=== PATIENT | male | born 1960 | race Caucasian/White ===

== ENCOUNTER 2020-04-13 15:40 | Emergency (ER) | payer BC, SELFPAY ==
[2020-04-13 17:39] LABS: Absolute Lymphocytes (CBC) 0.5 K/uL (0.7-4.9); Basophils % 0.2 % (0-1.3); Hematocrit 43.6 % (39.6-49.0); Lymphocytes % 5.3 % (15.3-44.8); MPV 8.5 fL (7.6-11.3); RBC Red Blood Cell Count 3.85 M/uL (4.33-5.43)
[2020-04-13 17:40] LABS: Urine Blood TRACE (NEG); Urine Glucose NEGATIVE (NEG); Urine Protein NEGATIVE (NEG); Urine pH 7.5 (5.0-7.0)
[2020-04-13 17:40] LABS: Protime INR 1.17
[2020-04-13] MEDS ORDERED: NA CHLORIDE 0.9% 1,000 ML ONE (17:44)
[2020-04-13 17:51] LABS: Urine Bacteria <20 /HPF (NONE SEEN); Urine Culture Reflex Order NOT NEEDED
[2020-04-13 17:56] LABS: ALT/SGPT 20 U/L (12-78); AST/SGOT 62 U/L (15-37); Albumin 2.3 g/dL (3.4-5.0); Alkaline Phosphatase 85 U/L (45-117); BUN Blood Urea Nitrogen 8 mg/dL (7-18); Bicarbonate 23 mmol/L (21-32); Bilirubin Direct 0.7 mg/dL (0-0.2); Bilirubin Total 1.2 mg/dL (0.2-1.0); Glucose Level 110 mg/dL (74-106); Magnesium 1.5 mg/dL (1.8-2.4); Potassium 3.5 mmol/L (3.5-5.1); Protein, Total 7.5 g/dL (6.4-8.2); Sodium Level 130 mmol/L (136-145); Troponin (Emerg Dept Use Only) < 0.02 ng/mL (0.0-0.045)
[2020-04-13 18:40] LABS: Blood Morphology Comment NOTED (NOT SEEN); Macrocytosis 1+; Platelet Estimate ADEQ; Urine White Blood Cell Casts OK
--- NOTE | 2020-04-13 18:54 | RAD REPORT ---
EXAM DESCRIPTION: RAD - Chest Single View - 04/13/2020 5:46 pm CLINICAL HISTORY: weakness, shortness of breath TECHNIQUE: AP portable chest image was obtained 04/13/2020 5:46 pm . FINDINGS: No focal mass or consolidation. Interstitial markings are mildly prominent. This is suspec dnanielle to be baseline pattern. No significant failure or volume overload. Heart and vasculature are norm al. No measurable pleural effusion and no pneumothorax. No acute bony abnormality seen. No acute aort ic findings suspected. IMPRESSION: No acute cardiopulmonary process.
[2020-04-13] MEDS ORDERED: Magnesium Sulfate 2gm IVPB 2 G/50 ML BAG IV ONE (18:55)
--- NOTE | 2020-04-13 21:03 | ER ---
Nurse's Notes [facility] Name: Graham Day Age: 60 yrs Sex: Male : 1960 Arrival Date: 04/13/2020 Time: 15:50 Bed 6 Private MD: Diagnosis: Weakness;Hypomagnesemia Presentation: 04/13 15:51 Chief complaint: EMS states: Tones out for generalized weakness that began on Saturday, jl7 feels shaky on standing, pt denies pain, denies N/V/D, reports having the chills on Saturday evening, did not take his temperature. Coronavirus screen: Patient denies a cough. Patient denies shortness of breath or difficulty breathing. Patient denies measured and/or subjective temperature greater than 100.4F prior to today's visit. Patient denies travel on a cruise ship or to a country the [facility] currently lists as an affected area. Patient denies contact with known and/or suspected case of COVID-19. Ebola Screen: No symptoms or risks identified at this time. Initial Sepsis Screen: Does the patient meet any 2 criteria? HR > 90 bpm. No. Patient's initial sepsis screen is negative. Does the patient have a suspected source of infection? No. Patient's initial sepsis screen is negative. Risk Assessment: Do you want to hurt yourself or someone else? Patient reports no desire to harm self or others. Onset of symptoms was April 11, 2020. Care prior to arrival: Medication(s) given: Normal saline infusion, 1000 mL, IV initiated. 18 GA, in the left antecubital area, Glucose check: 126 BP 105/72; HR 114; O2 95%; RR 18; Temp 98.7. Transition of care: patient was not received from another setting of care. 15:51 Method Of Arrival: EMS: [facility] jl7 15:51 Acuity: ANA 3 jl7 Triage Assessment: 15:59 General: Appears in no apparent distress. uncomfortable, Behavior is calm, cooperative, jl7 appropriate for age. Pain: Denies pain. Neuro: Level of Consciousness is awake, alert, obeys commands, Oriented to person, place, time, situation, Reports weakness in right leg and left leg. Cardiovascular: Patient's skin is warm and dry. Respiratory: Airway is patent Respiratory effort is even, unlabored, Respiratory pattern is regular, symmetrical. Derm: Skin is pink, warm \\T\\ dry. Historical: - Allergies: 15:59 No Known Allergies; jl7 - Home Meds: 15:59 None [Active]; jl7 - PMHx: 15:59 Hypertension; jl7 - PSHx: 15:59 None; jl7 - Immunization history:: Adult Immunizations unknown. - Social history:: Smoking status: Patient reports the use of cigarette tobacco products, smokes one pack cigarettes per day. Patient uses alcohol, on a daily basis. "About a pint of whiskey a day.". Screenin:32 Abuse screen: Denies threats or abuse. Denies injuries from another. Nutritional jl7 screening: No deficits noted. Tuberculosis screening: No symptoms or risk factors identified. Fall Risk IV access (20 points). Gait- Weak (10 pts.). Total Choi Fall Scale indicates Low Risk Score (25-44 pts). Fall prevention measures have been instituted. Side Rails Up X 2 Placed close to Nursing Station Frequent Obs/Assesments occuring As available Patient and Family Educated on Fall Prevention Program and strategies. Assessment: 17:32 Reassessment: Patient appears in no apparent distress at this time. No changes from [facility] previously documented assessment. Patient and/or family updated on plan of care and expected duration. Pain level reassessed. Patient is alert, oriented x 3, equal unlabored respirations, skin warm/dry/pink. 18:53 Reassessment: Patient appears in no apparent distress at this time. No changes from [facility] previously documented assessment. Patient and/or family updated on plan of care and expected duration. Pain level reassessed. Patient is alert, oriented x 3, equal unlabored respirations, skin warm/dry/pink. 19:40 General: Appears in no apparent distress. Behavior is appropriate for age. ea 19:40 Neuro: Level of Consciousness is awake, alert, obeys commands, Oriented to person, ea place, time. Cardiovascular: Patient's skin is warm and dry. Respiratory: Airway is patent Respiratory effort is even, unlabored, Respiratory pattern is regular, symmetrical. Derm: Skin is dry, Skin is normal, Skin temperature is warm. 20:00 Reassessment: Patient and/or family updated on plan of care and expected duration. Pain ea level reassessed. Patient is alert, oriented x 3, equal unlabored respirations, skin warm/dry/pink. 21:20 Reassessment: Patient and/or family updated on plan of care and expected duration. Pain ea level reassessed. Patient is alert, oriented x 3, equal unlabored respirations, skin warm/dry/pink. Discharge instruction given to patient, verbalized the understanding of instruction. Pt left ED ambulatory tolerating well. Vital Signs: 15:51 BP 107 / 74; Pulse 100; Resp 17 S; Temp 98.3(O); Pulse Ox 95% on R/A; Weight 88.45 kg jl7 (R); Height 5 ft. 11 in. (180.34 cm) (R); Pain 0/10; 17:31 BP 111 / 85; Pulse 88; Resp 17 S; Pulse Ox 97% on R/A; Pain 0/10; jl7 18:53 BP 111 / 78; Pulse 88; Resp 17; Pulse Ox 97% ; jl7 19:58 BP 139 / 85; Pulse 63; Resp 18; Pulse Ox 99% on R/A; ea 20:30 BP 127 / 79; Pulse 73; Resp 18; Pulse Ox 99% ; ea 21:09 BP 120 / 79; Pulse 68; Resp 18; Temp 98.0(TE); Pulse Ox 98% on R/A; ea 15:51 Body Mass Index 27.20 (88.45 kg, 180.34 cm) 7 ED Course: 15:50 Patient arrived in ED. 7 15:[address] [facility] 15:58 Subhash Hernandez, RN is Primary Nurse. 7 15:59 Arm band placed on right wrist. 7 16:00 Patient has correct armband on for positive identification. Bed in low position. Call [facility] light in reach. Side rails up X2. wellness director on. Pulse ox on. NIBP on. Warm blanket given. 16:00 Initial lab(s) drawn, by al, sent to lab. Urine collected: clean catch specimen, clear. [facility] Maintain EMS IV. Dressing intact. Good blood return noted. Site clean \\T\\ dry. Gauge \\T\\ site: 18 Left AC. 16:44 Sumit Flanagan PA is PHCP. cp 16:44 Graham Trujillo MD is Attending Physician. cp 17:40 EKG done, by ED staff, reviewed by Sumit CARRERA. [facility] 17:47 XRAY Chest (1 view) In Process Unspecified. EDMS 21:08 No provider procedures requiring assistance completed. ea 21:15 IV discontinued, intact, bleeding controlled, No redness/swelling at site. Pressure ea dressing applied. 23:56 US Abdomen Limited In Process Unspecified. EDMS Administered Medications: 17:38 Drug: NS 0.9% 1000 ml Route: IV; Rate: 1000 ml/hr; Site: left antecubital; [facility] 17:45 Follow up: Rate change 75 ml/hr [facility] 20:00 Follow up: Response: No adverse reaction; IV Status: Completed infusion ea 18:52 Drug: Magnesium Sulfate 2 grams Route: IVPB; Infused Over: 1 hrs; Site: left jl7 antecubital; 20:00 Follow up: Response: No adverse reaction; IV Status: Completed infusion ea Outcome: 21:03 Discharge ordered by . cp 21:21 Discharged to home ambulatory. ea 21:21 Condition: stable 21:21 Discharge instructions given to patient, Instructed on discharge instructions, follow up and referral plans. Demonstrated understanding of instructions, follow-up care. 21:22 Patient left the ED. ea Signatures: Dispatcher [employer] EDMS Sumit Flanagan PA PA cp Leal, Jahala RN RN [facility] Deana Bailey [facility] Agnes Lazaro RN RN adrienne Corrections: (The following items were deleted from the chart) 21:08 19:58 BP 139 / 85; Pulse 33bpm; Resp 18bpm; Pulse Ox 99% RA; ea ea
--- NOTE | 2020-04-13 21:04 | EDPHYS ---
Physician Documentation [facility] Name: Graham Day Age: 60 yrs Sex: Male : 1960 Arrival Date: 04/13/2020 Time: 15:50 Bed 6 Private MD: ED Physician Graham Trujillo HPI: 04/13 17:15 This 60 yrs old Male presents to ER via EMS with complaints of General cp Weakness. 17:15 Onset: The symptoms/episode began/occurred 2 day(s) ago. cp 17:15 Associated signs and symptoms: Pertinent positives: vomiting yesterday, none today, cp Pertinent negatives: abdominal pain, chest pain, constipation, cough, diarrhea, dysuria, fever, headache, sore throat. Historical: - Allergies: 15:59 No Known Allergies; jl7 - Home Meds: 15:59 None [Active]; jl7 - PMHx: 15:59 Hypertension; jl7 - PSHx: 15:59 None; jl7 - Immunization history:: Adult Immunizations unknown. - Social history:: Smoking status: Patient reports the use of cigarette tobacco products, smokes one pack cigarettes per day. Patient uses alcohol, on a daily basis. "About a pint of whiskey a day.". ROS: 17:20 Constitutional: Positive for chills, Negative for body aches, fever, poor PO intake. cp 17:20 Eyes: Negative for injury, pain, redness, and discharge. cp 17:20 ENT: Negative for ear pain, sore throat, difficulty swallowing, difficulty handling secretions. 17:20 Cardiovascular: Negative for chest pain, edema, palpitations. 17:20 Respiratory: Negative for cough, shortness of breath, wheezing. 17:20 Abdomen/GI: Negative for abdominal pain, diarrhea, constipation, anorexia, active vomiting. 17:20 Back: Negative for pain at rest, pain with movement. 17:20 : Negative for urinary symptoms. 17:20 Skin: Negative for rash. 17:20 Neuro: Positive for weakness, Negative for altered mental status, headache, syncope. 17:20 All other systems are negative. cp Exam: 17:27 Constitutional: The patient appears in no acute distress, alert, awake, cp non-diaphoretic, non-toxic, well developed, well nourished. 17:27 Head/Face: Normocephalic, atraumatic. cp 17:27 Eyes: Periorbital structures: appear normal, Pupils: equal, round, and reactive to light and accomodation, Extraocular movements: intact throughout, Conjunctiva: normal, no exudate, no injection, Sclera: no appreciated abnormality, Lids and lashes: appear normal, bilaterally. 17:27 ENT: External ear(s): are unremarkable, Ear canal(s): are normal, clear, TM's: dullness, bilaterally, Nose: is normal, Mouth: Lips: moist, Oral mucosa: pink and intact, moist, Posterior pharynx: is normal, airway is patent, no erythema, no exudate, Voice: is normal. 17:27 Neck: ROM/movement: is normal, is supple, without pain, no range of motions limitations, no nuchal rigidity. 17:27 Chest/axilla: Inspection: normal, Palpation: is normal, no crepitus, no tenderness. 17:27 Cardiovascular: Rate: normal, Rhythm: regular, Edema: is not appreciated, JVD: is not appreciated. 17:27 Respiratory: the patient does not display signs of respiratory distress, Respirations: normal, no use of accessory muscles, no retractions, labored breathing, is not present, Breath sounds: are clear throughout, no decreased breath sounds. 17:27 Abdomen/GI: Inspection: abdomen appears normal, Bowel sounds: active, all quadrants, Palpation: abdomen is soft and non-tender, in all quadrants. 17:27 Back: pain, is absent, ROM is normal. 17:27 Skin: cellulitis, is not appreciated, no rash present. 17:27 Neuro: Orientation: to person, place \\T\\ time. Mentation: is normal, Cerebellar function: is grossly normal, Motor: moves all fours, strength is normal, Sensation: no obvious gross deficits. 17:52 ECG was reviewed by the Attending Physician. cp Vital Signs: 15:51 BP 107 / 74; Pulse 100; Resp 17 S; Temp 98.3(O); Pulse Ox 95% on R/A; Weight 88.45 kg jl7 (R); Height 5 ft. 11 in. (180.34 cm) (R); Pain 0/10; 17:31 BP 111 / 85; Pulse 88; Resp 17 S; Pulse Ox 97% on R/A; Pain 0/10; jl7 18:53 BP 111 / 78; Pulse 88; Resp 17; Pulse Ox 97% ; jl7 19:58 BP 139 / 85; Pulse 63; Resp 18; Pulse Ox 99% on R/A; ea 20:30 BP 127 / 79; Pulse 73; Resp 18; Pulse Ox 99% ; ea 21:09 BP 120 / 79; Pulse 68; Resp 18; Temp 98.0(TE); Pulse Ox 98% on R/A; ea 15:51 Body Mass Index 27.20 (88.45 kg, 180.34 cm) jl7 MDM: 16:53 Patient medically screened. cp 18:00 Differential diagnosis: viral Infection, bacterial infection, pneumonia UTI, cp dehydration, electrolyte abnormality, cardiac arrythmia, CT. 21:02 Data reviewed: vital signs, nurses notes, lab test result(s), EKG, radiologic studies, cp plain films, and as a result, I will discharge patient. 21:02 Test interpretation: by ED physician or midlevel provider: ECG. Counseling: I had a cp detailed discussion with the patient and/or guardian regarding: the historical points, exam findings, and any diagnostic results supporting the discharge/admit diagnosis, lab results, radiology results, to return to the emergency department if symptoms worsen or persist or if there are any questions or concerns that arise at home. Response to treatment: the patient's symptoms have markedly improved after treatment, patient is well hydrated. and as a result, I will discharge patient. 04/13 17:11 Order name: Urine Microscopic Only; Complete Time: 18:23 cp 04/13 18:23 Interpretation: Normal except: URBC 5-10. cp 04/13 17:11 Order name: Basic Metabolic Panel; Complete Time: 18:23 cp 04/13 18:24 Interpretation: Normal except: NA 130; GLUC 110; CA 7.9. cp 04/13 17:11 Order name: CBC with Diff; Complete Time: 19:05 cp 04/13 18:23 Interpretation: Normal except: RBC 3.85; MCV 113.3; MCH 39.4; SKY% 86.7; LYM% 5.3; NEUT cp A 8.7; LYMA 0.5. 04/13 17:11 Order name: LFT's; Complete Time: 18:23 cp 04/13 18:24 Interpretation: Normal except: AST 62; BILIT 1.2; BILID 0.7; ALB 2.3; GLOB 5.2; A/G 0.4.cp / 17:11 Order name: Magnesium; Complete Time: 18:23 cp / 19:06 Interpretation: Abnormal: MG 1.5. cp / 17:11 Order name: PT-INR; Complete Time: 18:23 cp 04/13 17:11 Order name: Troponin (emerg Dept Use Only); Complete Time: 18:23 cp 04/13 19:06 Interpretation: Reviewed. cp / 17:11 Order name: EKG; Complete Time: 17:12 cp 04/13 17:11 Order name: XRAY Chest (1 view); Complete Time: 19:05 cp 04/13 19:05 Interpretation: Report review. cp 04/13 17:19 Order name: Urine Dipstick--Ancillary (enter results); Complete Time: 18:23 bd 04/13 19:06 Interpretation: Normal except: UBLD TRACE; UPH 7.5. cp / 18:40 Order name: CBC Smear Scan; Complete Time: 19:05 EDMS 06/03 17:11 Order name: Urine Dipstick-Ancillary (obtain specimen); Complete Time: 17:20 cp / 17:11 Order name: Cardiac monitoring; Complete Time: 17:20 cp / 17:11 Order name: EKG - Nurse/Tech; Complete Time: 17:42 cp / 17:11 Order name: IV Saline Lock; Complete Time: 17:20 cp 04/13 17:11 Order name: Labs collected and sent; Complete Time: 17:20 cp 03 17:11 Order name: O2 Per Protocol; Complete Time: 17:20 cp /03 17:11 Order name: O2 Sat Monitoring; Complete Time: 17:20 cp /03 21:01 Order name: Vital Signs: recheck to include temp; Complete Time: 21:09 cp EC:52 Rate is 88 beats/min. Rhythm is regular. VA interval is normal. QRS interval is normal. cp QT interval is normal. T waves are Inverted in leads aVL, aVR. Interpreted by me. Reviewed by me. Administered Medications: 17:38 Drug: NS 0.9% 1000 ml Route: IV; Rate: 1000 ml/hr; Site: left antecubital; [facility] 17:45 Follow up: Rate change 75 ml/hr [facility] 20:00 Follow up: Response: No adverse reaction; IV Status: Completed infusion ea 18:52 Drug: Magnesium Sulfate 2 grams Route: IVPB; Infused Over: 1 hrs; Site: left 7 antecubital; 20:00 Follow up: Response: No adverse reaction; IV Status: Completed infusion ea Disposition: 04/14 09:08 Co-signature as Attending Physician, Graham Trujillo MD I agree with the assessment and kdr plan of care. Disposition: 04/13/20 21:03 Discharged to Home. Impression: Weakness, Hypomagnesemia. - Condition is Stable. - Discharge Instructions: Hypomagnesemia, Weakness. - Medication Reconciliation Form, Thank You Letter, Antibiotic Education, Prescription Opioid Use form. - Follow up: Private Physician; When: 1 - 2 days; Reason: Recheck today's complaints. - Problem is new. - Symptoms have improved. Signatures: Dispatcher [employer] EDSD Graham Trujillo MD MD kdr Sumit Flanagan PA PA cp Leal, Jahala, RN RN jl7 Agnes Lazaro RN RN ea Corrections: (The following items were deleted from the chart) 04/13 18:24 18:23 Normal except: NA 130; GLUC 110. cp cp 21:22 21:03 04/13/2020 21:03 Discharged to Home. Impression: Weakness; Hypomagnesemia. ea Condition is Stable. Forms are Medication Reconciliation Form, Thank You Letter, Antibiotic Education, Prescription Opioid Use. Follow up: Private Physician; When: 1 - 2 days; Reason: Recheck today's complaints. Problem is new. Symptoms have improved. cp
[2020-04-13 22:09] VITALS: BP 120/79; TEMP 98; O2SAT 98
--- NOTE | 2020-04-14 09:55 | EKG ---
Test Date: 2020-04-13 Test Time: 17:43:42 Road Boss: JOSE MEASUREMENT RESULTS: Intervals: Rate: 88 CT: 184 QRSD: 80 QT: 364 QTc: 440 Dunlap: P: 39 CT: 184 QRS: 26 T: 74 INTERPRETIVE STATEMENTS: Sinus rhythm with occasional premature ventricular complexes Septal infarct, age undetermined Abnormal ECG No previous ECG available for comparison Electronically Signed On 04-14-20 09:53:58 CDT by Jose Barros
== END 2020-04-13 21:22 | disposition home or self-care (01) ==
LOC: ER 15:40
DX: E83.42 Hypomagnesemia (principal); I10 Essential (primary) hypertension; F17.210 Nicotine dependence, cigarettes, uncomplicated
CPT/HCPCS: 36415; 71045; 76705; 80048; 80076; 81003; 81015; 83735; 84484; 85025; 85610; 93005; 96361; 96365; 99284; J3475; J7030

== ENCOUNTER 2022-07-09 20:10 | Inpatient (IN) | payer SELFPAY ==
[2022-07-09] MEDS ORDERED: FAMOTIDINE 20 MG/2 ML VIAL IV ONE (21:24)
[2022-07-09] MEDS ORDERED: NA CHLORIDE 0.9% 500 ML ONE (21:24)
[2022-07-09] MEDS ORDERED: THIAMINE 200 MG/2 ML INJ ONE (21:24)
[2022-07-09 21:33] LABS: Absolute Lymphocytes (CBC) 1.4 K/uL (0.7-4.9); Lymphocytes % 11.7 % (15.3-44.8); MCV 116.3 fL (80-100); MPV 8.4 fL (7.6-11.3); RBC Red Blood Cell Count 3.18 M/uL (4.33-5.43)
[2022-07-09 21:38] LABS: Protime INR 1.46
[2022-07-09] MEDS ORDERED: MAGNESIUM SULFATE 1 gm IVPB 1 GM/100 ML BAG IV ONE ×2 (21:39→23:39)
[2022-07-09] MEDS ORDERED: ONDANSETRON 4 MG/2 ML VIAL ONE (21:40)
[2022-07-09] MEDS ORDERED: MORPHINE 4 MG/ML SYR ONE (21:40)
[2022-07-09 21:46] LABS: Urine Blood Negative (Negative); Urine Glucose Negative (Negative); Urine Protein Negative (Negative); Urine Specific Gravity 1.015 (1.005-1.030)
--- NOTE | 2022-07-09 22:01 | RAD REPORT ---
EXAM DESCRIPTION: RAD - Chest Single View - 07/09/2022 9:42 pm CLINICAL HISTORY: PAIN, fall with chest and shoulder pain COMPARISON: Portable 04/13/2020 TECHNIQUE: AP portable chest image was obtained 07/09/2022 9:42 pm . FINDINGS: Chronic interstitial lung pattern matches comparison. No peripheral mass or consolidations seen. Right hemidiaphragm elevation noted. Heart and vasculature are normal. No measurable pleural e ffusion and no pneumothorax. Proximal humerus findings are separately detailed in right shoulder repo rt. No acute aortic findings suspected. IMPRESSION: No acute cardiopulmonary process. No significant change from comparison imaging.
--- NOTE | 2022-07-09 22:03 | RAD REPORT ---
EXAM DESCRIPTION: Shoulder Right 2 View - 07/09/2022 9:42 pm CLINICAL HISTORY: PAIN, fall COMPARISON: No comparisons TECHNIQUE: Internal and external rotation views of the right shoulder were obtained. FINDINGS: Comminuted proximal humerus fracture is seen. Oblique fracture extends through the greater tuberosity. Fracture line extends inferiorly into the proximal shaft of the humerus. No significant distraction. No pathologic bone process seen. Humeral head articular surface maintains articulation w ith the bony glenoid. AC joint is normal in appearance. IMPRESSION: Proximal humerus fracture as detailed.
[2022-07-09 22:07] LABS: Albumin 1.9 g/dL (3.4-5.0); Bilirubin Direct 3.4 mg/dL (0-0.2); Troponin High Sensitivity 11.3 pg/mL (<58.9)
[2022-07-09 22:12] LABS: Bilirubin Total 5.4 mg/dL (0.2-1.0); Magnesium 1.3 mg/dL (1.8-2.4); Potassium 2.4 mmol/L (3.5-5.1)
--- NOTE | 2022-07-09 22:19 | EDPHYS ---
Physician Documentation [facility] Name: Graham Day Age: 62 yrs Sex: Male : 1960 Arrival Date: 07/09/2022 Time: 20:12 Bed 15 Private MD: ED Physician Sumit Lau HPI: 07/09 20:50 This 62 yrs old Male presents to ER via EMS with complaints of falls and hx tyler of shoulder pain. 20:50 The patient or guardian complains of decreased range of motion, pain. right shoulder. tyler Context: The problem was sustained at home. Onset: The symptoms/episode began/occurred last night. Modifying factors: the symptoms are alleviated by nothing. Associated signs and symptoms: The patient has no apparent associated signs or symptoms. Severity of symptoms: At their worst the symptoms were mild, in the emergency department the symptoms are unchanged. Treatment prior to arrival includes: no previous treatment. The patient has not experienced similar symptoms in the past. Historical: - Allergies: 20:18 No Known Allergies; vc1 - Home Meds: 20:18 Magnesium Oxide Oral [Active]; vc1 - PMHx: 20:18 Hypertension; Hydradentitis; ETOH abuse; vc1 - PSHx: 20:18 None; vc1 - Immunization history:: Adult Immunizations up to date, Client reports receiving the 2nd dose of the Covid vaccine. - Social history:: Smoking status: Patient reports the use of cigarette tobacco products, smokes one pack cigarettes per day. Patient uses alcohol, on a daily basis. 1 pint whiskey per day. - Family history:: not pertinent. ROS: 20:50 Constitutional: Negative for fever, chills, and weight loss, Eyes: Negative for injury, tyler pain, redness, and discharge, ENT: Negative for injury, pain, and discharge, Neck: Negative for injury, pain, and swelling, Cardiovascular: Negative for chest pain, palpitations, and edema, Respiratory: Negative for shortness of breath, cough, wheezing, and pleuritic chest pain, Abdomen/GI: Negative for abdominal pain, nausea, vomiting, diarrhea, and constipation, Back: Negative for injury and pain, : Negative for injury, bleeding, discharge, and swelling, Neuro: Negative for headache, weakness, numbness, tingling, and seizure, Psych: Negative for depression, anxiety, suicide ideation, homicidal ideation, and hallucinations, Allergy/Immunology: Negative for hives, rash, and allergies, Endocrine: Negative for neck swelling, polydipsia, polyuria, polyphagia, and marked weight changes, Hematologic/Lymphatic: Negative for swollen nodes, abnormal bleeding, and unusual bruising. 20:50 MS/extremity: Positive for decreased range of motion, swelling, tenderness, of the anterior aspect of right shoulder and posterior aspect of right shoulder, bilateral lower extremity edema. Exam: 20:50 Constitutional: This is a well developed, well nourished patient who is awake, alert, tyler and in no acute distress. Head/Face: Normocephalic, atraumatic. Eyes: Pupils equal round and reactive to light, extra-ocular motions intact. Lids and lashes normal. Conjunctiva and sclera are non-icteric and not injected. Cornea within normal limits. Periorbital areas with no swelling, redness, or edema. ENT: Nares patent. No nasal discharge, no septal abnormalities noted. Tympanic membranes are normal and external auditory canals are clear. Oropharynx with no redness, swelling, or masses, exudates, or evidence of obstruction, uvula midline. Mucous membranes moist. Neck: Trachea midline, no thyromegaly or masses palpated, and no cervical lymphadenopathy. Supple, full range of motion without nuchal rigidity, or vertebral point tenderness. No Meningismus. Chest/axilla: Normal chest wall appearance and motion. Nontender with no deformity. No lesions are appreciated. Cardiovascular: Regular rate and rhythm with a normal S1 and S2. No gallops, murmurs, or rubs. Normal PMI, no JVD. No pulse deficits. Respiratory: Lungs have equal breath sounds bilaterally, clear to auscultation and percussion. No rales, rhonchi or wheezes noted. No increased work of breathing, no retractions or nasal flaring. Abdomen/GI: Soft, non-tender, with normal bowel sounds. No distension or tympany. No guarding or rebound. No evidence of tenderness throughout. Back: No spinal tenderness. No costovertebral tenderness. Full range of motion. Male : Normal genitalia with no discharge or lesions. Skin: Warm, dry with normal turgor. Normal color with no rashes, no lesions, and no evidence of cellulitis. Neuro: Awake and alert, GCS 15, oriented to person, place, time, and situation. Cranial nerves II-XII grossly intact. Motor strength 5/5 in all extremities. Sensory grossly intact. Cerebellar exam normal. Normal gait. Psych: Awake, alert, with orientation to person, place and time. Behavior, mood, and affect are within normal limits. 20:50 Musculoskeletal/extremity: Extremities: noted in the anterior aspect of right shoulder, right bicep, posterior aspect of right shoulder and right tricep: decreased ROM, pain, ROM: Weight bearing: able to fully bear weight, DVT Exam: no pain, no tenderness, negative Homans' sign noted on exam, no appreciated bluish discoloration, no erythema, no increased warmth, swelling. 20:59 Skin: abscess, that is small, of the abdomen, with fluctuance, with induration, tyler cellulitis, that is minimal, induration, that is moderate is noted, injury, is not appreciated. 21:55 ECG was reviewed by the Attending Physician. [facility] Vital Signs: 20:13 BP 143 / 78; Pulse 84; Resp 17; Temp 97.7(O); Pulse Ox 97% on R/A; Weight 81.65 kg; vc1 Height 5 ft. 11 in. (180.34 cm); Pain 1/10; 20:22 Pain 1/10; vc1 21:00 BP 113 / 90; Pulse 86; Resp 22; Pulse Ox 96% ; vc1 22:00 BP 127 / 61; Pulse 77; Resp 20; Pulse Ox 95% on R/A; vc1 07/10 00:00 BP 132 / 84; Pulse 78; Resp 20; Pulse Ox 96% ; vc1 07/09 20:13 Body Mass Index 25.10 (81.65 kg, 180.34 cm) vc1 MDM: 07/09 20:12 Patient medically screened. tyler 20:59 Differential diagnosis: Anterior dislocation with fracture, Posterior dislocation with tyler fracture, humeral head fracture, glenoid fracture. Data reviewed: vital signs, nurses notes, lab test result(s), EKG, radiologic studies, CT scan, plain films. Data interpreted: front clerk: rate is 84 beats/min, rhythm is regular, Pulse oximetry: on room air is 97 %. Test interpretation: by ED physician or midlevel provider: ECG, plain radiologic studies. Counseling: I had a detailed discussion with the patient and/or guardian regarding: the historical points, exam findings, and any diagnostic results supporting the discharge/admit diagnosis, lab results, radiology results, the need for outpatient follow up, for definitive care, a family practitioner, a orthopedic surgeon. 07/09 20:43 Order name: Basic Metabolic Panel; Complete Time: 23:05 [facility] 07/09 20:43 Order name: CBC with Diff; Complete Time: 21:57 [facility] 07/09 20:43 Order name: LFT's; Complete Time: 23:05 [facility] 07/09 20:43 Order name: Magnesium; Complete Time: 23:05 [facility] 07/09 20:43 Order name: NT PRO-BNP; Complete Time: 23:05 [facility] 07/09 20:43 Order name: PT-INR; Complete Time: 21:57 [facility] 07/09 20:43 Order name: Troponin HS; Complete Time: 23:05 [facility] 07/09 20:43 Order name: Lipase; Complete Time: 23:05 [facility] 07/09 21:47 Order name: Urine Dipstick-Ancillary; Complete Time: 21:57 [facility] 07/09 22:16 Order name: SARS RAPID; Complete Time: 04:05 [facility] 07/09 22:35 Order name: Phosphorus; Complete Time: 23:05 [facility] 07/10 04:59 Order name: CBC with Automated Diff; Complete Time: 05:38 [facility] 07/10 05:10 Order name: Ammonia; Complete Time: 05:38 [facility] 07/09 20:43 Order name: XRAY Chest (1 view); Complete Time: 22:10 [facility] 07/09 20:43 Order name: CT Traumagram (Head C Spine CAP W Con) [facility] 07/09 20:43 Order name: Shoulder Right (2 View) XRAY; Complete Time: 22:10 [facility] 07/10 05:26 Order name: CBC Smear Scan; Complete Time: 05:38 [facility] 07/10 05:59 Order name: Hemoglobin A1c [facility] 07/10 06:12 Order name: Comprehensive Metabolic Panel [facility] 07/10 06:12 Order name: Lipid Profile [facility] 07/10 06:12 Order name: Magnesium [facility] 07/10 06:12 Order name: Thyroid Stimulating Hormone [facility] 07/10 06:12 Order name: Folic Acid, (Folate) [facility] 07/10 06:12 Order name: Vitamin B12 Level [facility] 07/10 06:25 Order name: T4 Free [facility] 07/10 14:31 Order name: Basic Metabolic Panel [facility] 07/10 14:31 Order name: Magnesium [facility] 07/09 20:43 Order name: EKG; Complete Time: 20:44 [facility] 07/09 20:43 Order name: Cardiac monitoring; Complete Time: 21:51 [facility] 07/09 20:43 Order name: EKG - Nurse/Tech; Complete Time: 21:52 [facility] 07/09 20:43 Order name: IV Saline Lock; Complete Time: 21:40 [facility] 07/09 20:43 Order name: Labs collected and sent; Complete Time: 21:40 [facility] 07/09 20:43 Order name: O2 Per Protocol; Complete Time: 21:40 [facility] 07/09 20:43 Order name: O2 Sat Monitoring; Complete Time: 21:40 [facility] 07/09 20:43 Order name: Urine Dipstick-Ancillary (obtain specimen); Complete Time: 21:51 [facility] 07/09 21:33 Order name: Shoulder Immobilizer; Complete Time: 21:52 [facility] 07/09 22:16 Order name: IV Saline Lock - Large Bore; Complete Time: 00:13 [facility] EC:55 Rate is 76 beats/min. Rhythm is regular. QRS [place] is Normal. AL interval is normal. QRS tyler interval is normal. QT interval is normal. No Q waves. T waves are Normal. No ST changes noted. Clinical impression: NSR w/ Non-specific ST/T Changes. Interpreted by me. Reviewed by me. Administered Medications: 21:26 Drug: Pepcid (famotidine) 20 mg Route: IVP; Site: left antecubital; vc1 21:27 Follow up: Response: No adverse reaction vc1 21:26 Drug: Thiamine 100 mg Route: IV; Rate: bolus; Site: left antecubital; vc1 21:27 Follow up: IV Status: Completed infusion; IV Intake: 1ml vc1 :26 Drug: NS 0.9% 500 ml Route: IV; Rate: bolus; Site: left antecubital; vc1 22:00 Follow up: IV Status: Completed infusion; IV Intake: 500ml vc1 21:39 Drug: Magnesium Sulfate 1 grams Route: IVPB; Infused Over: 1 hrs; Site: left vc1 antecubital; 22:40 Follow up: IV Status: Completed infusion; IV Intake: 100ml vc1 21:39 Drug: morphine 4 mg Route: IVP; Infused Over: 4 mins; Site: left antecubital; vc1 22:00 Follow up: Response: No adverse reaction; Marked relief of symptoms; Pain is decreased vc1 21:40 Drug: Zofran (Ondansetron) 4 mg Route: IVP; Site: left antecubital; vc1 22:00 Follow up: Response: No adverse reaction; Marked relief of symptoms vc1 23:43 Drug: Vitamin K1 (phytonadione) 10 mg Route: Sub-Q; Site: right lower abdomen; vc1 07/10 01:59 Follow up: Response: No adverse reaction vc1 07/09 23:44 Drug: Potassium Effervescent Tablet 50 mEq Route: PO; vc1 07/10 00:00 Follow up: Response: No adverse reaction vc1 07/09 23:44 Drug: NS 0.9% with KCl 20 mEq/L 1000 ml Route: IV; Rate: 125 ml/hr; Site: left vc1 antecubital; 07/10 01:59 Follow up: IV Status: Infusion continued upon admission vc1 07/09 23:44 Drug: Potassium Chloride 20 mEq Route: IV; Rate: per protocol; Site: left antecubital; vc1 07/10 01:59 Follow up: IV Status: Infusion continued upon admission vc1 00:13 Drug: Magnesium Sulfate 1 grams Route: IVPB; Infused Over: 1 hrs; Site: left forearm; vc1 01:13 Follow up: IV Status: Completed infusion; IV Intake: 100ml vc1 Disposition Summary: 07/09/22 22:18 Hospitalization Ordered Hospitalization Status: Inpatient Admission tyler Provider: Luis A Anderson cha Condition: Fair tyler Problem: new tyler Symptoms: have improved tyler Bed/Room Type: Standard tyler Location: [facility] ER HOLD(07/09/22 23:51) mw Room Assignment: ERHOLD-(07/09/22 23:51) mw Diagnosis - Alcoholic cirrhosis of liver tyler - Repeated falls tyler - History of falling tyler - Fall on same level, unspecified tyler - Fall (on) (from) other stairs and steps tyler - 2-part displaced fracture of surgical neck of right humerus tyler - Hypomagnesemia tyler - Hypokalemia tyler - Cutaneous abscess of abdominal wall - small tyler - Hidradenitis suppurativa [facility] - Weakness [facility] Discharge Instructions: - Discharge Summary Sheet tyler - Skin Abscess tyler - Alcohol Intoxication tyler - Alcohol Use Disorder tyler - Hidradenitis Suppurativa [facility] - Fall Prevention in the Home, Adult tyler - Skin Abscess, [id number] tyler - Alcohol Intoxication, [id number]-jp-[id number] tyler - Alcohol Abuse and Nutrition tyler - Humerus Fracture Treated With Immobilization tyler - Humerus Fracture Treated With Immobilization, [id number] [facility] Forms: - Medication Reconciliation Form [facility] - SBAR form [facility] Prescriptions: - Doxycycline Hyclate 100 mg Oral Tablet - take 1 tablet by ORAL route every 12 hours; 20 tablet; Refills: 0, Product [facility] Selection Permitted - Bactrim DS 800-160 mg Oral Tablet - take 1 tablet by ORAL route every 12 hours for 10 days; 20 tablet; Refills: 0, [facility] Product Selection Permitted - Tylenol-Codeine #3 300 mg-30 mg Oral - take 2 tablet by ORAL route every 6 hours; 20 tablet; Refills: 0, Product [facility] Selection Permitted Signatures: Dispatcher [employer] EDMS Angeles Freeman RN RN mw Anderson, Corey, MD MD cha Calcote, Vanessa, RN RN vc1 Anastacia Stokes PA PA sb3 Corrections: (The following items were deleted from the chart) 07/09 22:35 22:18 PHOSPHORUS+[id number].LAB.BRZ ordered. [facility] 23:51 22:18 Telemetry/MedSurg (Inpatient) [facility] 23:51 22:18 [facility]
--- NOTE | 2022-07-09 22:19 | ER ---
Nurse's Notes [facility] Name: Graham Day Age: 62 yrs Sex: Male : 1960 Arrival Date: 07/09/2022 Time: 20:12 Bed 15 Private MD: Diagnosis: Alcoholic cirrhosis of liver;Repeated falls;History of falling;Fall on same level, unspecified;Fall (on) (from) other stairs and steps;2-part displaced fracture of surgical neck of right humerus;Hypomagnesemia;Hypokalemia;Cutaneous abscess of abdominal wall-small;Hidradenitis suppurativa;Weakness Presentation: 07/09 20:13 Chief complaint: EMS states: "EMS was called out last night because pt had been vc1 drinking was walking up his stairs, dripped and fell on his right shoulder. When EMS arrived he refused to go. We were called out again today around 1500 because he fell again and needed help off of the floor. He also refused to go to the hospital at that time. He called us this last time because he felt so week he was afraid he wasn't going to be able to get down the stairs.". Coronavirus screen: Vaccine status: Patient reports receiving the 2nd dose of the covid vaccine. 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 Ebola Screen: No symptoms or risks identified at this time. Initial Sepsis Screen: Does the patient meet any 2 criteria? No. Patient's initial sepsis screen is negative. Does the patient have a suspected source of infection? No. Patient's initial sepsis screen is negative. Risk Assessment: Do you want to hurt yourself or someone else? Patient reports no desire to harm self or others. Onset of symptoms was July 08, 2022 at 21:00. 20:13 Method Of Arrival: EMS: [facility] vc1 20:13 Acuity: ANA 3 vc1 Triage Assessment: 20:18 General: Appears in no apparent distress. uncomfortable, Behavior is calm, cooperative, vc1 appropriate for age. Pain: Complains of pain in anterior aspect of right shoulder and posterior aspect of right shoulder Pain does not radiate. Pain currently is 1 out of 10 on a pain scale. at worst was 10 out of 10 on a pain scale. Quality of pain is described as sharp, Pain began suddenly, Is continuous, Alleviated by rest, Aggravated by repositioning, Noted to be guarding, resistant to movement. EENT: No deficits noted. Neuro: Level of Consciousness is awake, alert, obeys commands, Oriented to person, place, time, situation, Appropriate for age. Cardiovascular: Capillary refill < 3 seconds Patient's skin is warm and dry. Respiratory: Airway is patent Respiratory effort is even, unlabored, Respiratory pattern is regular, symmetrical. GI: No deficits noted. : No deficits noted. Derm: Bruising that is on right tricep. Musculoskeletal: Range of motion: limited in right shoulder. Musculoskeletal: Tenderness present in anterior aspect of right shoulder and posterior aspect of right shoulder. Historical: - Allergies: 20:18 No Known Allergies; vc1 - Home Meds: 20:18 Magnesium Oxide Oral [Active]; vc1 - PMHx: 20:18 Hypertension; Hydradentitis; ETOH abuse; vc1 - PSHx: 20:18 None; vc1 - Immunization history:: Adult Immunizations up to date, Client reports receiving the 2nd dose of the Covid vaccine. - Social history:: Smoking status: Patient reports the use of cigarette tobacco products, smokes one pack cigarettes per day. Patient uses alcohol, on a daily basis. 1 pint whiskey per day. - Family history:: not pertinent. Screenin:22 Abuse screen: Denies threats or abuse. Nutritional screening: Pt with history of ETOH vc1 abuse. Tuberculosis screening: No symptoms or risk factors identified. Fall Risk Fall in past 12 months (25 points). Secondary diagnosis (15 points) impaired mobility, IV access (20 points). Ambulatory Aid- None/Bed Rest/Nurse Assist (0 pts). Gait- Impaired (20 pts.). Mental Status- Overestimates/Forgets Limitations (15 pts.). Total Choi Fall Scale indicates High Risk Score (45 or more points). Fall prevention measures have been instituted. Side Rails Up X 2 Placed Close to Nursing Station 1:1 Attendant Assigned Frequent Obs/Assessments Occuring Family Present and informed to notify staff if the need to leave the bedside As available patient and family educated on Fall Prevention Program and Strategies. Assessment: 21:30 Reassessment: See triage assessment. vc1 22:00 Reassessment: Patient appears in no apparent distress at this time. Patient and/or vc1 family updated on plan of care and expected duration. Pain level reassessed. Patient is alert, oriented x 3, equal unlabored respirations, skin warm/dry/pink. 23:00 Reassessment: No changes from previously documented assessment. Patient and/or family vc1 updated on plan of care and expected duration. Pain level reassessed. Patient is alert, oriented x 3, equal unlabored respirations, skin warm/dry/pink. 07/10 00:00 Reassessment: No changes from previously documented assessment. Patient and/or family vc1 updated on plan of care and expected duration. Pain level reassessed. Patient is alert, oriented x 3, equal unlabored respirations, skin warm/dry/pink. patient spilt urine on self. changed patients gown and replaced linen. Asked for a condom cath from House Supervision. 01:00 Reassessment: No changes from previously documented assessment. Patient and/or family vc1 updated on plan of care and expected duration. Pain level reassessed. Patient is alert, oriented x 3, equal unlabored respirations, skin warm/dry/pink. Vital Signs: 07/09 20:13 BP 143 / 78; Pulse 84; Resp 17; Temp 97.7(O); Pulse Ox 97% on R/A; Weight 81.65 kg; vc1 Height 5 ft. 11 in. (180.34 cm); Pain 1/10; 20:22 Pain 1/10; vc1 21:00 BP 113 / 90; Pulse 86; Resp 22; Pulse Ox 96% ; vc1 22:00 BP 127 / 61; Pulse 77; Resp 20; Pulse Ox 95% on R/A; vc1 07/10 00:00 BP 132 / 84; Pulse 78; Resp 20; Pulse Ox 96% ; vc1 07/09 20:13 Body Mass Index 25.10 (81.65 kg, 180.34 cm) vc1 ED Course: 07/09 20:12 Patient arrived in ED. mw2 20:12 Sumit Lau MD is Attending Physician. tyler 20:13 Eloina Marroquin RN is Primary Nurse. vc1 20:18 Triage completed. vc1 20:22 Arm band placed on left wrist. vc1 20:23 Patient has correct armband on for positive identification. Pulse ox on. NIBP on. vc1 21:03 Iman (daughter) [phone]. mw2 21:44 XRAY Chest (1 view) In Process Unspecified. EDMS 21:44 Shoulder Right (2 View) XRAY In Process Unspecified. EDMS 22:17 Luis A Anderson MD is Hospitalizing Provider. tyler 23:02 CT Traumagram (Head C Spine CAP W Con) In Process Unspecified. EDMS 07/10 00:13 COVID swab sent to lab. wm 00:15 SARS RAPID Sent. wm 01:58 No provider procedures requiring assistance completed. Patient admitted, IV remains in vc1 place. Administered Medications: 07/09 21:26 Drug: Pepcid (famotidine) 20 mg Route: IVP; Site: left antecubital; vc1 21:27 Follow up: Response: No adverse reaction vc1 21:26 Drug: Thiamine 100 mg Route: IV; Rate: bolus; Site: left antecubital; vc1 21:27 Follow up: IV Status: Completed infusion; IV Intake: 1ml vc1 21:26 Drug: NS 0.9% 500 ml Route: IV; Rate: bolus; Site: left antecubital; vc1 22:00 Follow up: IV Status: Completed infusion; IV Intake: 500ml vc1 21:39 Drug: Magnesium Sulfate 1 grams Route: IVPB; Infused Over: 1 hrs; Site: left vc1 antecubital; 22:40 Follow up: IV Status: Completed infusion; IV Intake: 100ml vc1 21:39 Drug: morphine 4 mg Route: IVP; Infused Over: 4 mins; Site: left antecubital; vc1 22:00 Follow up: Response: No adverse reaction; Marked relief of symptoms; Pain is decreased vc1 21:40 Drug: Zofran (Ondansetron) 4 mg Route: IVP; Site: left antecubital; vc1 22:00 Follow up: Response: No adverse reaction; Marked relief of symptoms vc1 23:43 Drug: Vitamin K1 (phytonadione) 10 mg Route: Sub-Q; Site: right lower abdomen; vc1 07/10 01:59 Follow up: Response: No adverse reaction vc1 07/09 23:44 Drug: Potassium Effervescent Tablet 50 mEq Route: PO; vc1 07/10 00:00 Follow up: Response: No adverse reaction vc1 07/09 23:44 Drug: NS 0.9% with KCl 20 mEq/L 1000 ml Route: IV; Rate: 125 ml/hr; Site: left vc1 antecubital; 07/10 01:59 Follow up: IV Status: Infusion continued upon admission vc1 07/09 23:44 Drug: Potassium Chloride 20 mEq Route: IV; Rate: per protocol; Site: left antecubital; vc1 07/10 01:59 Follow up: IV Status: Infusion continued upon admission vc1 00:13 Drug: Magnesium Sulfate 1 grams Route: IVPB; Infused Over: 1 hrs; Site: left forearm; vc1 01:13 Follow up: IV Status: Completed infusion; IV Intake: 100ml vc1 Medication: 07/09 20:23 VIS not applicable for this client. vc1 Intake: 21:27 IV: 1ml; Total: 1ml. vc1 22:00 IV: 500ml; Total: 501ml. vc1 22:40 IV: 100ml; Total: 601ml. vc1 07/10 01:13 IV: 100ml; Total: 701ml. vc1 Outcome: 07/09 22:18 Decision to Hospitalize by Provider. [facility] 07/10 01:58 Admitted to ER Hold. Please see [facility] for further documentation. vc1 Condition: good 16:43 Patient left the ED. bp Signatures: Dispatcher [employer] Sumit Benton MD MD cha Peltier, Brian, YASMIN RN bp Breanna King 2 Rosita Ayala Eloina Marroquin RN RN vc1 Corrections: (The following items were deleted from the chart) 07/09 23:25 22:30 Magnesium Sulfate 1 grams IVPB in left antecubital over 1 hrs vc1 vc1
[2022-07-09 22:41] LABS: Phosphorus 2.3 mg/dL (2.5-4.9)
[2022-07-09] MEDS ORDERED: POTASSIUM 25 MEQ EFFERV TAB ONE (23:38)
[2022-07-09] MEDS ORDERED: VITAMIN K (ADULT) 10 MG/ML ONE (23:38)
[2022-07-09] MEDS ORDERED: NS KCL 20MEQ 1,000 ML IV ONE (23:38)
[2022-07-09] MEDS ORDERED: KCL 20 MEQ/100 mL IVPB 100 ML IV ONE (23:39)
--- NOTE | 2022-07-10 00:21 | P.HP ---
Certification for Inpatient Patient admitted to: Inpatient With expected LOS: <2 Midnights Patient will require the following post-hospital care: None Practitioner: I am a practitioner with admitting privileges, knowledge of patient current condition, hospital course, and medical plan of care. Services: Services provided to patient in accordance with Admission requirements found in Title 42 Section 412.3 of the Code of Federal Regulations <Anastacia Stokes - Last Filed: 07/10/22 02:56> Patient History Date of Service: 07/10/22 Reason for admission: Falls, Hypokalemia, Hypomagnesmia, Cirrhosis History of Present Illness: Patient is a 62-year-old male with history of hypertension, alcoholism, and hidradenitis suppurativa who presented to the ED via EMS with complaints of shoulder pain. Patient fell at home yesterday and has had EMS come by 3 times before he agreed to let them take him to the hospital. He allowed them today because he was feeling so weak that he thought he could not make it down the stairs. His x-ray showed a right proximal humerus fracture. CT traumagram and chest x-ray negative. Labs significant for potassium 2.4, chloride 95, magnesium 1.3, T bili 5.4, phosphorus 2.3, WBC 11.7. CT did show small right pleural effusion with bibasilar atelectasis, cirrhotic liver, splenomegaly, and trace ascites. Patient admits to drinking a pint of whiskey a day. He was given fluids, thiamine, Pepcid, vitamin K, supplemental magnesium and potassium in the ED. His arm was put in a sling. ED provider wishes to admit patient for further evaluation and treatment. Home medications list reviewed: Yes (NA) - Past Medical/Surgical History Diabetic: No Past Medical History: Patient denies medical history -: Hidradenitis Suppurativa -: Hypertension -: Alcoholism Past Surgical History: Patient denies surgical history Psychosocial/ Personal History: Patient lives at home. He has a daughter. - Family History Family History: Reviewed- Non-Contributory - Social History Smoking Status: Current every day smoker Alcohol use: Yes CD- Drugs: No Caffeine use: Yes Place of Residence: Home <Anastacia Stokes - Last Filed: 07/10/22 02:56> Date of Service: 07/10/22 <Luis A Anderson - Last Filed: 07/10/22 17:18> Allergies No Known Allergies Allergy (Verified 01/27/16 10:07) Home Medications: Folic Acid 1 mg PO DAILY #30 tab 07/10/22 Hydrocodone 5/APAP 325 [[place] 5/325] 1 tab PO Q6H PRN 3 Days #10 tab 07/10/22 Magnesium Oxide [Mag 0X*] 400 mg PO BID 07/10/22 Thiamine HCl [Vitamin B-1*] 100 mg PO DAILY #30 tab 07/10/22 Review of Systems Musculoskeletal: Shoulder Pain, Arm Pain <Anastacia Stokes - Last Filed: 07/10/22 02:56> Physical Examination - Physical Exam General: Alert, In no apparent distress HEENT: Atraumatic, PERRLA, EOMI, Sclerae nonicteric Neck: Supple, 2+ carotid pulse no bruit, No LAD, Without JVD or thyroid abn ormality Respiratory: Clear to auscultation bilaterally, Normal air movement Cardiovascular: Regular rate/rhythm, Normal S1 S2 Gastrointestinal: Normal bowel sounds, No tenderness Musculoskeletal: Other (sling R arm) Integumentary: Other (nodule/abscess noted to lower abdomen ) Neurological: Normal speech, Normal strength at 5/5 x4 extr, Normal tone, Normal affect - Studies Laboratory Data (last 24 hrs) 07/09/22 22:16: Phosphorus Cancelled 07/09/22 21:25: PT 16.2 H, INR 1.46 07/09/22 21:25: WBC 11.70 H, Hgb 12.5 L, Hct 37.0 L, Plt Count 201 07/09/22 21:25: Sodium 138, Potassium 2.4 L*, BUN 4 L, Creatinine 0.65, Glucose 117 H, Phosphorus 2.3 L, Magnesium 1.3 L*, Total Bilirubin 5.4 H*, AST 60 H, ALT 20, Alkaline Phosphatase 139 H, Lipase 132 <Anastacia Stokes - Last Filed: 07/10/22 02:56> - Studies Laboratory Data (last 24 hrs) 07/09/22 22:16: Phosphorus Cancelled 07/09/22 21:25: PT 16.2 H, INR 1.46 07/09/22 21:25: WBC 11.70 H, Hgb 12.5 L, Hct 37.0 L, Plt Count 201 07/09/22 21:25: Sodium 138, Potassium 2.4 L*, BUN 4 L, Creatinine 0.65, Glucose 117 H, Phosphorus 2.3 L, Magnesium 1.3 L*, Total Bilirubin 5.4 H*, AST 60 H, ALT 20, Alkaline Phosphatase 139 H, Lipase 132 <Luis A Anderson - Last Filed: 07/10/22 17:18> Assessment and Plan - Problems (Diagnosis) (1) Alcoholism Status: Chronic (2) Recurrent falls Status: Acute (3) Proximal humerus fracture Status: Acute Qualifiers: Encounter type: initial encounter Fracture type: closed Fracture morphology: other fracture Fracture alignment: nondisplaced Laterality: right Qualified Code(s): S42.294A - Other nondisplaced fracture of upper end of right humerus, initial encounter for closed fracture (4) Hypokalemia Status: Acute (5) Hypomagnesemia Status: Acute (6) Hidradenitis suppurativa Status: Chronic (7) Hypertension Status: Chronic (8) Cirrhosis of liver Status: Chronic Qualifiers: Hepatic cirrhosis type: alcoholic cirrhosis Ascites presence: with ascites Qualified Code(s): K70.31 - Alcoholic cirrhosis of liver with ascites - Plan -Received 2 grams IV magnesium, 80 meq IV KCl, and 50 meq oral potassium in ED. Recheck electrolytes in morning and replete per protocol. -Right arm in sling. Fracture is likely nonsurgical. Outpatient orthopedic follow up. Tramadol PRN pain. -Tbili and liver enzymes elevated secondary to chronic alcohol abuse. CT showing cirrhosis with ascites. -PT 16.2. INR 1.46. Given 10 mg Vitamin K in ED. -Patient has hidradenitis suppurativa. Abscess with surrounding cellulitus noted to lower abdomen. Doxycycline ordered BID. -Daily thiamine and folic acid. -Ammonia, thiamine, folate, B12, lipid, A1C, and TSH ordered for morning. -Educated patient on alcohol cessation. -Physical therapy consult as patient has been very weak and had falls (although falls could be secondary to alcohol intoxication). -Reconcile and continue home medications. -Lovenox for VTE prophylaxis -Full code Discharge Plan: Home Plan to discharge in: 48 Hours - Advance Directives Does patient have a Living Will: No Does patient have a Durable POA for Healthcare: No - Code Status/Comfort Care Code Status Assessed: Yes (Full) Critical Care: No Time Spent Managing Pts Care (In Minutes): 50 <Anastacia Stokes - Last Filed: 07/10/22 02:56> Physician Review: Patient Assessed, Agree with Above Assessment and Plan <Luis A Anderson - Last Filed: 07/10/22 17:18>
[2022-07-10 01:00] LABS: SARS-CoV-2 Antigen Rapid Res Negative (Negative)
[2022-07-10] MEDS: NS KCL 20MEQ 20 MEQ/1,000 ML BAG IV SCH ×2 (02:25→12:25)
[2022-07-10] MEDS: TRAMADOL HCL 50 MG TAB PO PRN ×2 (02:39→09:00)
[2022-07-10 03:34] VITALS: BMI 25.1
[2022-07-10] MEDS ORDERED: ONDANSETRON 4 MG/2 ML VIAL IV PRN (04:00)
[2022-07-10 04:55] LABS: Absolute Lymphocytes (CBC) 1.3 K/uL (0.7-4.9); Hematocrit 32.7 % (39.6-49.0); Lymphocytes % 15.7 % (15.3-44.8); MCV 116.2 fL (80-100); MPV 8.2 fL (7.6-11.3); RBC Red Blood Cell Count 2.81 M/uL (4.33-5.43)
[2022-07-10 05:26] LABS: Blood Morphology Comment NOTED (NOT SEEN); Macrocytosis 3+; Platelet Estimate ADEQ; Target Cells 1+; White Blood Cell Scan OK (OK)
[2022-07-10] MEDS ORDERED: chlordiazePOXIDE HCl 5 MG CAP PO PRN (05:27)
[2022-07-10 06:11] LABS: ALT/SGPT 18 U/L (12-78); AST/SGOT 48 U/L (15-37); Albumin 1.7 g/dL (3.4-5.0); Alkaline Phosphatase 116 U/L (45-117); BUN Blood Urea Nitrogen < 3 mg/dL (7-18); Bicarbonate 35 mmol/L (21-32); Bilirubin Total 3.7 mg/dL (0.2-1.0); Folic Acid, (Folate) 1.5 ng/mL (3.1-17.5); Glomerular Filtration Rate 118 ml/min (=/>90); Glucose Level 125 mg/dL (74-106); HDL Cholesterol 17 mg/dL (40-60); LDL Cholesterol, Calculated 21 mg/dL (<130); Magnesium 1.9 mg/dL (1.8-2.4); Protein, Total 6.2 g/dL (6.4-8.2); Sodium Level 139 mmol/L (136-145)
[2022-07-10 06:12] LABS: Potassium 2.8 mmol/L (3.5-5.1)
[2022-07-10] MEDS ORDERED: KCL 20 MEQ/100 mL IVPB 100 ML IV ONE ×2 (06:32→09:24)
[2022-07-10] MEDS: KCL 20 MEQ/100 mL IVPB 20 MEQ/100 ML BAG IV SCH ×2 (06:41→09:00)
--- NOTE | 2022-07-10 08:13 | EKG ---
Test Date: 2022-07-09 Test Time: 21:53:43 Property Site Manager: FLAVIA MEASUREMENT RESULTS: Intervals: Rate: 76 MA: 160 QRSD: 86 QT: 304 QTc: 342 [place]: P: 2 MA: 160 QRS: -23 T: 128 INTERPRETIVE STATEMENTS: Sinus rhythm with sinus arrhythmia with frequent and consecutive premature ventricular complexes Nonspecific ST and T wave abnormality Abnormal ECG Compared to ECG 04/13/2020 17:43:42 ST (T wave) deviation now present Myocardial infarct finding no longer present Electronically Signed On 07-10-22 08:11:59 CDT by Jose Barros
[2022-07-10] MEDS ORDERED: DOXYCYCLINE 100 MG CAP PO SCH (09:00)
[2022-07-10] MEDS ORDERED: FOLIC ACID 1 MG TABLET PO SCH (09:00)
[2022-07-10] MEDS ORDERED: THIAMINE HCL 100 MG TABLET PO SCH (09:00)
[2022-07-10] MEDS ORDERED: ENOXAPARIN 40 MG/0.4 ML SQ SCH (09:00)
[2022-07-10] MEDS ORDERED: FOLIC ACID 1 MG TABLET ONE (09:22)
[2022-07-10] MEDS ORDERED: TRAMADOL HCL 50 MG TAB ONE ×2 (09:23→09:46)
[2022-07-10] MEDS ORDERED: DOXYCYCLINE 100 MG CAP PO ONE (09:23)
[2022-07-10] MEDS ORDERED: THIAMINE HCL 100 MG TABLET ONE (09:23)
[2022-07-10] MEDS ORDERED: ENOXAPARIN 40 MG/0.4 ML SQ ONE (09:24)
--- NOTE | 2022-07-10 14:09 | RAD REPORT ---
EXAM DESCRIPTION: CT - Head C Spine Cap Oscar Saravia - 07/10/2022 6:40 am CLINICAL HISTORY: The patient is 62 years old and is Male; fall TECHNIQUE: Axial computed tomography images of the head/brain and cervical spine with intravenous co ntrast. Sagittal and coronal reformatted images were created and reviewed. This CT exam was perfo rmed using one or more of the following dose reduction techniques: automated exposure control, adju stment of the mA and/or kV according to patient size, and/or use of iterative reconstruction techniqu e. COMPARISON: No relevant prior studies available. FINDINGS: BRAIN: Unremarkable. No hemorrhage. No edema. Normal enhancement. VENTRICLES: Unremarkable. No ventriculomegaly. SKULL: No acute fracture. SINUSES: Unremarkable as visualized. No acute sinusitis. MASTOID AIR CELLS: Unremarkable as visualized. No mastoid effusion. VERTEBRAE: The vertebral body heights and alignment are maintained. No acute fracture. DISCS/SPINAL CANAL/NEURAL FORAMINA: Minimal intervertebral disc space narrowing with anterior ost eophyte formation from C5 through C7 is present. There is no significant canal stenosis or neural for aminal narrowing. SOFT TISSUES: The soft tissues are normal. LUNG APICES: Unremarkable as visualized. IMPRESSION: 1. No acute intracranial findings. 2. Spondylosis of the cervical spine without acute findings. EXAM DESCRIPTION: CT Chest, Abdomen and Pelvis With Intravenous Contrast CLINICAL HISTORY: The patient is 62 years old and is Male; fall TECHNIQUE: Axial computed tomography images of the chest, abdomen and pelvis with intravenous contra st. Sagittal and coronal reformatted images were created and reviewed. This CT exam was performed using one or more of the following dose reduction techniques: automated exposure control, adjustme nt of the mA and/or kV according to patient size, and/or use of iterative reconstruction technique. COMPARISON: No relevant prior studies available. FINDINGS: CHEST: LUNGS: Dependent densities in the lung bases are noted. PLEURAL SPACE: Small right pleural effusion is present. No pneumothorax. HEART: No cardiomegaly. No pericardial effusion. ABDOMEN: LIVER: The liver is enlarged with a slightly nodular contour. GALLBLADDER AND BILE DUCTS: Large calcified gallstone is present within the gallbladder. There is no ductal dilatation. PANCREAS: Fatty infiltration of pancreas is noted. SPLEEN: The spleen is enlarged with splenic capsular calcification. ADRENALS: Unremarkable. No mass. KIDNEYS AND URETERS: Unremarkable. The kidneys enhance symmetrically. No obstructing renal or ure teral calculus is seen. No hydronephrosis or hydroureter. No perinephric fluid or stranding. STOMACH AND BOWEL: The stomach is decompressed. Small bowel is relatively normal in caliber. Stoo l is present throughout colon. Scattered colonic diverticula are noted without surrounding inflammati on. There is no mucosal thickening or evidence of obstruction. PELVIS: APPENDIX: The appendix is normal in caliber without surrounding inflammation. BLADDER: Unremarkable. No mass. REPRODUCTIVE: Unremarkable as visualized. CHEST, ABDOMEN and PELVIS: INTRAPERITONEAL SPACE: Trace ascites is present throughout the abdomen and pelvis. No free air. BONES/JOINTS: Comminuted fracture of the proximal right humeral diaphysis is present. Several h ealed left-sided rib fractures are present. Few healed right-sided rib fractures are also present. No other acute fracture of the visualized axial and appendicular skeleton is seen. The vertebral body h eights and alignment are maintained. There is no acute fracture of the thoracic or lumbar spine. SOFT TISSUES: Edema of the soft tissues of the right shoulder is noted. VASCULATURE: Atherosclerosis of the vasculature is present. Atherosclerosis of the vasculature is present. A few gastric varices are noted. No aortic aneurysm. LYMPH NODES: Unremarkable. No enlarged lymph nodes. IMPRESSION: 1. No evidence of solid organ injury on this contrasted CT of the chest, abdomen, and pelvis. 2. Acute fracture of the proximal right humerus is partially visualized. No other traumatic bony fi ndings on this contrasted CT of the chest, abdomen, and pelvis. 3. Small right pleural effusion with bibasilar atelectasis. 4. Cirrhotic liver, splenomegaly, trace ascites. 5. Cholelithiasis without CT evidence to suggest cholecystitis. Electronically signed by: Kate Andrew MD 07/09/2022 11:34 PM CDT Due to temporary technical issues with the PACS/Fluency reporting system, reports are being signed by the in house radiologists without review as a courtesy to insure prompt reporting. The interpreting radiologist is fully responsible for the content of the report.
[2022-07-10] MEDS ORDERED: NS KCL 20MEQ 1,000 ML IV ONE (14:17)
[2022-07-10 14:29] LABS: Bicarbonate 35 mmol/L (21-32); Glomerular Filtration Rate 120 ml/min (=/>90); Glucose Level 109 mg/dL (74-106); Magnesium 1.9 mg/dL (1.8-2.4); Potassium 3.3 mmol/L (3.5-5.1); Sodium Level 138 mmol/L (136-145)
[2022-07-10 14:30] LABS: BUN Blood Urea Nitrogen < 3 mg/dL (7-18)
[2022-07-10] MEDS ORDERED: POTASSIUM CL SA 10 MEQ TAB PO ONE ×2 (15:32→15:46)
--- NOTE | 2022-07-10 15:55 | P.DS ---
Admission Date: 07/10/22 Discharge Date: 07/10/22 Disposition: ROUTINE DISCHARGE Discharge Condition: GOOD Reason for Admission: Falls, Hypokalemia, Hypomagnesmia, Cirrhosis Hospital Course: DIAGNOSES: # Traumatic Ground-Level Fall complicated by Acute Proximal Right Humeral Communited Fracture # Alcoholic Cirrhosis (MELD Score 16) # Rhinophyma # Hidranitis Suppurativa # Hypertension # Hypokalemia # Hypomagnesemia # Subclinical Hypothyroidism # Several Healed Left- and Right-Sided Rib Fractures HOSPITAL COURSE: Mr. Graham Day is a 62 year old male with a past medical history significant for alcoholic cirrhosis, rhinophyma, and hidradenitis suppurativa who was admitted to the [facility] on 07/10/2022 for a traumatic groundlevel fall. He was admitted to the Medicine service for further evaluation. Upon review of his laboratory studies, he was found to have significant hypokalemia and hypomagnesemia. Additionally, he was noted to have a proximal right humeral fracture, which he attributes directly to his fall that occurred several days ago while he was intoxicated. Although he did have hyperbilirubinemia, he never exhibited any abdominal pain, pruritis, nausea, vomiting, or diarrhea. He stated that he does not wish to stay in the hospital today and would like to be discharged today if possible. I encouraged that he stay in the hospital while we replace his electrolytes and he agreed. We have given him magnesium and potassium replacements, with improvement in his levels. In regards to his fractured humerus, we do not currently have a Orthopedic Surgeon accounting manager assistant controller. I did curbside consult one of our orthopedic surgeons, who stated that these types of fractures are typically handled as an outpatient. His arm was placed in a sling with significant improvement of his symptoms. I have given him the information of a local orthopedic surgeon, Dr. Hernandez, and advised that he schedule a follow-up appointment with him in 3-5 days. On 07/10/2022, he was seen on rounds and deemed medically stable for discharge. He was discharged with instructions to schedule follow-up appointments with his PCP (NORMAN Muse) in 3-5 days and with Orthopedic Surgery (Dr. Hernandez) in 3-5 days. He was provided prescriptions for folic acid, thiamine, and PRN hydrocodoneacetaminophen. He was given the opportunity to ask questions and reported no further questions. Furthermore, all questions were answered to the best of my ability. I performed a [place] PDMP review on Mr. Day. It does not appear that he has had any controlled substance prescriptions in the last year. His calculated opioid overdose risk score is 0. Today, I personally spent 25 minutes on his case, of which greater than 50% of the time was spent in patient education, counseling, and coordination of care as described above. Vital Signs/Physical Exam: Temp Pulse Resp BP Pulse Ox 97.1 F 73 19 139/76 97 07/10/22 04:00 07/10/22 12:00 07/10/22 12:00 07/10/22 12:00 07/10/22 12:00 General: Alert, In no apparent distress, Oriented x3 HEENT: Atraumatic, PERRLA, Mucous membr. moist/pink, Other (significant rhinophyma), EOMI, Sclerae nonicteric Neck: Supple, JVD not distended Respiratory: Clear to auscultation bilaterally, Normal air movement Cardiovascular: No edema, Regular rate/rhythm, Normal S1 S2, No gallops, No rubs, No murmurs Gastrointestinal: Normal bowel sounds, Soft and benign, Non-distended, No tenderness, No rebound, No guarding Musculoskeletal: No clubbing Integumentary: No rashes Neurological: Normal speech, Cranial nerves 3-12 intact, Normal affect Laboratory Data at Discharge: WBC 8.30 K/uL (4.3-10.9) D 07/10/22 04:37 Hgb 11.5 g/dL (13.6-17.9) L 07/10/22 04:37 Hct 32.7 % (39.6-49.0) L 07/10/22 04:37 Plt Count 159 K/uL (152-406) D 07/10/22 04:37 PT 16.2 SECONDS (9.5-12.5) H 07/09/22 21:25 INR 1.46 07/09/22 21:25 Sodium 138 mmol/L (136-145) 07/10/22 14:06 Potassium 3.3 mmol/L (3.5-5.1) L 07/10/22 14:06 BUN < 3 mg/dL (7-18) L 07/10/22 14:06 Creatinine 0.43 mg/dL (0.55-1.3) L 07/10/22 14:06 Glucose 109 mg/dL (74-106) H 07/10/22 14:06 Phosphorus Cancelled 07/09/22 22:16 Magnesium 1.9 mg/dL (1.8-2.4) 07/10/22 14:06 Total Bilirubin 3.7 mg/dL (0.2-1.0) H 07/10/22 04:37 AST 48 U/L (15-37) H 07/10/22 04:37 ALT 18 U/L (12-78) 07/10/22 04:37 Alkaline Phosphatase 116 U/L (45-117) 07/10/22 04:37 Triglycerides 59 mg/dL (<150) 07/10/22 04:37 Cholesterol < 50 mg/dL (<200) 07/10/22 04:37 HDL Cholesterol 17 mg/dL (40-60) L 07/10/22 04:37 Cholesterol/HDL Ratio 2.94 07/10/22 04:37 Lipase 132 U/L (73-393) 07/09/22 21:25 Home Medications: Folic Acid 1 mg PO DAILY #30 tab 07/10/22 Hydrocodone 5/APAP 325 [[place] 5/325] 1 tab PO Q6H PRN 3 Days #10 tab 07/10/22 Magnesium Oxide [Mag 0X*] 400 mg PO BID 07/10/22 Thiamine HCl [Vitamin B-1*] 100 mg PO DAILY #30 tab 07/10/22 New Medications: Folic Acid 1 mg PO DAILY #30 tab Hydrocodone 5/APAP 325 [[place] 5/325] 1 tab PO Q6H PRN 3 Days #10 tab PRN Reason: Pain Scale 8-10 (Severe) Thiamine HCl [Vitamin B-1*] 100 mg PO DAILY #30 tab Physician Discharge Instructions: 1. Please schedule a follow-up appointment with your PCP (NORMAN Muse) in 3-5 days 2. Please schedule a follow-up appointment with Orthopedic Surgery (Dr. Bergeron) within 1 week Diet: AHA Activity: Fall precautions Followup: Bhakti Muse NP [ALLIED HEALTH PROFESSIONAL] - Abhilash Hernandez MD [ACTIVE - CAN ADMIT] - Time spent managing pt's care (in minutes): 25
[2022-07-10 18:15] VITALS: TEMP 97.7
[2022-07-10 18:24] VITALS: BP 132/84; O2SAT 96
== END 2022-07-10 16:19 | disposition home or self-care (01) | DRG 641 ==
LOC: ER 20:10 → ERHOLD 07-10 00:42
PROVIDERS: ADMIT Internal Medicine; ATTEND Internal Medicine
DX: E87.6 Hypokalemia (principal); S42.201A Unspecified fracture of upper end of right humerus, initial encounter for closed fracture; L03.311 Cellulitis of abdominal wall; L71.1 Rhinophyma; L73.2 Hidradenitis suppurativa; I10 Essential (primary) hypertension; E83.42 Hypomagnesemia; E03.8 Other specified hypothyroidism; K70.31 Alcoholic cirrhosis of liver with ascites; W18.30XA Fall on same level, unspecified, initial encounter; Y92.009 Unspecified place in unspecified non-institutional (private) residence as the place of occurrence of the external cause; Z20.822 Contact with and (suspected) exposure to COVID-19
CPT/HCPCS: 36415; 70450; 71045; 71260; 72125; 74177; 80048; 80053; 80061; 80076; 81003; 82140; 82607; 82746; 83036; 83690; 83735; 83880; 84100; 84439; 84443; 84484; 85025; 85610; 87811; 93005; 96372; 97116; 97161; 99285; J1650; J2405; J3411; J3430; J3475; J3480; J7040; Q9967

== ENCOUNTER 2024-05-17 12:24 | Emergency (ER) | payer OTHER, SELFPAY ==
[2024-05-17] MEDS ORDERED: THIAMINE 200 MG/2 ML INJ ONE (13:19)
[2024-05-17] MEDS ORDERED: MULTIVITAMINS 10 ML VIAL (INJ) IV ONE ×2 (13:20→13:22)
[2024-05-17] MEDS ORDERED: FOLIC ACID 5 MG/ML VIAL ONE (13:20)
[2024-05-17] MEDS ORDERED: NA CHLORIDE 0.9% 1,000 ML ONE (13:22)
[2024-05-17 13:28] LABS: Absolute Basophils 0.1 K/uL (0-0.5); Absolute Eosinophils 0.3 K/uL (0-0.5); Absolute Lymphocytes (CBC) 2.5 K/uL (0.7-4.9); Absolute Monocytes 0.4 K/uL (0.1-1.3); Absolute Neutrophil 1.9 K/uL (1.8-8.0); Basophils % 1.2 % (0-1.3); Eosinophils % 5.8 % (0-4.4); Hematocrit 43.5 % (39.6-49.0); Hemoglobin 14.8 g/dL (13.6-17.9); Lymphocytes % 47.3 % (15.3-44.8); MCH 38.9 pg (27.0-35.0); MCV 114.3 fL (80-100); MPV 8.2 fL (7.6-11.3); Monocytes % 8.5 % (3.3-12.3); Neutrophils % 37.2 % (41.7-73.7); Platelets 194 thou/uL (152-406); RBC Red Blood Cell Count 3.81 M/uL (4.33-5.43); Red Cell Distribution Width 14.6 % (12.1-15.2)
[2024-05-17 13:47] LABS: ALT/SGPT 20 U/L (16-61); Albumin 2.4 g/dL (3.4-5.0); Albumin/Globulin Ratio 0.4 (1.1-1.8); Alkaline Phosphatase 166 U/L (45-117); Anion Gap 12.8 mEq/L (5.0-15.0); Anisocytosis SLIGHT; BUN Blood Urea Nitrogen 4 mg/dL (7-18); Bicarbonate 26 mEq/L (21-32); Bilirubin Direct 0.8 mg/dL (0-0.2); Bilirubin Indirect, Calculated 0.5 mg/dL (0.2-0.8); Bilirubin Total 1.3 mg/dL (0.2-1.0); Blood Morphology Comment NOTED (NOT SEEN); Globulin 5.9 g/dL (2.3-3.5); Glomerular Filtration Rate 105 ml/min (=/>90); Glucose Level 111 mg/dL (74-106); Macrocytosis 2+; Platelet Estimate ADEQ; Protein, Total 8.3 g/dL (6.4-8.2); Sodium Level 137 mEq/L (136-145); White Blood Cell Scan OK (OK)
[2024-05-17 13:48] LABS: AST/SGOT 58 U/L (15-37); Potassium 2.8 mEq/L (3.5-5.1)
[2024-05-17 14:03] LABS: PT Prothrombin Time 13.4 SECONDS (9.4-12.5); PTT, Activated Partial Thromb 35.3 SECONDS (24.3-36.9); Protime INR 1.23
--- NOTE | 2024-05-17 14:49 | EDPHYS ---
Physician Documentation [facility] Name: Graham Day Age: 64 yrs Sex: Male : 1960 Arrival Date: 05/17/2024 Time: 12:24 Bed 6 Private MD: ED Physician Joe Boston HPI: 05/17 14:46 This 64 yrs old Male presents to ER via Wheelchair with complaints of Altered ec2 Mental Status. 14:46 Patient arrives today intoxicated, reportedly is here for social reasons, states that ec2 he is unable to check into his hotel until 3 PM. Also with significant alcohol abuse history.. Historical: - Allergies: 12:32 No Known Allergies; ph - PMHx: 12:32 etoh abuse; Hydradentitis; Hypertension; ph - Immunization history:: Adult Immunizations unknown. - Infectious Disease History:: Denies. - Social history:: Smoking status: Patient reports the use of cigarette tobacco products, smokes one pack cigarettes per day. Patient uses alcohol, on a daily basis. Patient/guardian denies using street drugs. ROS: 14:46 Constitutional: as per hpi ec2 Exam: 14:46 Constitutional: GEN: NAD Head: atraumatic Eyes: EOMI Ears: External ears are ec2 normal. CV: regular rate LUNGS: no respiratory distress ABD: non-distended SKIN: no evidence of rashes MSK: no evidence of trauma NEURO: moves all extremities equally Vital Signs: 12:33 BP 138 / 85; Pulse 89; Resp 18; Pulse Ox 93% on R/A; Weight 79.38 kg; Height 5 ft. 11 ph in. ; 13:10 BP 99 / 70; Pulse 80; Resp 18; Pulse Ox 94% on R/A; nj1 14:12 BP 103 / 54; Pulse 76; Resp 18; Pulse Ox 98% ; nj1 12:33 Body Mass Index 24.41 (79.38 kg, 180.34 cm) ph MDM: 13:17 Patient medically screened. ec2 14:48 Data reviewed: vital signs. ED course: Patient arrives today for social reasons. ec2 Examination remarkable for well-appearing nontoxic individual is otherwise in no acute distress with a reassuring examination. Patient is clinically intoxicated however well-appearing and has no acute complaints. His workup is remarkable for alcohol elevated at 309, metabolic profile shows slight hypokalemia with potassium of 2.8. CBC is reassuring. LFTs with some elevation. On reassessment patient is well-appearing in no acute distress. Patient will be discharged in the care of the left 1. . 05/17 12:50 Order name: Ethanol; Complete Time: 14:47 ec2 05/17 12:50 Order name: Acetaminophen; Complete Time: 14:47 ec2 05/17 12:50 Order name: Basic Metabolic Panel; Complete Time: 14:47 ec2 05/17 12:50 Order name: CBC with Diff; Complete Time: 14:47 ec2 05/17 12:50 Order name: Hepatic Function; Complete Time: 14:47 ec2 05/17 12:50 Order name: PT-INR; Complete Time: 14:47 ec2 05/17 12:50 Order name: Ptt, Activated; Complete Time: 14:47 ec2 05/17 12:50 Order name: Salicylate; Complete Time: 14:47 ec2 05/17 12:50 Order name: Urine Drug Screen ec2 05/17 13:48 Order name: CBC Smear Scan; Complete Time: 14:47 EDMS 05/17 12:50 Order name: EKG - Nurse/Tech; Complete Time: 13:50 ec2 05/17 12:50 Order name: IV Saline Lock; Complete Time: 13:22 ec2 05/17 12:50 Order name: Labs collected and sent; Complete Time: 13:22 ec2 Administered Medications: 13:28 Drug: Banana Bag - (Multivitamin IV 1 amp, NS 0.9% IV 1000 ml, Thiamine IV 100 mg, nj1 foLIC Acid IVPB 1 mg) IV at calculated rate once Route: IV; Rate: calculated rate; Site: right antecubital; 14:50 Follow up: Response: No adverse reaction; IV Status: Completed infusion; IV Intake: nj1 1000ml Disposition Summary: 05/17/24 14:48 Discharge Ordered Notes: Location: Home ec2 Condition: Stable ec2 Diagnosis - Alcohol abuse with intoxication ec2 Followup: ec2 - With: Private Physician - When: - Reason: Re-evaluation by your physician Discharge Instructions: - Discharge Summary Sheet ec2 - Alcohol Intoxication, [id number] ec2 Forms: - Medication Reconciliation Form ec2 - Antibiotic Education ec2 - Prescription Opioid Use ec2 - Patient Portal Instructions ec2 - Leadership Thank You Letter ec2 Signatures: Dispatcher [employer] EDMS Jade Mason, RN RN Anushka Angel, RN RN Zainab Jack RN RN nj1 Joe Boston MD MD ec2 Corrections: (The following items were deleted from the chart) 12:51 12:51 ACETAMINOPHEN+C.LAB.BRZ ordered. EDMS EDMS 12:51 12:51 BASIC METABOLIC PANEL+C.LAB.BRZ ordered. EDMS EDMS 12:51 12:51 CBC+H.LAB.BRZ ordered. EDMS EDMS 12:51 12:51 HEPATIC FUNCTION+C.LAB.BRZ ordered. EDMS EDMS 12:51 12:51 PROTIME (+INR)+COAG.LAB.BRZ ordered. EDMS EDMS 12:51 12:51 PTT, ACTIVATED+COAG.LAB.BRZ ordered. EDMS EDMS 12:51 12:51 SALICYLATE+C.LAB.BRZ ordered. EDMS EDMS 12:51 12:51 URINE DRUG SCREEN+UC.LAB.BRZ ordered. EDMS EDMS 13:06 12:50 Suicide Screening ([place]) ordered. ec2 nj1
--- NOTE | 2024-05-17 14:49 | ER ---
Nurse's Notes [facility] Name: Graham Day Age: 64 yrs Sex: Male : 1960 Arrival Date: 05/17/2024 Time: 12:24 Bed 6 Private MD: Diagnosis: Alcohol abuse with intoxication Presentation: 05/17 12:33 Chief complaint: Patient states: Pt c/o back pain, generalized weakness, admits to drinking 1/2 pint of whiskey today, is a daily drinker. Coronavirus screen: Vaccine status: Patient reports being unvaccinated. Ebola Screen: No symptoms or risks identified at this time. Initial Sepsis Screen: Does the patient meet any 2 criteria? No. Patient's initial sepsis screen is negative. Does the patient have a suspected source of infection? No. Patient's initial sepsis screen is negative. Risk Assessment: Do you want to hurt yourself or someone else? Patient reports no desire to harm self or others. Onset of symptoms was May 17, 2024. 12:33 Method Of Arrival: Wheelchair ph 12:37 Acuity: ANA 2 ph Historical: - Allergies: 12:32 No Known Allergies; ph - PMHx: 12:32 etoh abuse; Hydradentitis; Hypertension; ph - Immunization history:: Adult Immunizations unknown. - Infectious Disease History:: Denies. - Social history:: Smoking status: Patient reports the use of cigarette tobacco products, smokes one pack cigarettes per day. Patient uses alcohol, on a daily basis. Patient/guardian denies using street drugs. Screenin:10 [facility] ED Fall Risk Assessment (Adult) History of falling in the last 3 months, nj1 including since admission No falls in past 3 months (0 pts) Confusion or Disorientation No (0 pts) Intoxicated or Sedated Yes (3 pts) Impaired Gait No (0 pts) Mobility Assist Device Used No (0 pt) Altered Elimination No (0 pt) Score/Fall Risk Level 3 or more points = High Risk Oriented to surroundings, Maintained a safe environment, Educated pt \T\ family on fall prevention, incl call for assistance when getting out of bed, Hourly rounding (assess needs \T\ fall precautionary measures) done, Remained with patient while ambulating, Utilized family, sitter, or virtual devulcanizer operator as indicated. 13:10 Abuse screen: Denies threats or abuse. Denies injuries from another. Nutritional nj1 screening: No deficits noted. Tuberculosis screening: No symptoms or risk factors identified. Assessment: 13:10 General: Appears in no apparent distress. Behavior is cooperative, restless, Reports nj1 Drinking alcohol. 13:10 Pain: Denies pain. Neuro: Level of Consciousness is awake, alert, Oriented to person, nj1 place, Moves all extremities. Speech is slurred. Cardiovascular: Patient's skin is warm and dry. Respiratory: Airway is patent Respiratory effort is even, unlabored. 14:13 Reassessment: Patient appears in no apparent distress at this time. No changes from nj1 previously documented assessment. Vital Signs: 12:33 BP 138 / 85; Pulse 89; Resp 18; Pulse Ox 93% on R/A; Weight 79.38 kg; Height 5 ft. 11 ph in. ; 13:10 BP 99 / 70; Pulse 80; Resp 18; Pulse Ox 94% on R/A; nj1 14:12 BP 103 / 54; Pulse 76; Resp 18; Pulse Ox 98% ; nj1 12:33 Body Mass Index 24.41 (79.38 kg, 180.34 cm) ph ED Course: 12:29 Patient arrived in ED. im 12:36 Arm band placed on right wrist. ph 12:37 Triage completed. ph 12:47 Zainab Jack, RN is Primary Nurse. nj1 12:49 Joe Boston MD is Attending Physician. ec2 13:10 Patient has correct armband on for positive identification. Bed in low position. Call nj1 light in reach. Side rails up X 1. 13:10 Provided Education on: call light, fall precautions. nj1 13:24 Inserted saline lock: 20 gauge in right antecubital area, using aseptic technique. kj2 Blood collected. 13:50 EKG done, by ED staff, reviewed by Joe Boston MD. nj1 14:50 No provider procedures requiring assistance completed. nj1 14:50 IV discontinued, intact, bleeding controlled, Pressure dressing applied. nj1 Administered Medications: 13:28 Drug: Banana Bag - (Multivitamin IV 1 amp, NS 0.9% IV 1000 ml, Thiamine IV 100 mg, nj1 foLIC Acid IVPB 1 mg) IV at calculated rate once Route: IV; Rate: calculated rate; Site: right antecubital; 14:50 Follow up: Response: No adverse reaction; IV Status: Completed infusion; IV Intake: nj1 1000ml Medication: 14:50 VIS not applicable for this client. nj1 Intake: 14:50 IV: 1000ml; Total: 1000ml. nj1 Outcome: 14:48 Discharge ordered by . ec2 14:50 Discharged to home via wheelchair, with significant other, nj1 14:50 Condition: stable 14:50 Discharge instructions given to patient, family, Instructed on discharge instructions, follow up and referral plans. safety practices, Demonstrated understanding of instructions, follow-up care, 14:55 Patient left the ED. nj1 Signatures: Jade Mason RN RN ph Zainab Jack RN RN nj1 Linda Colon Edwin, MD MD ec2 Keely Drummond RN RN kj2 Corrections: (The following items were deleted from the chart) 12:37 12:33 Pulse 89bpm; Resp 18bpm; Pulse Ox 93% RA; 79.38 kg; Height 5 ft. 11 in.; BMI: ph 24.4; ph
[2024-05-17 15:18] LABS: Barbiturates NEGATIVE (NEGATIVE); Benzodiazepines NEGATIVE (NEGATIVE); Cocaine NEGATIVE (NEGATIVE); METHAMPHETAM NEGATIVE (NEGATIVE); Methadone NEGATIVE (NEGATIVE); Opiates NEGATIVE (NEGATIVE); Phencyclidine NEGATIVE (NEGATIVE); THC Cannibis NEGATIVE (NEGATIVE)
[2024-05-17 15:33] VITALS: BP 103/54; O2SAT 98
--- NOTE | 2024-05-20 12:18 | EKG ---
Test Date: 2024-05-17 Test Time: 13:43:03 [place]: DOROTHY MEASUREMENT RESULTS: Intervals: Rate: 71 MT: 216 QRSD: 100 QT: 422 QTc: 458 [place]: P: 85 MT: 216 QRS: 15 T: 172 INTERPRETIVE STATEMENTS: Poor data quality, interpretation may be adversely affected Sinus rhythm with 1st degree AV block Septal infarct, age undetermined ST & T wave abnormality, consider inferior ischemia Abnormal ECG Compared to ECG 07/09/2022 21:53:43 First degree AV block now present Myocardial infarct finding now present Possible ischemia now present Sinus arrhythmia no longer present Ventricular premature complex(es) no longer present ST (T wave) deviation still present Electronically Signed On 05-20-24 12:12:51 CDT by Abdoulaye Mitchell
== END 2024-05-17 14:55 | disposition home or self-care (01) ==
LOC: ER 12:24
DX: F10.129 Alcohol abuse with intoxication, unspecified (principal); F17.210 Nicotine dependence, cigarettes, uncomplicated
CPT/HCPCS: 96365; 93005; 85025; 80048; 36415; 85610; 80076; 85730; 80307; 99284; 80143; 80179; 82077; J3411; J7030

== ENCOUNTER 2024-10-31 10:11 | Inpatient (IN) | payer OTHER ==
--- OUTSIDE RECORDS SUMMARY | 2024-10-31 10:14 | XMS REPORT | Continuity of Care Document ---
Author Name Unknown Address [address] [facility] [address] [place] [address] 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 with other complicati ons Problem [facility] [id number] Alcoholism Problem Commo n [facility] [id number] Closed fracture of proximal end of right humerus, unspecifie d fracture morphology , initial encounter Problem [facility] [id number] Alcoholic cirrhosis of liver without ascites Problem [facility] [id number] Acquired hypothyroi dism Problem [facility] Social History Social Habit Start Date Stop Date Quantity Comments Source History of Tobacco Use Current Smoker [facility] Sex Assigned At [facility] Smoking Status Start Date Stop Date Source Current Smoker 2022-11-08 00:00:00 [facility] Medications Ordered Medication Name Filled Medication Name Start Date Stop Date Current Medication? Ordering Clinician Indication Dosage Frequency Signature (SIG) Comments Components Source Levothyroxi ne Sodium 25 MCG Levothyroxi ne Sodium 25 MCG 2021-08-10 00:00: 00 No QD Levothyrox ine Sodium 25 MCG Levothyroxi ne Sodium 25 MCG Levothyroxi ne Sodium 25 MCG 2021-0 08-10 00:00: 00 No QD Levothyrox ine Sodium 25 MCG Levothyroxi ne Sodium 25 MCG Levothyroxi ne Sodium 25 MCG 2021-0 08-10 00:00: 00 No QD Levothyrox ine Sodium 25 MCG Amlodipine Besylate Amlodipine Besylate Yes Bhakti [place] 1 tablet [facility] Lisinopril Lisinopril Yes Bhakti [place] 1 tablet [facility] Magnesium 300 MG Magnesium 300 MG No 1{capsu le_with _a_meal } QD Magnesium 300 MG Vitamin B-1 Vitamin B-1 No Vi tamin B-1 Lisinopril 20 MG Lisinopril 20 MG No 1{table t} QD Lisinopril 20 MG amLODIPine Besylate 5 MG amLODIPine Besylate 5 MG No 1{table t} QD amLODIPine Besylate 5 MG [place] Levothyroxi ne Sodium 25 MCG Levothyroxi ne Sodium 25 MCG No QD Levothyrox ine Sodium 25 MCG Lisinopril 20 MG Lisinopril 20 MG No 1{table t} QD Lisinopril 20 MG Magnesium 300 MG Magnesium 300 MG No 1{capsu le_with _a_meal } QD Magnesium 300 MG Lisinopril 20 MG Lisinopril 20 MG No 1{table t} QD Lisinopril 20 MG Vitamin B-1 Vitamin B-1 No Vi tamin B-1 amLODIPine Besylate 5 MG amLODIPine Besylate 5 MG No 1{table t} QD amLODIPine Besylate 5 MG Lisinopril 20 MG Lisinopril 20 MG No 1{table t} QD Lisinopril 20 MG [place] amLODIPine Besylate 5 MG amLODIPine Besylate 5 MG No 1{table t} QD amLODIPine Besylate 5 MG Magnesium 300 MG Magnesium 300 MG No 1{capsu le_with _a_meal } QD Magnesium 300 MG Magnesium 300 MG Magnesium 300 MG No 1{capsu le_with _a_meal } QD Magnesium 300 MG Vitamin B-1 Vitamin B-1 No Vi tamin B-1 Lisinopril 20 MG Lisinopril 20 MG No 1{table t} QD Lisinopril 20 MG amLODIPine Besylate 5 MG amLODIPine Besylate 5 MG No 1{table t} QD amLODIPine Besylate 5 MG Lisinopril 20 MG Lisinopril 20 MG No 1{table t} QD Lisinopril 20 MG Vital Signs Vital Name Observation Time Observation Value Comments S elce height 2022-11-08 08:20:00 70 [in_i] Commo n [facility] weight 2022-11-08 08:20:00 190 [lb_av] Comm on [facility] temperature 2022-11-08 08:20:00 97.5 [degF] Com [facility] bmi 2022-11-08 08:20:00 27.26 kg/m2 Comm on [facility] oximetry 2022-11-08 08:20:00 97 % Commo n [facility] respiratory rate 2022-11-08 08:20:00 16 /min [facility] blood pressure systolic 2022-11-08 08:20:00 136 mm[Hg] [facility] blood pressure diastolic 2022-11-08 08:20:00 66 mm[Hg] [facility] height 2022-08-22 09:15:00 70 [in_i] Commo n [facility] weight 2022-08-22 09:15:00 190 [lb_av] Comm on [facility] temperature 2022-08-22 09:15:00 97.6 [degF] Com [facility] bmi 2022-08-22 09:15:00 27.26 kg/m2 Comm on [facility] blood pressure systolic 2022-08-22 09:15:00 124 mm[Hg] [facility] blood pressure diastolic 2022-08-22 09:15:00 80 mm[Hg] [facility] height 2022-08-10 09:00:00 70 [in_i] Commo n [facility] weight 2022-08-10 09:00:00 97.1 [lb_av] Com [facility] temperature 2022-08-10 09:00:00 97.1 [degF] Com [facility] bmi 2022-08-10 09:00:00 13.93 kg/m2 Comm on [facility] oximetry 2022-08-10 09:00:00 99 % Commo n [facility] respiratory rate 2022-08-10 09:00:00 16 /min [facility] blood pressure systolic 2022-08-10 09:00:00 128 mm[Hg] [facility] blood pressure diastolic 2022-08-10 09:00:00 58 mm[Hg] [facility] height 2022-08-01 09:00:00 71 [in_i] Commo n [facility] weight 2022-08-01 09:00:00 190 [lb_av] Comm on [facility] temperature 2022-08-01 09:00:00 97.1 [degF] Com [facility] bmi 2022-08-01 09:00:00 26.5 kg/m2 Commo n [facility] blood pressure systolic 2022-08-01 09:00:00 120 mm[Hg[facility] diastolic 2022-08-01 09:00:00 70 mm[Hg] [facility] height 2022-07-18 09:15:00 71 [in_i] Commo n [facility] weight 2022-07-18 09:15:00 190 [lb_av] Comm on [facility] temperature 2022-07-18 09:15:00 96.7 [degF] Com mon [facility] bmi 2022-07-18 09:15:00 26.5 kg/m2 Commo n [facility] blood pressure systolic 2022-07-18 09:15:00 112 mm[Hg] [facility] blood pressure diastolic 2022-07-18 09:15:00 71 mm[Hg] [facility] Encounters Start Date/Time End Date/Time Encounter Type Admission Type Attending [facility] Care Department Encounter ID Source 2022-11-06 10:12:00 Outpatient Bhakti Muse [facility] [id number] [facility] 2022-10-25 09:29:00 Outpatient Bhakti Muse [facility] [id number] [facility] 2022-08-23 11:09:00 Outpatient Bhakti Muse [facility] [id number] [facility] 2022-08-22 09:45:00 Outpatient Bhakti Muse [facility] STLC [id number] [facility] 2022-08-10 09:09:00 Outpatient Bhakti Muse STLMLC STLC [id number] [facility] 2022-08-08 07:49:00 Outpatient Bhakti Muse [facility] STLMLC [id number] [facility] 2022-07-18 09:55:00 Outpatient Bhakti Muse STLMLC STLMLC [id number] [facility] 2022-07-12 14:14:00 Outpatient Bhakti Muse STLMLC STLC [id number] [facility] 2023-09-13 13:05:35 2023-09-13 13:05:35 Outpatient SFA SFA [id number] Brock Pascal Adama 2023-05-28 15:26:49 2023-05-28 15:26:49 Outpatient SFA SFA [id number] Brock Galan 2023-05-27 14:20:17 2023-05-27 14:20:17 Outpatient SFA [facility] [id number] Brock Galan 2023-05-20 14:59:42 2023-05-20 14:59:42 Outpatient [facility] [id number] Brock Galan 2023-05-20 14:58:23 2023-05-20 14:58:23 Outpatient [facility] [id number] Brock Galan 2022-12-10 11:14:50 2022-12-10 11:14:50 Outpatient [facility] [id number] Brock Galan 2022-11-08 00:00:00 2022-11-08 00:00:00 OFFICE VISIT EST PT LEVEL 3 STLMLC STLMLC [id number] [facility] 2022-08-22 00:00:00 2022-08-22 00:00:00 OFFICE VISIT EST PT LEVEL 3 STLMLC STLMLC [id number] [facility] 2022-08-10 00:00:00 2022-08-10 00:00:00 OFFICE VISIT NEW PT LEVEL 3 STLMLC STLMLC [id number] [facility] 2022-08-01 00:00:00 2022-08-01 00:00:00 OFFICE VISIT EST PT LEVEL 3 STLMLC STLMLC [id number] [facility] 2022-07-18 00:00:00 2022-07-18 00:00:00 OFFICE VISIT NEW PT LEVEL 3 STLMLC STLMLC [id number] [facility] 2020-04-25 13:20:00 2020-04-25 13:20:00 Outpatient [facility] [id number] [facility] 2018-04-09 13:15:00 2018-04-09 13:15:00 [facility] [id number] [facility] Results Test Description Test Time Test Comments Results Result Co mments Source BILIRUBIN, [id number] 06:03:41* Test Item Value Reference Range Interpretation Comme nts BILIRUBIN, DIRECT (test code = 2021) 1.0 MG/DL 0.0-0.3 H PROTHROMBIN TIME (PT)2023-05-28 03:13:32* Test Item Value Reference Range Interpretation Comme nts PROTHROMBIN TIME (PT) (test code = 1402) 14.5 SECONDS 12.5-14.7 INR (test code = 00255) 1.1 SEE BELOW CURRENT RECOMMENDATIONS ARE FOR AN INR OF 2.0-3.0 FOR ALL PATIENTS ON VITAMIN K ANTAGONISTS, EXCEPT THOSE WITH PROSTHETIC HEART VALVES, FOR WHOM INR OF 2.5-3.5 IS RECOMMENDED. HEMOGLOBIN [id number] 05:42:49* Test Item Value Reference Range Interpretation Comme nts HEMOGLOBIN A1c (test code = 86105) 4.8 % 4.2-5.6 CBC W/AUTO DIFF WITH [id number] 04:20:04* Test Item Value Reference Range Interpretation Comme nts WBC (test code = 1001) 6.6 K/UL 3.5-11.0 RBC (test code = 1002) 4.07 M/UL 4.50-6.10 L HEMOGLOBIN (test code = 1003) 15.5 G/DL 13.5-17.0 HEMATOCRIT (test code = 1004) 42.7 % 40.0-51.0 MCV (test code = 1005) 104.9 fL 80.0-99.0 H MCH (test code = 1006) 38.1 PG 25.0-33.0 H MCHC (test code = 1007) 36.3 G/DL 31.0-36.0 H RDW (test code = 1038) 13.2 % 11.5-15.0 NEUTROPHILS (test code = 1008) 57.6 % LYMPHOCYTES (test code = 1010) 24.7 % MONOCYTES (test code = 1011) 12.7 % EOSINOPHILS (test code = 1012) 3.5 % BASOPHILS (test code = 1013) 1.2 % IMMATURE GRANULOCYTES (test code = 1036) 0.3 % NUCLEATED RBCS (test code = 1065) 0.0 /100 WBC'S See_Comment [Automated message] The system which generated this result transmitted reference range: 0.0. The reference range was not used to interpret this result as normal/abnormal. PLATELET COUNT (test code = 1015) 171 K/UL 130-400 ABSOLUTE NEUTROPHILS (test code = 1066) 3.78 K/UL 1.50-7.50 ABSOLUTE LYMPHOCYTES (test code = 1067) 1.62 K/UL 1.00-4.00 ABSOLUTE MONOCYTES (test code = 1068) 0.83 K/UL 0.20-1.00 ABSOLUTE EOSINOPHILS (test code = 1040) 0.23 K/UL 0.00-0.50 ABSOLUTE BASOPHILS (test code = 1069) 0.08 K/UL 0.00-0.20 ABS IMMATURE GRANULOCYTES (test code = 1020) 0.02 K/UL 0.00-0.10 ABS NUCLEATED RBCS (test code = 64774) 0.00 K/UL 0.00-0.11 UNLESS OTHER PARNELL INDICATED, ALL TESTING PERFORMED AT CL[facility]ICAL PATHOLOG[facility] [address] [place] [id number] PAIN MANAGEMENT NURSE: BROOKE GAR M.D. CLIA NUMBER [id number] [facility] [place] [id number] COMPREHENSIVE METABOLIC [id number] 03:29:19* Test Item Value Reference Range Interpretation Comme nts GLUCOSE (test code = 2217) 96 MG/DL 70-99 BUN (test code = 2208) 7 MG/DL 8-23 L CREATININE (test code = 2214) 0.73 MG/DL 0.80-1.40 L eGFR (2020 CKD-EPI) (test code = 98440) 102 ML/MIN/1.73 >60 CALC BUN/CREAT (test code = 2235) 10 RATIO 6-28 SODIUM (test code = 2231) 132 MEQ/L 133-146 L POTASSIUM (test code = 2228) 3.9 MEQ/L 3.5-5.4 CHLORIDE (test code = 2215) 94 MEQ/L 95-107 L CARBON DIOXIDE (test code = 2206) 26 MEQ/L 19-31 CALCIUM (test code = 2209) 9.5 MG/DL 8.5-10.5 PROTEIN, TOTAL (test code = 2229) 8.4 G/DL 6.1-8.3 H ALBUMIN (test code = 2201) 3.3 G/DL 3.5-5.2 L CALC GLOBULIN (test code = 2240) 5.1 G/DL 1.9-3.7 H CALC A/G RATIO (test code = 223) 0.6 RATIO 1.0-2.6 L BILIRUBIN, TOTAL (test code = 2207) 3.2 MG/DL See_Comment H [Automated me ssage] The system which generated this result transmitted reference range: <=1.2. The reference range was not used to interpret this result as normal/abnormal. ALKALINE PHOSPHATASE (test code = 2203) 159 U/L 40-123 H AST (test code = 221) 61 U/L 9-50 H ALT (test code = 2219) 25 U/L 5-50 LIPID [id number] 03:29:19* Test Item Value Reference Range Interpretation Comme nts CHOLESTEROL (test code = 2210) 106 MG/DL <200 TRIGLYCERIDES (test code = 2232) 97 MG/DL <150 HDL CHOLESTEROL (test code = 2220) 23 MG/DL >39 L CALC LDL CHOL (test code = 2237) 65 MG/DL <100 NOTE: CALCULATED LDL IS BASED ON SHIRA-MENDOZA METHOD WHICHINCLUDES ADJUSTABLE TRIGLYCERIDE:VLDL CHOLESTEROL RATIO.THIS FACTOR VARIES BY MEASURED TRIGLYCERIDE AND NON-HDLCHOLESTEROL CONCENTRATIONS WITH INCREASED CALCULATED LDL SEENIN HIGHER TRIGLYCERIDE OR LOWER NON-HDL SPECIMENS. FOR MOREINFORMATION, SEE CLIENT ANNOUNCEMENT AT [email or web address] RATIO LDL/HDL (test code = 2238) 2.83 RATIO <3.55
[2024-10-31] MEDS ORDERED: ONDANSETRON 4 MG (ODT) TAB ONE (10:25)
[2024-10-31] MEDS ORDERED: MORPHINE 4 MG/ML SYR ONE ×3 (10:25→13:28)
--- NOTE | 2024-10-31 10:47 | RAD REPORT ---
EXAM: Chest Single View HISTORY: FALL INJURY COMPARISON: 07/09/2022 FINDINGS: LUNGS/PLEURA: The lungs are clear. No pleural effusions or pneumothorax. No pulmonary edema. MEDIASTINUM: The mediastinal silhouette is within normal limits. CARDIAC: The cardiac silhouette is within normal limits. UPPER ABDOMEN: No significant abnormality. BONES: No acute fracture. LINES/TUBES/OTHER: N/A IMPRESSION: No evidence of acute cardiopulmonary disease.
[2024-10-31 10:49] LABS: Absolute Basophils 0.1 K/uL (0-0.5); Absolute Monocytes 0.6 K/uL (0.1-1.3); Absolute Neutrophil 6.1 K/uL (1.8-8.0); Basophils % 0.6 % (0-1.3); Eosinophils % 0.6 % (0-4.4); Hematocrit 45.1 % (39.6-49.0); Hemoglobin 15.7 g/dL (13.6-17.9); Lymphocytes % 12.7 % (15.3-44.8); MCH 38.2 pg (27.0-35.0); MCHC 34.8 g/dL (32.0-36.0); MCV 109.6 fL (80-100); MPV 7.3 fL (7.6-11.3); Monocytes % 8.1 % (3.3-12.3); Nucleated Red Blood Cells % 0.3 % (0-0); Platelets 182 thou/uL (152-406); RBC Red Blood Cell Count 4.12 M/uL (4.33-5.43)
--- NOTE | 2024-10-31 10:50 | RAD REPORT ---
EXAMINATION: Hip Right 2 View CLINICAL INDICATION: Male, 64 years old. PAIN RIGHT COMPARISON: No prior exam. FINDINGS: Mildly displaced right femoral neck fracture. It is uncertain if this is subcapital or even intertroc hanteric due to the overlapping of fragments. No dislocation. Mild right acetabular degenerative changes. Other: n/a IMPRESSION: Right proximal femur fracture which is mildly displaced. No dislocation. Due to the alignment of the fracture with overlapping anatomy, cannot definitively distinguish between femoral neck or intratrochanteric, though femoral neck is favored. CT could better delineate.
[2024-10-31 11:06] LABS: Anion Gap 9.5 mEq/L (5.0-15.0); Potassium 3.5 mEq/L (3.5-5.1)
--- NOTE | 2024-10-31 11:40 | EDPHYS ---
Physician Documentation [facility] Name: Graham Day Age: 64 yrs Sex: Male : 1960 Arrival Date: 10/31/2024 Time: 10:11 Bed 14 Private MD: ED Physician Sumit Lau HPI: 10/31 10:20 This 64 yrs old Male presents to ER via Unassigned with complaints of right hip pain. sb4 10:21 patient sustained mechanical fall last night, fell onto his right hip. called EMS, was sb4 examined, did not go to hospital. pain has persisted and worsened, called EMS again this morning. states the pain radiates down his leg. denies any numbness or tingling. Historical: - Allergies: 10:20 No Known Allergies; rs5 - PMHx: 10:20 etoh abuse; Hydradentitis; Hypertension; rs5 - PSHx: 10:20 None; rs5 - Immunization history:: Adult Immunizations up to date. - Infectious Disease History:: Denies. - Social history:: Smoking status: Patient denies any tobacco usage or history of. ROS: 10:21 Constitutional: Negative for fever, chills, and weight loss, sb4 10:21 MS/extremity: Positive for injury or acute deformity, decreased range of motion, pain, of the right hip, 10:21 All other systems are negative, Exam: 10:21 Head/Face: Normocephalic, atraumatic. Eyes: Extra-ocular motions intact. Periorbital sb4 areas with no swelling, redness, or edema. Respiratory: No increased work of breathing, no retractions or nasal flaring. Skin: Warm, dry with normal turgor. Normal color with no rashes, no lesions, and no evidence of cellulitis. 10:21 Constitutional: The patient appears alert, awake, unkempt, 10:21 Musculoskeletal/extremity: Joints: All joints are normal except the right hip displays limited range of motion, pain at rest, painful range of motion, tenderness, Vital Signs: 10:18 BP 154 / 99; Pulse 74; Resp 17; Temp 98(O); Pulse Ox 97% on R/A; rs5 11:19 BP 125 / 79; Pulse 77; Resp 17; Pulse Ox 98% ; Height 1 ft. 0 in. ; rs5 14:05 BP 135 / 74; Pulse 81; Resp 17; Pulse Ox 97% on R/A; rs5 16:22 BP 117 / 74; Pulse 74; Resp 17; Pulse Ox 98% on R/A; rs5 MDM: 10:16 Medical Screening Exam initiated sb4 10:23 Differential diagnosis: hip fracture, intertrochanteric fracture, femoral neck sb4 fracture, strain, contusion. 11:35 Data reviewed: vital signs, nurses notes, EMS record, lab test result(s), radiologic sb4 studies, and as a result, I will admit patient. Consideration of Admission/Observation Patient was admitted/placed on observation. Management of patient was discussed with the following: Nurses Aide: Dr. Díaz, agrees to consult. Care significantly affected by the following chronic conditions: Hypertension. Counseling: I had a detailed discussion with the patient and/or guardian regarding the historical points, exam findings, and any diagnostic results supporting the discharge/admit diagnosis, lab results, radiology results, the need for further work-up and treatment in the hospital. 10/31 10:33 Order name: Basic Metabolic Panel; Complete Time: 11:17 sb4 10/31 10:33 Order name: CBC with Diff; Complete Time: 12:00 sb4 10/31 10:33 Order name: ETOH Level; Complete Time: 11:17 sb4 10/31 11:56 Order name: CBC Smear Scan; Complete Time: 12:00 EDMS 10/31 13:35 Order name: Creatine Phosphokinase EDMS 10/31 13:35 Order name: Creatine Phosphokinase EDMS 10/31 13:35 Order name: Creatine Phosphokinase EDMS 10/31 13:35 Order name: Creatine Phosphokinase EDMS 10/31 13:35 Order name: Protime (+INR) EDMS 10/31 13:35 Order name: Protime (+INR) EDMS 10/31 13:35 Order name: Protime (+INR) EDMS 10/31 13:35 Order name: Protime (+INR) EDMS 10/31 13:38 Order name: CBC with Automated Diff EDMS 10/31 13:38 Order name: CBC with Automated Diff EDMS 10/31 13:38 Order name: CBC with Automated Diff EDMS 10/31 13:38 Order name: CBC with Automated Diff EDMS 10/31 15:12 Order name: Liver (Hepatic) Function EDMS 10/31 15:25 Order name: Thyroid Stimulating Hormone EDMS 10/31 15:25 Order name: Comprehensive Metabolic Panel EDMS 10/31 15:25 Order name: Comprehensive Metabolic Panel EDMS 10/31 15:25 Order name: Comprehensive Metabolic Panel EDMS 10/31 15:25 Order name: Comprehensive Metabolic Panel EDMS 10/31 15:25 Order name: Lipid Profile EDMS 10/31 15:25 Order name: Lipid Profile EDMS 10/31 15:25 Order name: Magnesium EDMS 10/31 15:25 Order name: Magnesium EDMS 10/31 15:25 Order name: Magnesium EDMS 10/31 15:25 Order name: Magnesium EDMS 10/31 15:25 Order name: Phosphorus EDMS 10/31 15:25 Order name: Phosphorus EDMS 10/31 15:25 Order name: Phosphorus EDMS 10/31 15:25 Order name: Phosphorus EDMS 10/31 10:17 Order name: Hip Right 2 View XRAY; Complete Time: 10:50 4 10/31 10:40 Order name: Chest Single View; Complete Time: 10:48 EDSD 10/31 10:51 Order name: CT Pelvis wo Cont; Complete Time: 12:00 sb4 10/31 11:18 Order name: CT Lumbar Spine Wo Con; Complete Time: 11:48 sb4 10/31 12:10 Order name: Head C Spine Mpr Wo Con; Complete Time: 14:10 EDSD 10/31 13:47 Order name: Thoracic Spine Wo Cont; Complete Time: 14:16 EDSD 10/31 15:25 Order name: CONS Physician Consult EDSD 10/31 15:25 Order name: CONS Physician Consult EDSD 10/31 15:25 Order name: Physical Therapy Consult EDSD 10/31 10:33 Order name: Labs collected and sent; Complete Time: 10:47 sb4 10/31 10:33 Order name: IV Start; Complete Time: 10:47 sb4 Administered Medications: 10:25 Drug: morphine IM 4 mg IM once Route: IM; Site: left deltoid; rs5 11:20 Follow up: Response: No adverse reaction; Pain is decreased rs5 10:25 Drug: Ondansetron PO 4 mg PO once Route: PO; rs5 11:01 Follow up: Response: No adverse reaction rs5 Disposition Summary: 10/31/24 11:40 Hospitalization Ordered Notes: Hospitalization Status: Inpatient Admission sb4 Provider: Simón Melgar sb4 Location: Telemetry/MedSurg (Inpatient) sb4 Condition: Fair sb4 Problem: new sb4 Symptoms: are unchanged sb4 Bed/Room Type: Standard sb4 Room Assignment: 206(10/31/24 15:34) ja1 Diagnosis - Nondisplaced intertrochanteric fracture of right femur sb4 Forms: - Medication Reconciliation Form sb4 - SBAR form sb4 - Leadership Thank You Letter sb4 Addendum: 11/05/2024 12:47 Co-signature as Attending Physician, Sumit Lau MD I agree with the assessment and c hartman plan of care. Signatures: Dispatcher [employer] EDMS Sumit Lau MD MD cha Aguilar, Jose, RN RN ja1 Anastacia Stokes PA-C PAAlyshaC sb4 Deni Smith, RN RN rs5 Corrections: (The following items were deleted from the chart) 10/31 10:17 10:17 Hip Right 2 View+[email or web address] ordered. EDMS EDMS 13:38 13:35 Hemoglobin ordered. EDMS EDMS 13:38 13:35 Hemoglobin ordered. EDMS EDMS 13:38 13:35 Hemoglobin ordered. EDMS EDMS 13:38 13:35 Hemoglobin ordered. EDMS EDMS 15:34 11:40 sb4 ja1
--- NOTE | 2024-10-31 11:40 | ER ---
Nurse's Notes [facility] Name: Graham Day Age: 64 yrs Sex: Male : 1960 Arrival Date: 10/31/2024 Time: 10:11 Bed 14 Private MD: Diagnosis: Nondisplaced intertrochanteric fracture of right femur Presentation: 10/31 10:18 Chief complaint: EMS states: Slipped and fell last night while trying to grab something rs5 out of refrigerator. Landed on right hip, denies LOC, is not on blood thinners. Complains of pain to right hip and leg. Coronavirus screen: At this time, the client does not indicate any symptoms associated with coronavirus-19. Ebola Screen: No symptoms or risks identified at this time. Initial Sepsis Screen: Does the patient meet any 2 criteria? No. Patient's initial sepsis screen is negative. Does the patient have a suspected source of infection? No. Patient's initial sepsis screen is negative. Risk Assessment: Do you want to hurt yourself or someone else? Patient reports no desire to harm self or others. Onset of symptoms was October 31, 2024. 10:18 Method Of Arrival: EMS: [facility] rs5 10:18 Acuity: ANA 3 rs5 Historical: - Allergies: 10:20 No Known Allergies; rs5 - PMHx: 10:20 etoh abuse; Hydradentitis; Hypertension; rs5 - PSHx: 10:20 None; rs5 - Immunization history:: Adult Immunizations up to date. - Infectious Disease History:: Denies. - Social history:: Smoking status: Patient denies any tobacco usage or history of. Screenin:20 [facility] ED Fall Risk Assessment (Adult) History of falling in the last 3 months, rs5 including since admission Yes- single mechanical fall (1 pt) Confusion or Disorientation No (0 pts) Intoxicated or Sedated No (0 pts) Impaired Gait Yes (1 pt) Mobility Assist Device Used Yes (1 pt) Altered Elimination No (0 pt) Score/Fall Risk Level 3 or more points = High Risk Oriented to surroundings, Maintained a safe environment. Abuse screen: Denies threats or abuse. Nutritional screening: No deficits noted. Tuberculosis screening: No symptoms or risk factors identified. Assessment: 10:17 General: Appears in no apparent distress. uncomfortable, Behavior is calm, cooperative. rs5 Pain: Complains of pain in right hip Pain currently is 8 out of 10 on a pain scale. Quality of pain is described as aching, Is continuous. 10:17 Neuro: Level of Consciousness is awake, alert, obeys commands, Oriented to person, rs5 place, time, situation. Cardiovascular: Patient's skin is warm and dry. Respiratory: Airway is patent Respiratory effort is even, unlabored, Respiratory pattern is regular, symmetrical. GI: Abdomen is round non-distended, Abd is soft and non tender X 4 quads. : No signs and/or symptoms were reported regarding the genitourinary system. EENT: No signs and/or symptoms were reported regarding the EENT system. Derm: Skin is intact, Skin is normal. Musculoskeletal: Range of motion: limited in right leg. 10:20 Reassessment: to bedside to adm IM morphine, morphine syringe dropped on floor rs5 accidentally by me. . 10:22 Reassessment: to pixis to waste 4 mg morphine that was dropped on floor, witnessed and rs5 wasted by Ramonita Coats New vial obtained and adm to pt by me for pain relief. 10:59 Reassessment: Patient and/or family updated on plan of care and expected duration. Pain rs5 level reassessed. Patient is alert, oriented x 3, equal unlabored respirations, skin warm/dry/pink. 12:04 Reassessment: Patient and/or family updated on plan of care and expected duration. Pain rs5 level reassessed. Patient is alert, oriented x 3, equal unlabored respirations, skin warm/dry/pink. 13:10 Reassessment: Patient and/or family updated on plan of care and expected duration. Pain rs5 level reassessed. Patient is alert, oriented x 3, equal unlabored respirations, skin warm/dry/pink. 14:15 Reassessment: Patient and/or family updated on plan of care and expected duration. Pain rs5 level reassessed. Patient is alert, oriented x 3, equal unlabored respirations, skin warm/dry/pink. 15:35 Reassessment: Patient and/or family updated on plan of care and expected duration. Pain rs5 level reassessed. Patient is alert, oriented x 3, equal unlabored respirations, skin warm/dry/pink. 16:32 Reassessment: Patient and/or family updated on plan of care and expected duration. Pain rs5 level reassessed. Patient is alert, oriented x 3, equal unlabored respirations, skin warm/dry/pink. Vital Signs: 10:18 BP 154 / 99; Pulse 74; Resp 17; Temp 98(O); Pulse Ox 97% on R/A; rs5 11:19 BP 125 / 79; Pulse 77; Resp 17; Pulse Ox 98% ; Height 1 ft. 0 in. ; rs5 14:05 BP 135 / 74; Pulse 81; Resp 17; Pulse Ox 97% on R/A; rs5 16:22 BP 117 / 74; Pulse 74; Resp 17; Pulse Ox 98% on R/A; rs5 ED Course: 10:16 Patient arrived in ED. sb4 10:16 Anastacia Stokes PA-C is PHCP. sb4 10:16 Sumit Lau MD is Attending Physician. sb4 10:18 Deni Smith, RN is Primary Nurse. rs5 10:20 Triage completed. rs5 10:20 Patient has correct armband on for positive identification. Placed in gown. Bed in low rs5 position. Call light in reach. Side rails up X2. 10:20 No provider procedures requiring assistance completed. rs5 10:30 Inserted saline lock: 20 gauge in right antecubital area, using aseptic technique. rs5 Blood collected. Flushed with 10 mL NS. 10:44 Hip Right 2 View XRAY In Process Unspecified. EDMS 10:44 Chest Single View In Process Unspecified. EDMS 11:32 CT Pelvis wo Cont In Process Unspecified. EDMS 11:32 CT Lumbar Spine Wo Con In Process Unspecified. EDMS 11:40 Simón Melgar is Hospitalizing Provider. sb4 13:58 Head C Spine Mpr Wo Con In Process Unspecified. EDMS 13:58 Thoracic Spine Wo Cont In Process Unspecified. EDMS 16:30 Provided Education on: need for admit. rs5 16:45 Patient admitted, IV remains in place. rs5 Administered Medications: 10:25 Drug: morphine IM 4 mg IM once Route: IM; Site: left deltoid; rs5 11:20 Follow up: Response: No adverse reaction; Pain is decreased rs5 10:25 Drug: Ondansetron PO 4 mg PO once Route: PO; rs5 11:01 Follow up: Response: No adverse reaction rs5 Medication: 10:59 VIS not applicable for this client. rs5 Outcome: 11:40 Decision to Hospitalize by Provider. sb4 16:45 Admitted to Med/surg accompanied by tech, rs5 16:45 Condition: stable 16:45 Instructed on the need for admit, 16:45 Demonstrated understanding of instructions, 16:47 Patient left the ED. rs5 Signatures: Dispatcher [employer] EDAnastacia Nina, PA-C PA-C sb4 Deni Smith, RN RN rs5 Corrections: (The following items were deleted from the chart) 17:29 16:22 BP 124 / 81; Pulse 74bpm; Resp 17bpm; Pulse Ox 98% RA; rs5 rs5
--- NOTE | 2024-10-31 11:42 | RAD REPORT ---
EXAMINATION: CT LUMBAR SPINE WITHOUT CONTRAST CLINICAL INDICATION: Male, 64 years old. LOWER BACK PAIN TECHNIQUE: Axial CT images were obtained through the lumbar spine in soft tissue and bone windows wit hout intravenous contrast. Coronal and Sagittal reformatted images were created from the data set. One or more of the following dose reduction techniques were used: Automated exposure control, adjustm ent of the mA and/ or kV according to patient size, and/or iterative reconstruction. Unless otherwise specified, incidental findings do not require dedicated imaging follow-up. [id number]. COMPARISON: CT 07/09/2022. FINDINGS: T12, L1, L3, and L4 compression fractures which are new since 07/09/2022. The T12 compression fracture has approximately 20% loss of height anteriorly. The L1 compression fracture has approximately 40% loss of height anteriorly. L3 and L4 both have approximately 20-30% loss of height. These compression fractures appear chronic. There is a slight superior endplate deformity along the left aspect of L2 which is also favored chronic. Mild disc height loss is present L5-S1. Broad-based disc bulges are present at L3-4, L4-5, and L5-S1. There is evidence of mild to moderate neural foraminal narrowing. At least mild central spinal stenosis is present. No definite high-grade central spinal st enosis. IMPRESSION: Compression fractures in the lower thoracic and lumbar spine which are favored subacute or chronic. M RI could better establish acuity if clinically indicated.
--- NOTE | 2024-10-31 11:52 | RAD REPORT ---
EXAMINATION: CT ABDOMEN WITHOUT CONTRAST CLINICAL INDICATION: Male, 64 years old. TRAUMA TECHNIQUE: CT pelvis was performed, without IV contrast, as per department protocol. Axial, sagittal and coronal reconstructions were obtained. One or more of the following dose reduction techniques were used: Automated exposure control, adjustment of the mA and/or kV according to patient size, and/ or iterative reconstruction. Unless otherwise specified, incidental findings do not require dedicated imaging follow-up. [id number]. IV CONTRAST: Not administered. COMPARISON: Same-day radiograph FINDINGS: The lack of intravenous contrast limits the sensitivity of this exam for evaluation of solid visceral organs, vascular structures, and retroperitoneum. Acute fracture of the right proximal femur. The fracture is is a mild apex anterior angulation and is comminuted with mild displacement. The fracture is probably closest to an intertrochanteric fracture as it involves the lesser trochanter and comes into close approximation to the greater trochanter. No dislocation. No other pelvic fractures a re identified. Moderate stool in the rectum. Diverticulosis without diverticulitis. Aortic atherosclerosis. ADDITIONAL FINDINGS: None. IMPRESSION: Comminuted and mildly displaced right proximal femur fracture which has features more indicative of a n intertochanteric fracture rather than basicervical. No dislocation.
[2024-10-31 11:55] LABS: Anisocytosis 1+; Blood Morphology Comment NOTED (NOT SEEN); Macrocytosis 1+; Platelet Estimate ADEQ; White Blood Cell Scan OK (OK)
--- NOTE | 2024-10-31 12:31 | P.HP ---
Certification for Inpatient Patient admitted to: Inpatient With expected LOS: >2 Midnights Patient will require the following post-hospital care: Rehabilitation Practitioner: I am a practitioner with admitting privileges, knowledge of patient current condition, hospital course, and medical plan of care. Services: Services provided to patient in accordance with Admission requirements found in Title 42 Section 412.3 of the Code of Federal Regulations Patient History Date of Service: 10/31/24 Reason for admission: s/p fall with right hip fracture History of Present Illness: Mr. Day is a 64-year-old male with a past medical history of here adenitis suppurativa, hypertension, and significant tobacco and EtOH abuse. Over the past 2 years, he has had multiple falls with multiple fractures including a right humerus fracture, T12-L1, L3-L4 compression fractures. He takes no daily medications and denies any allergy to medications. He apparently drinks 1 pint of whiskey daily and smokes 1 pack of cigarettes daily. His significant other states that he did not eat yesterday but drank heavily and then fell onto the tile floor. She states he laid there for about an hour before she could get him closer to the bed and EMS was called. They got him to the bed but he refused transport. Upon waking this morning, he decided to come to the emergency department via EMS secondary to pain and feeling poorly. On exam he was noted to have a shortened and externally rotated right lower extremity and imaging shows a comminuted and mildly displaced proximal right femur fracture. Dr. Díaz was contacted per ED MD and agrees to consult but request cardiology clearance. We will await results of CT head and C-spine (negative for fx, advanced atrophy for age, and "large polypoid nasal mass identified"). and then admit Mr. Day for treatment of his femur fracture with detox/seizure precautions and cardiology consultation. Allergies No Known Allergies Allergy (Verified 01/27/16 10:07) Home medications list reviewed: Yes (None) Home Medications: Doxycycline Hyclate 100 mg PO BID 7 Days #14 tab 07/10/22 Folic Acid 1 mg PO DAILY #30 tab 07/10/22 Hydrocodone 5/APAP 325 [[place] 5/325] 1 tab PO Q6H PRN 3 Days #10 tab 07/10/22 Magnesium Oxide [Mag 0X*] 400 mg PO BID 07/10/22 Thiamine HCl [Vitamin B-1*] 100 mg PO DAILY #30 tab 07/10/22 - Past Medical/Surgical History Has patient received pneumonia vaccine in the past: No Diabetic: No -: Hidradenitis Suppurativa -: Hypertension -: Alcoholism -: multiple surgical I&D areas Psychosocial/ Personal History: Patient lives at home with significant other. He has a daughter. - Social History Smoking Status: Heavy Tobacco smoker (>10 cigarettes/day) Smoking therapy provided: Yes Patient receptive to therapy: No Alcohol use: Yes CD- Drugs: No Caffeine use: Yes Place of Residence: Home Review of Systems 10-point ROS is otherwise unremarkable General: Unremarkable Eyes: Unremarkable ENT: Unremarkable Respiratory: Unremarkable Cardiovascular: Unremarkable Gastrointestinal: Unremarkable Genitourinary: Unremarkable Musculoskeletal: As per HPI Integumentary: Unremarkable Neurological: As per HPI Lymphatics: Unremarkable Physical Examination - Physical Exam General: Alert, In no apparent distress, Oriented x3 HEENT: Atraumatic, Other (bulbous nose without nares visible) Neck: Supple Respiratory: Normal air movement, Other (via open mouth) Cardiovascular: No edema, Regular rate/rhythm, Gallops, Systolic murmur Capillary refill: <2 Seconds Gastrointestinal: Hepatosplenomegaly, Tenderness Musculoskeletal: No clubbing, No swelling, Tenderness (Right femur), Other (Right lower extremity shortened and externally rotated, pulses equal and +2 bilaterally) Integumentary: Other Neurological: Normal speech Lymphatics: No axilla or inguinal lymphadenopathy, Other (Prior hiradenitis sites) External genitalia: Deferred Rectal: Deferred - Studies Laboratory Data (last 24 hrs) 10/31/24 10/31/24 10:42 10:42 WBC 7.90 Hgb 15.7 Hct 45.1 Plt Count 182 Sodium 134 L Potassium 3.5 BUN 3 L Creatinine 0.70 Glucose 139 H Assessment and Plan - Plan Multiple falls secondary to alcohol abuse Alcohol withdrawal protocol Cessation recommended Fall precautions Imaging of brain, C-spine, T-spine prior to admission Monitor H&H Right proximal femur fracture secondary to #1 Neurochecks every 4, neurovascular checks Q4, pain control Consult Dr. Díaz AHA diet until midnight of surgical procedure Heart murmur with possible syncope probably secondary to holiday secondary to #1 Cardiology consult for surgical clearance Career Based Intervention Coordinator CPK Monitor INR Constipation Lactulose as needed Tobacco abuse Cessation recommended GI and VTE prophylaxis Protonix/SCDs or teds - Advance Directives Does patient have a Living Will: No Does patient have a Durable POA for Healthcare: No - Code Status/Comfort Care Code Status Assessed: Yes (Full) Critical Care: No
[2024-10-31] MEDS: MORPHINE 4 MG/ML SYR IV ONE (13:30)
[2024-10-31] MEDS: FOLIC ACID 1 MG, MULTIVITAMINS INJ 10 ML, THIAMINE HCL 100 MG in NA CHLORIDE 0.9% 1,000 ML IV SCH (14:00)
--- NOTE | 2024-10-31 14:08 | RAD REPORT ---
EXAMINATION: CT HEAD WITHOUT CONTRAST CT CERVICAL SPINE WITHOUT CONTRAST CLINICAL INDICATION: Male, 64 years old. fall with hip fx TECHNIQUE: Axial CT images from the skull base to the vertex without intravenous contrast. Axial CT i mages through the cervical spine were obtained without intravenous contrast. Sagittal and coronal reformatted images were created from the data set. Coronal and sagittal reformatted images were creat ed from the data set. One or more of the following dose reduction techniques were used: Automated exposure control, adjustment of the mA and/or kV according to patient size, and/or iterative reconstr uction. Unless otherwise specified, incidental findings do not require dedicated imaging follow-up. [id number]. COMPARISON: No prior exam. FINDINGS: Head: INTRACRANIAL: No acute intracranial hemorrhage. No hydrocephalus. No mass effect or midline shift. No significant white matter disease. Age advanced cerebral atrophy. VASCULATURE: No visualized abnormalities in the arteries or dural venous sinuses. SCALP/SKULL: Small hematoma versus nonspecific scalp nodule at the right parietal scalp. SINUSES: The visualized paranasal sinuses and mastoid air cells are predominantly clear. Large polypo id nasal mass identified. Cervical spine: ALIGNMENT: The cervical spine has normal alignment without scoliosis or spondylolisthesis. BONE: Vertebral body heights are maintained. No aggressive osseous lesions. DEGENERATIVE CHANGES: Multilevel cervical spondylosis with varying degrees of neural foraminal narrow ing. SOFT TISSUE: No acute abnormalities in the soft tissue of the neck. The visualized lung apices are cl ear. Paraseptal emphysema. Carotid artery calcifications. IMPRESSION: No acute intracranial abnormality. No acute fracture or traumatic malalignment of the cervical spine.
--- NOTE | 2024-10-31 14:15 | RAD REPORT ---
EXAM: Thoracic Spine Wo Cont HISTORY:trauma COMPARISON: None TECHNIQUE: Multiple contiguous axial images were obtained in a CT of the thoracic spine without contr ast. Sagittal and coronal reformats were performed. One or more of the following dose reduction techniques were used: Automated exposure control, adjustment of the mA and/or kV according to patient size, and/or iterative reconstruction. Unless otherwise specified, incidental findings do not require dedicated imaging follow-up. [id number]. FINDINGS: Diffuse idiopathic skeletal hyperostosis is present with bridging osteophytes. There is a f racture extending through the anterior wall of the T11 vertebral body and superior endplate. This appears acute. Remote appearing superior endplate fracture at T12 and L1. No traumatic malalignment. Dependent atelectasis. Remote left-sided rib fractures.: Lithiasis noted. Aortic atherosclerosis. Nodular liver contour. IMPRESSION: Nondisplaced fracture involving the anterior wall and superior endplate of T11 which is nondisplaced. No evidence of extension into the posterior elements. This fracture pattern is consistent with the patient's diffuse idiopathic skeletal hyperostosis (DISH).
[2024-10-31] MEDS ORDERED: chlordiazePOXIDE HCl 25 MG CAP ONE (14:23)
[2024-10-31] MEDS: chlordiazePOXIDE HCl 25 MG CAP PO SCH (15:38)
[2024-10-31 17:06] VITALS: BMI 24.4
[2024-10-31] MEDS ORDERED: LORazepam 2 MG/ML VIAL IV PRN (17:50)
[2024-10-31] MEDS: POTASSIUM CL SA 10 MEQ TAB PO ONE (20:11)
[2024-10-31] MEDS: MORPHINE 4 MG/ML SYR IV PRN (20:15)
[2024-10-31 23:40] LABS: Albumin 2.5 g/dL (3.4-5.0); Albumin/Globulin Ratio 0.4 (1.1-1.8); Bilirubin Direct 1.1 mg/dL (0-0.2); Bilirubin Indirect, Calculated 1.7 mg/dL (0.2-0.8); Bilirubin Total 2.8 mg/dL (0.2-1.0); Globulin 5.9 g/dL (2.3-3.5); Protein, Total 8.4 g/dL (6.4-8.2)
[2024-11-01 06:17] LABS: PT Prothrombin Time 15.1 SECONDS (9.4-12.5); Protime INR 1.36
[2024-11-01 06:23] LABS: Absolute Basophils 0.1 K/uL (0-0.5); Absolute Eosinophils 0.1 K/uL (0-0.5); Absolute Lymphocytes (CBC) 1.2 K/uL (0.7-4.9); Absolute Monocytes 0.6 K/uL (0.1-1.3); Absolute Neutrophil 4.1 K/uL (1.8-8.0); Basophils % 1.2 % (0-1.3); Eosinophils % 2.1 % (0-4.4); Hematocrit 44.1 % (39.6-49.0); Lymphocytes % 19.6 % (15.3-44.8); MCH 38.3 pg (27.0-35.0); MCV 112.7 fL (80-100); MPV 8.1 fL (7.6-11.3); Neutrophils % 67.1 % (41.7-73.7); Nucleated Red Blood Cells % 0.1 % (0-0); Platelets 122 thou/uL (152-406); RBC Red Blood Cell Count 3.91 M/uL (4.33-5.43); Red Cell Distribution Width 14.8 % (12.1-15.2)
[2024-11-01 06:42] LABS: Albumin 2.1 g/dL (3.4-5.0); Albumin/Globulin Ratio 0.4 (1.1-1.8); Anion Gap 6.9 mEq/L (5.0-15.0); Bilirubin Total 3.1 mg/dL (0.2-1.0); Globulin 5.3 g/dL (2.3-3.5); Magnesium 1.4 mg/dL (1.6-2.4); Phosphorus 3.1 mg/dL (2.5-4.9); Potassium 3.9 mEq/L (3.5-5.1); Protein, Total 7.4 g/dL (6.4-8.2)
[2024-11-01] MEDS ORDERED: ONDANSETRON 4 MG/2 ML VIAL IV PRN (07:42)
[2024-11-01] MEDS: ENOXAPARIN 40 MG/0.4 ML SQ SCH (07:53)
[2024-11-01] MEDS: Magnesium Sulfate 2gm IVPB 2 G/50 ML BAG IV ONE (07:53)
[2024-11-01] MEDS ORDERED: FOLIC ACID 1 MG, MULTIVITAMINS INJ 10 ML, THIAMINE HCL 100 MG in NA CHLORIDE 0.9% 1,000 ML IV SCH (09:00)
--- NOTE | 2024-11-01 09:26 | CON ---
Reason For Consultation: Right hip pain. History Of Present Illness: Graham is a 64-year-old male who was brought to the emergency room after having significant pain after a fall. The patient reports fall approximately 3 days ago with subsequent pain to the right hip. The patient continued to have pain at home and was brought to the emergency room, where he had x-ray that demonstrated displaced right proximal femur fracture. Past Medical History: Includes hypertension , alcoholism, history of hydradenitis suppurativa. The patient has had multiple falls over the past 2 years with history of right proximal humerus fracture as well as lumbar and thoracic spine fractures. He denies any pain in his back at this time, but he does report chronic pain in the back. He denied any musculoskeletal complaints at this time. He reports having a large nasal mass over the last one and a half years that had not been removed and that is growing in size. Past Surgical History: Includes multiple I and D's. Social History: Reports tobacco and alcohol use. Lives at home. Family History: Reviewed, noncontributory. Physical Examination: General: No apparent distress. HEENT: Normocephalic, atraumatic. Neck: Supple. Cardiovascular: Brisk cap refill to all digits. Chest: Nonlabored breathing. Abdomen: Nondistended. Psychiatric: Responds to exam. Musculoskeletal: Bilateral upper extremities, functional range of motion without pain. No gross deformities. No obvious dislocations. Left lower extremity, functional range of motion without pain. No gross deformities. No obvious dislocations. Right lower extremity, tenderness to palpation over the proximal femur. Pain with range of motion in the right hip. No tenderness over the knee, tibia, or ankle. Sensation grossly intact from the dorsal and plantar foot. X-rays: X-rays demonstrated a right basicervical proximal femur fracture with displacement. Assessment And Plan: Graham is a 64-year-old male with a right proximal femur fracture. I discussed with the patient at length the diagnosis as well as treatment plan. Given his unstable fracture pattern, we will proceed with surgical fixation including intramedullary fixation. Risks and benefits associated with the procedure were discussed with the patient at length and he expressed understanding. We will await medical and cardiac clearance prior to surgery. The patient will be in the hospital postoperatively for pain control as well as physical therapy to aid with mobilization. CV/MODL Voice ID: [id number] Report ID: [id number] MTDD
--- NOTE | 2024-11-01 10:28 | P.PN ---
Date of Service: 11/01/24 Subjective No acute changes overnight Pt stated to admission RN that he chooses to change his code status to DNR Review of Systems 10-point ROS is otherwise unremarkable General: Unremarkable Eyes: Unremarkable ENT: Unremarkable Respiratory: Unremarkable Cardiovascular: Unremarkable Gastrointestinal: Unremarkable Genitourinary: Unremarkable Musculoskeletal: As per HPI Integumentary: Unremarkable Neurological: As per HPI Lymphatics: Unremarkable Physical Examination - Physical Exam General: Alert, In no apparent distress, Oriented x3 HEENT: Atraumatic, Other (bulbous nose without nares visible) Neck: Supple Respiratory: Normal air movement, Other (via open mouth) Cardiovascular: No edema, Regular rate/rhythm, Gallops, Systolic murmur Capillary refill: <2 Seconds Gastrointestinal: Hepatosplenomegaly, Tenderness Musculoskeletal: No clubbing, No swelling, Tenderness (Right femur), Other (Right lower extremity shortened and externally rotated, pulses equal and +2 bilaterally) Integumentary: Other Neurological: Normal speech Lymphatics: No axilla or inguinal lymphadenopathy, Other (Prior hiradenitis sites) External genitalia: Deferred Rectal: Deferred Assessment and Plan - Plan Multiple falls secondary to alcohol abuse Alcohol withdrawal protocol Cessation recommended Fall precautions Imaging of brain, C-spine, T-spine prior to admission Monitor H&H Right proximal femur fracture secondary to #1 Neurochecks every 4, neurovascular checks Q4, pain control Consult Dr. Díaz - Per ED provider AHA diet until midnight of surgical procedure Heart murmur with possible syncope probably secondary to holiday secondary to #1 Cardiology consult for surgical clearance - Dr. Mitchell cleared pt for surgery [employer] CPK Monitor INR Constipation Lactulose as needed Tobacco abuse Cessation recommended GI and VTE prophylaxis Protonix/SCDs or teds - Advance Directives Does patient have a Living Will: No Does patient have a Durable POA for Healthcare: No - Code Status/Comfort Care Code Status Assessed: DNR Critical Care: No
--- NOTE | 2024-11-01 12:42 | P.CNS ---
Date of Consult: 11/01/24 Chief Complaint: s/p fall with right hip fracture History of Present Illness: Patient with PMH of tobacco and ETOH abuse, presented with fall, mechanical and fracture to his humerus, cardiology consult was requested for preoperative clearance, patient is not that active, but denies chest pain, no SOB, no palpitations, no syncope. Allergies No Known Allergies Allergy (Verified 01/27/16 10:07) Home medications list reviewed: Yes Home Medications: Doxycycline Hyclate 100 mg PO BID 7 Days #14 tab 07/10/22 Folic Acid 1 mg PO DAILY #30 tab 07/10/22 Hydrocodone 5/APAP 325 [[place] 5/325] 1 tab PO Q6H PRN 3 Days #10 tab 07/10/22 Magnesium Oxide [Mag 0X*] 400 mg PO BID 07/10/22 Thiamine HCl [Vitamin B-1*] 100 mg PO DAILY #30 tab 07/10/22 - Past Medical/Surgical History Diabetic: No -: Hidradenitis Suppurativa -: Hypertension -: Alcoholism -: Slipped discs in back -: multiple surgical I&D areas Psychosocial/ Personal History: Patient lives at home with significant other. He has a daughter. - Social History Smoking Status: Current every day smoker Alcohol use: Yes CD- Drugs: No Caffeine use: No Place of Residence: Home Review of Systems 10-point ROS is otherwise unremarkable Physical Examination Temp Pulse Resp BP Pulse Ox 97.1 F 82 16 134/74 90 L 11/01/24 08:00 11/01/24 08:00 11/01/24 08:00 11/01/24 08:00 11/01/24 08:00 General: Alert, In no apparent distress HEENT: Atraumatic, PERRLA, Mucous membr. moist/pink, EOMI, Sclerae nonicteric Neck: Supple, 2+ carotid pulse no bruit, No LAD, Without JVD or thyroid abnormality Respiratory: Clear to auscultation bilaterally, Normal air movement Cardiovascular: Regular rate/rhythm, Normal S1 S2 Gastrointestinal: Normal bowel sounds, No tenderness Musculoskeletal: No tenderness Integumentary: No rashes Neurological: Normal gait, Normal speech, Normal tone, Normal affect Lymphatics: No axilla or inguinal lymphadenopathy Laboratory Data (last 24 hrs) 10/31/24 10:42 Total Bilirubin 2.8 H AST 48 H ALT 26 Alkaline Phosphatase 148 H - Problems (1) Encounter for pre-operative cardiovascular clearance Current Visit: Yes Status: Acute Plan: EKG reviewed with no significant ST-T wave changes, although patient is not that active but there is no active chest pain, no arrhythmia or signs of valvular abnormalities or heart failure on exam. explained to patient and family in details that any cardiac work up will delay surgery and they want to proceed with surgery. No further cardiac work up needed prior to surgery Patient is cleared as Intermediate cardiac risk for surgery will continue to follow after surgery.
[2024-11-01] MEDS ORDERED: FENTANYL CITR 100 MCG/2 ML ONE (12:51)
[2024-11-01] MEDS ORDERED: MIDAZOLAM HCL 2 MG/2 ML INJ ONE (12:51)
[2024-11-01] MEDS ORDERED: ONDANSETRON 4 MG/2 ML VIAL ONE (12:52)
[2024-11-01] MEDS ORDERED: KETOROLAC 30 MG/ML INJ ONE (12:52)
[2024-11-01] MEDS ORDERED: ETOMIDATE 20 MG/10 ML VIAL IV ONE (12:53)
[2024-11-01] MEDS ORDERED: dexAMETHasone 4 MG/ML VIAL ONE (12:53)
[2024-11-01] MEDS ORDERED: NA CHLORIDE 0.9% 0 ML ONE (13:14)
[2024-11-01] MEDS ORDERED: Ringers Lactate 1,000 ML IV ONE (13:16)
[2024-11-01] MEDS: CEFAZOLIN SODIUM 2 GM/VIAL ONE (14:18)
[2024-11-01] MEDS: VANCOMYCIN 1 GM/VIAL ONE (14:22)
[2024-11-01] MEDS: TRANEXAMIC ACID 1,000 MG/10 ML VIAL IV ONE (14:24)
[2024-11-01] MEDS: Ringers Lactate 1,000 ML IV ONE (15:00)
--- NOTE | 2024-11-01 15:39 | P.BOP ---
Preoperative diagnosis: right intertrochanteric femur fracture Postoperative diagnosis: Same Primary procedure: Cephalomedullary fixation of right intertrochanteric femur fracture Rn Mds Coordinator: NONE,NONE Estimated blood loss: 75 cc Specimen: None Findings: See dictation Anesthesia: General Complications: None Implants: Biomet Lin affixus 11 x 180 mm in 130 degree nail; 100 mm lag screw Fluids & blood products: Per anesthesia record Transferred to: Recovery Room Condition: Good
[2024-11-01] MEDS ORDERED: TRAMADOL HCL 50 MG TAB PO PRN (15:44)
[2024-11-01] MEDS ORDERED: ACETAMINOPHEN 325 MG TABLET PO PRN (15:44)
--- NOTE | 2024-11-01 16:28 | RAD REPORT ---
EXAMINATION: XR RIGHT HIP CLINICAL INDICATION: . s/p right hip nail RIGHT TECHNIQUE: Multiple views of the right hip were obtained. COMPARISON: 10/31/2024 FINDINGS: Proximal right femoral nail has been placed. Anatomic alignment noted. Skin elijah seen l aterally.
[2024-11-01 16:29] LABS: Hematocrit 43.2 % (39.6-49.0); Hemoglobin 14.8 g/dL (13.6-17.9)
[2024-11-01] MEDS: CEFAZOLIN SODIUM 2 GM in NA CHLORIDE 0.9% 100 ML IVPB SCH (17:34)
--- NOTE | 2024-11-01 19:40 | RAD REPORT ---
EXAM: Fluoroscopy use, Hip in OR Right 2 View HISTORY: HIP NAILING RIGHT COMPARISON: None FINDINGS: Multiple images were sent to PACS, during a fluoroscopically guided procedure. No radiologi st was involved in protocoling or performance of the study, and no radiologist was present for the duration of the procedure. No interpretation of the saved images will be provided. Total fluoroscopy time: 0.7 minutes. IMPRESSION: Documentation of fluoroscopy use as above.
[2024-11-01] MEDS: VANCOMYCIN 1 GM in NA CHLORIDE 0.9% 250 ML IVPB SCH (20:44)
--- NOTE | 2024-11-01 22:16 | OP ---
Date of Procedure: 11/01/2024 Surgeon: Edson Díaz MD Preoperative Diagnosis: Right intertrochanteric femur fracture. Postoperative Diagnosis: Right intertrochanteric femur fracture. Procedure Performed: Cephalomedullary fixation of right intertrochanteric femur fracture. Anesthesia: General LMA. Fluids: Per Anesthesia record. Estimated Blood Loss: 25 cc. Complications: None. Implants: Biomet Lin Affixus nail, 11 x 180 mm, 130-degree nail with 100 mm lag screw and 80 mm a nti-rotational screw. Indication For Procedure: Graham is a 64-year-old male who presented to the ER after sustaining a fal l with subsequent pain to the right hip. X-rays demonstrated a displaced right intertrochanteric fem ur fracture at the base of the femoral neck consistent with a basicervical type fracture pattern. I discussed with the patient and his at length the diagnosis as well as treatment options. Given the displaced fracture and the fracture pattern, I elected to proceed with cephalomedullary fixation of the right intertrochanteric femur fracture. Description Of Procedure: After informed consent was obtained, the patient was identified in the pre operative holding area. The right lower extremity was marked. The patient was then brought back to the operative room, transferred to the operating table in supine fashion, placed under general LMA an esthesia. The patient was placed on the fracture table with his extremities well padded. The right lower extremity was manipulated on the fracture table, and fluoroscopy was used to ensure proper redu ction of the fracture. Once fracture was reduced, the right lower extremity was prepped and draped i n usual sterile fashion. A time-out was initiated. The correct patient and procedure were confirmed and identified. The patient did receive his preoperative prophylactic antibiotics. Approximately, a 5 cm longitudinal incision was made just proximal to the greater trochanter. Dissection was taken down through the tensor fascia cm. A guide pin was then placed on the tip of the greater trochante r and down the femoral canal in an antegrade fashion. Proper positioning was confirmed using fluoros copy. Anterior reamer was placed over the guide pin, followed by a ball-tipped guidewire down the fe moral canal to the distal femur. The femoral canal was then reamed in 1 mm increments starting at 8 mm reamer to a 13 mm reamer with good fit. At that point, an 11 mm x 180 mm femoral nail was selecte d with a 130-degree neck angle as calculated using preoperative imaging. A guide pin was then placed down over the lateral hip into the center-center position on the femoral head, confirming the locati on was femoral with fluoroscopy. A second guide pin was then placed just superior to that pin in the superior aspect of the femoral head and neck for anti-rotation purposes. The center-center pin was measured and a size 100 mm lag screw was selected. A 100 mm lag screw was placed followed by placeme nt of an 80 mm anti-rotational screw. Next, fluoroscopy was used to confirm proper positioning. Usi ng the implant jig, a single interlocking screw was placed in distal static position. It was placed in bicortical manner. The wounds were then irrigated thoroughly with normal saline. The femoral imp lant was locked into position and the jig was removed. The deep tissue was approximated using 0 Vicr yl. Subcutaneous tissue was approximated using a 2-0 Vicryl. Skin was approximated using elijah. Sterile dressings were applied. The patient was brought off the fracture table and placed back onto his bed in supine position without complication. Postoperative Plan: The patient will be touchdown weightbearing to the right lower extremity for the first 6 weeks. He will follow up in my clinic in 2 weeks for wound check and staple removal. CV/MODL Voice ID: [id number] Report ID: [id number]
[2024-11-02 04:49] LABS: Absolute Lymphocytes (CBC) 0.5 K/uL (0.7-4.9); Absolute Monocytes 0.6 K/uL (0.1-1.3); Absolute Neutrophil 7.4 K/uL (1.8-8.0); Basophils % 0.5 % (0-1.3); Hematocrit 37.3 % (39.6-49.0); Hemoglobin 12.6 g/dL (13.6-17.9); Lymphocytes % 6.4 % (15.3-44.8); MCH 38.2 pg (27.0-35.0); MCHC 33.8 g/dL (32.0-36.0); MCV 113.2 fL (80-100); MPV 8.4 fL (7.6-11.3); Monocytes % 6.6 % (3.3-12.3); Neutrophils % 86.5 % (41.7-73.7); Platelets 119 thou/uL (152-406); Red Cell Distribution Width 14.7 % (12.1-15.2)
[2024-11-02 04:55] LABS: PT Prothrombin Time 14.9 SECONDS (9.4-12.5); Protime INR 1.34
[2024-11-02 05:09] LABS: Albumin 1.8 g/dL (3.4-5.0); Albumin/Globulin Ratio 0.4 (1.1-1.8); Anion Gap 6.9 mEq/L (5.0-15.0); Bilirubin Total 1.9 mg/dL (0.2-1.0); Globulin 4.6 g/dL (2.3-3.5); Magnesium 1.7 mg/dL (1.6-2.4); Phosphorus 2.5 mg/dL (2.5-4.9); Potassium 3.9 mEq/L (3.5-5.1); Protein, Total 6.4 g/dL (6.4-8.2)
[2024-11-02] MEDS: NA CHLORIDE 0.9% 500 ML IV ONE (05:31)
[2024-11-02] MEDS ORDERED: FLUMAZENIL 0.1 MG/ML (5 mL VIAL) IV PRN (07:32)
[2024-11-02] MEDS ORDERED: LORAZEPAM 0.5 MG TABLET PO PRN (07:34)
[2024-11-02] MEDS ORDERED: LORazepam 2 MG/ML VIAL IV PRN (07:35)
[2024-11-02] MEDS: FOLIC ACID 1 MG TABLET PO SCH (08:11)
[2024-11-02] MEDS: chlordiazePOXIDE HCl 25 MG CAP PO SCH (08:11)
[2024-11-02] MEDS: POTASSIUM CL SA 10 MEQ TAB PO ONE (08:11)
[2024-11-02] MEDS: THIAMINE HCL 100 MG TABLET PO SCH (08:11)
--- NOTE | 2024-11-02 10:41 | P.PN ---
Subjective Date of Service: 11/02/24 Chief Complaint: s/p fall with right hip fracture No complaints overnight, pain controlled as needed analgesia Review of Systems 10-point ROS is otherwise unremarkable General: As per HPI Physical Examination - Vital Signs Temperature: 97.5 F Blood Pressure: 96/70 Pulse: 82 Respirations: 16 Pulse Ox (%): 93 - Physical Exam General: Alert, In no apparent distress, Oriented x3 HEENT: Other (Moderate to severe erythema, edematous rhinophyma) Neck: Supple, 2+ carotid pulse no bruit Respiratory: Clear to auscultation bilaterally, Normal air movement Cardiovascular: No edema, Normal pulses, Regular rate/rhythm Capillary refill: <2 Seconds Gastrointestinal: Normal bowel sounds, Other (Mild abdominal tenderness), Splenomegaly Musculoskeletal: Other (Unsteady gait, right hip fracture, right hip surgical dressing dry and intact) Integumentary: Other (Moderate to severe nasal erythema, edema) Neurological: Normal speech, Normal strength at 5/5 x4 extr, Sensation intact, Abnormal gait Assessment And Plan - Plan Assessment and Plan - Plan right proximal femur fracture Multiple falls Neurochecks pain control Consult Dr. Díaz 11/01 status post Cephalomedullary fixation of right intertrochanteric femur fracture. Fall precaution, PT eval EtOH abuse Alcohol withdrawal protocol Cessation recommended Fall precautions Imaging of brain, C-spine, T-spine prior to admission Monitor H&H Syncopal episode Cardiology consult for surgical clearance - Dr. Mitchell cleared pt for surgery Telemetry Constipation Lactulose as needed Tobacco abuse Cessation recommended GI and VTE prophylaxis Protonix/SCDs Lovenox - Advance Directives Does patient have a Living Will: No Does patient have a Durable POA for Healthcare: No - Code Status/Comfort Care Code Status Assessed: DNR Critical Care: No Discharge Plan: Other (Inpatient rehab) - Code Status/Comfort Care Code Status: Full Code Critical Care: No Time Spent Managing PTS Care (In Minutes): 35
[2024-11-02] MEDS: MIDODRINE HCL 5 MG TABLET PO PRN (11:59)
[2024-11-02] MEDS: NA CHLORIDE 0.9% 250 ML IV ONE (12:22)
[2024-11-02] MEDS ORDERED: MIDODRINE HCL 5 MG TABLET PO PRN (14:32)
[2024-11-02] MEDS: HYDROCODONE/APAP 7.5/325 MG TAB PO PRN (15:27)
[2024-11-02 22:40] VITALS: O2SAT 95
[2024-11-03 06:29] LABS: Absolute Basophils 0.1 K/uL (0-0.5); Absolute Eosinophils 0.2 K/uL (0-0.5); Absolute Lymphocytes (CBC) 1.6 K/uL (0.7-4.9); Absolute Monocytes 0.5 K/uL (0.1-1.3); Absolute Neutrophil 4.5 K/uL (1.8-8.0); Basophils % 0.8 % (0-1.3); Eosinophils % 3.5 % (0-4.4); Hematocrit 34.8 % (39.6-49.0); Hemoglobin 11.9 g/dL (13.6-17.9); Lymphocytes % 23.5 % (15.3-44.8); MCHC 34.2 g/dL (32.0-36.0); MCV 113.9 fL (80-100); MPV 8.2 fL (7.6-11.3); Monocytes % 7.2 % (3.3-12.3); Nucleated Red Blood Cells % 0.1 % (0-0); PT Prothrombin Time 13.4 SECONDS (9.4-12.5); Platelets 153 thou/uL (152-406); Protime INR 1.2; RBC Red Blood Cell Count 3.05 M/uL (4.33-5.43); Red Cell Distribution Width 14.6 % (12.1-15.2)
[2024-11-03 06:56] LABS: Albumin 1.8 g/dL (3.4-5.0); Albumin/Globulin Ratio 0.4 (1.1-1.8); Anion Gap 4.6 mEq/L (5.0-15.0); Bilirubin Total 1.1 mg/dL (0.2-1.0); Globulin 4.5 g/dL (2.3-3.5); Magnesium 1.9 mg/dL (1.6-2.4); Phosphorus 2.4 mg/dL (2.5-4.9); Potassium 3.6 mEq/L (3.5-5.1); Protein, Total 6.3 g/dL (6.4-8.2)
[2024-11-03] MEDS: POTASSIUM 25 MEQ EFFERV TAB PO ONE (08:40)
[2024-11-03] MEDS ORDERED: ENOXAPARIN 30 MG/0.3 ML SQ SCH (17:00)
--- NOTE | 2024-11-03 17:38 | P.PN ---
Date of Service: 11/03/24 Subjective Chief Complaint: s/p fall with right hip fracture No complaints overnight, pain controlled as needed analgesia Sedated, will DC Librium, Review of Systems 10-point ROS is otherwise unremarkable Physical Examination - Vital Signs Reviewed - Physical Exam General: Alert, In no apparent distress, resting with eyes closed, responds to verbal HEENT: Other (Moderate to severe erythema, edematous rhinophyma) Respiratory: Clear to auscultation bilaterally, Normal air movement Cardiovascular: No edema, Normal pulses, Regular rate/rhythm Capillary refill: <2 Seconds Gastrointestinal: Normal bowel sounds, Other (Mild abdominal tenderness), Splenomegaly Musculoskeletal: Other (Unsteady gait, right hip fracture, right hip surgical dressing dry and intact) Integumentary: Other (Moderate to severe nasal erythema, edema) Neurological: Normal speech, Abnormal gait Assessment And Plan - Plan Assessment and Plan - Plan right proximal femur fracture Multiple falls Neurochecks pain control Consult Dr. Díaz 11/01 status post Cephalomedullary fixation of right intertrochanteric femur fracture. Fall precaution, PT eval Microcytic anemia secondary from alcohol use EtOH abuse Alcohol withdrawal protocol Cessation recommended Fall precautions Imaging of brain, C-spine, T-spine prior to admission Monitor H&H, 11/03 type and cross in the a.m. H&H trending down-no active bleeding 11/03 Librium discontinued because of sedation, Syncopal episode Hypotension Cardiology consult for surgical clearance - Dr. Mitchell cleared pt for surgery Telemetry On midodrine Normal saline 75 x 2 L Constipation Lactulose as needed Tobacco abuse Cessation recommended GI and VTE prophylaxis Protonix/SCDs Lovenox - Advance Directives Does patient have a Living Will: No Does patient have a Durable POA for Healthcare: No - Code Status/Comfort Care Code Status Assessed: DNR Critical Care: No Discharge Plan: Other (Inpatient rehab) - Code Status/Comfort Care Code Status: Full Code Critical Care: No Time Spent Managing PTS Care (In Minutes): 35
[2024-11-03] MEDS: NA CHLORIDE 0.9% 1,000 ML IV SCH (17:46)
[2024-11-04 06:34] LABS: Anion Gap 5.5 mEq/L (5.0-15.0); Potassium 3.5 mEq/L (3.5-5.1)
[2024-11-04] MEDS ORDERED: NA CHLORIDE 0.9% 250 ML IV SCH (08:00)
[2024-11-04] MEDS: KCL 20 MEQ/100 mL IVPB 20 MEQ/100 ML BAG IV SCH (09:36)
[2024-11-04] MEDS: DOCUSATE NA 100 MG CAP PO PRN (09:51)
--- NOTE | 2024-11-04 13:56 | P.DS ---
Admission Date: 10/31/24 Discharge Date: 11/04/24 Disposition: TRANSFER TO INPATIENT REHAB Discharge Condition: FAIR Reason for Admission: s/p fall with right hip fracture Brief History of Present Illness: Mr. Day is a 64-year-old male with a past medical history of here adenitis suppurativa, hypertension, and significant tobacco and EtOH abuse. Over the past 2 years, he has had multiple falls with multiple fractures including a right humerus fracture, T12-L1, L3-L4 compression fractures. He takes no daily medications and denies any allergy to medications. He apparently drinks 1 pint of whiskey daily and smokes 1 pack of cigarettes daily. His significant other states that he did not eat yesterday but drank heavily and then fell onto the tile floor. She states he laid there for about an hour before she could get him closer to the bed and EMS was called. They got him to the bed but he refused transport. Upon waking this morning, he decided to come to the emergency department via EMS secondary to pain and feeling poorly. On exam he was noted to have a shortened and externally rotated right lower extremity and imaging shows a comminuted and mildly displaced proximal right femur fracture. Dr. Díaz was contacted per ED MD and agrees to consult but request cardiology clearance. We will await results of CT head and C-spine (negative for fx, advanced atrophy for age, and "large polypoid nasal mass identified"). and then admit Mr. Day for treatment of his femur fracture with detox/seizure precautions and cardiology consultation. - Physical Exam General: Alert, In no apparent distress, Oriented x3 HEENT: Atraumatic, Other (bulbous nose without nares visible) Neck: Supple Respiratory: Normal air movement, Other (via open mouth) Cardiovascular: No edema, Regular rate/rhythm, Gallops Capillary refill: <2 Seconds Gastrointestinal: Hepatosplenomegaly, Tenderness Musculoskeletal: No clubbing, No swelling, Tenderness (Right femur fixation), Integumentary: Other Neurological: Normal speech Hospital Course: Mr. Day is a 64-year-old male with a past medical history of here adenitis suppurativa, hypertension, and significant tobacco and EtOH abuse. Over the past 2 years, he has had multiple falls with multiple fractures including a right humerus fracture, T12-L1, L3-L4 compression fractures.. He apparently drinks 1 pint of whiskey daily and smokes 1 pack of cigarettes daily. His significant other states that he did not eat yesterday but drank heavily and then fell onto the tile floor. imaging shows a comminuted and mildly displaced proximal right femur fracture. Dr. Díaz was contacted per ED consulted, consulted cardiology for clearance. CT head and C-spine (negative for fx, advanced atrophy for age, and "large polypoid nasal mass identified") Mr. Day was admitted for treatment of his femur fracture with detox/seizure precautions and cardiology consultation. He is status post fixation. plant to discharge to acute inpatient rehab for Physical therapy. Assessment right proximal femur fracture- post fixation, plant to transfer to acute inpatient rehab-(will need lovenox for DVT prophlaxis for 14 days) clarify with Dr Díaz prior to DC) Multiple falls Status post Dr. Díaz 11/01 status post Cephalomedullary fixation of right intertrochanteric femur fracture. Microcytic anemia secondary from alcohol use EtOH abuse librium held due to sedation, hypotention Alcohol withdrawal protocol-Cessation recommended Imaging of brain, C-spine, T-spine prior to admission 11/03 type and cross in the a.m. H&H trending down-no active bleeding 11/03 Librium discontinued because of sedation, Syncopal episode Hypotension On midodrine Cardiology consult for surgical clearance - Dr. Mitchell cleared pt for surgery Constipation-Lactulose as needed Tobacco abuse Cessation educated Continue home medicines as previously prescribed GOAL: Clear understanding of disease process INSTRUCTIONS: Physician Discharge Instructions: to acute in patient rehab for inpatient rehab -Follow up with Dr Díaz after discharge, call office for apt -Follow-up with PCP in 1 to 2 weeks after discharge home -Please call Dr. Staley at [phone] if any questions regarding hospital stay -Please call nursing station at [phone] if any nursing or medication q uestions -Return to the emergency room if symptoms worsen Diet: ADA, low sodium Activity: Fall precautions Vital Signs/Physical Exam: Temp Pulse Resp BP Pulse Ox 98.0 F 72 16 111/63 97 11/04/24 12:00 11/04/24 12:00 11/04/24 12:00 11/04/24 12:00 11/04/24 12:00 Laboratory Data at Discharge: WBC 6.90 thou/uL (4.3-10.9) 12/24/24 05:53 Hgb 11.9 g/dL (13.6-17.9) L 11/03/24 05:53 Hct 34.8 % (39.6-49.0) L 11/03/24 05:53 Plt Count 153 thou/uL (152-406) D 11/03/24 05:53 PT 13.4 SECONDS (9.4-12.5) H 11/03/24 05:53 INR 1.20 11/03/24 05:53 Sodium 139 mEq/L (136-145) 11/04/24 05:55 Potassium 3.5 mEq/L (3.5-5.1) 11/04/24 05:55 BUN 7 mg/dL (7-18) 11/04/24 05:55 Creatinine 0.43 mg/dL (0.70-1.30) L 11/04/24 05:55 Glucose 99 mg/dL (74-106) 11/04/24 05:55 Phosphorus 2.4 mg/dL (2.5-4.9) L 11/03/24 05:53 Magnesium 1.9 mg/dL (1.6-2.4) 11/03/24 05:53 Total Bilirubin 1.1 mg/dL (0.2-1.0) H 11/03/24 05:53 AST 28 U/L (15-37) 11/03/24 05:53 ALT 15 U/L (16-61) L 11/03/24 05:53 Alkaline Phosphatase 100 U/L (45-117) 11/03/24 05:53 Triglycerides 86 mg/dL (<150) 11/01/24 05:54 Cholesterol 113 mg/dL (<200) 11/01/24 05:54 HDL Cholesterol 30 mg/dL (40-60) L 11/01/24 05:54 Cholesterol/HDL Ratio 3.77 11/01/24 05:54 Home Medications: Folic Acid 1 mg PO DAILY #30 tab 07/10/22 Hydrocodone 5/APAP 325 [[place] 5/325*] 1 tab PO Q6H PRN 3 Days #10 tab 07/10/22 Magnesium Oxide [Mag 0X*] 400 mg PO BID 07/10/22 Thiamine HCl [Vitamin B-1*] 100 mg PO DAILY #30 tab 07/10/22 Docusate [Colace Cap*] 200 mg PO DAILY PRN cap 11/04/24 LORazepam [Ativan*] 0.5 mg PO Q8H PRN 30 Days #30 tab 11/04/24 Midodrine HCl [Proamatine*] 10 mg PO TID PRN tab 11/04/24 New Medications: LORazepam [Ativan*] 0.5 mg PO Q8H PRN 30 Days #30 tab PRN Reason: Anxiety Physician Discharge Instructions: PROBLEM: S/P hip surgery - rehab GOAL: Clear understanding of disease process INSTRUCTIONS: Diet: Low sodium Activity: Fall precautions Mr. Day is a 64-year-old male with a past medical history of here adenitis suppurativa, hypertension, and significant tobacco and EtOH abuse. Over the past 2 years, he has had multiple falls with multiple fractures including a right humerus fracture, T12-L1, L3-L4 compression fractures. He takes no daily medications and denies any allergy to medications. He apparently drinks 1 pint of whiskey daily and smokes 1 pack of cigarettes daily. His significant other states that he did not eat yesterday but drank heavily and then fell onto the tile floor. On exam he was noted to have a shortened and externally rotated righ t lower extremity and imaging shows a comminuted and mildly displaced proximal right femur fracture. Dr. Díaz was contacted per ED MD and agrees to consult but request cardiology clearance. We will await results of CT head and C-spine (negative for fx, advanced atrophy for age, and "large polypoid nasal mass identified"). and then admit Mr. Day for treatment of his femur fracture with detox/seizure precautions and cardiology consultation. He is status post fixation. plant to discharge to acute inpatient rehab Assessment right proximal femur fracture- post fixation, plant to transfer to acute inpatient rehab (will need lovenox for DVT prophlaxis for 14 days) clarify with Dr Díaz prior to DC) Multiple falls Status post Dr. Díaz 11/01 status post Cephalomedullary fixation of right intert rochanteric femur fracture. Microcytic anemia secondary from alcohol use EtOH abuse librium held due to sedation, hypotention Alcohol withdrawal protocol-Cessation recommended Imaging of brain, C-spine, T-spine prior to admission 11/03 type and cross in the a.m. H&H trending down-no active bleeding 11/03 Librium discontinued because of sedation, Syncopal episode Hypotension On midodrine Cardiology consult for surgical clearance - Dr. Mitchell cleared pt for surgery Constipation-Lactulose as needed Tobacco abuse Cessation educated Continue home medicines as previously prescribed GOAL: Clear understanding of disease process INSTRUCTIONS: Physician Discharge Instructions: to acute in patient rehab -Follow up with Dr Díaz after discharge -Follow-up with PCP in 1 to 2 weeks -Please call Dr. Staley at [phone] if any questions regarding hospital stay -Please call nursing station at [phone] if any nursing or medication questions -Return to the emergency room if symptoms worsen Diet: ADA, low sodium Activity: Fall precautions Diet: Low sodium Activity: Fall precautions Followup: NONE,NONE [Primary Care Provider] - Edson Díaz MD [ACTIVE - CAN ADMIT] - 1-2 Weeks Time spent managing pt's care (in minutes): 45
[2024-11-04 16:24] VITALS: BP 125/71; TEMP 97.6
--- NOTE | 2024-11-05 05:25 | P.PN ---
Subjective Date of Service: 11/02/24 Chief Complaint: s/p right hip nail Subjective: Improving, Working w/ PT Physical Examination - Vital Signs Temperature: 97.6 F Blood Pressure: 125/71 Pulse: 68 Respirations: 16 Pulse Ox (%): 97 - Physical Exam General: Alert, In no apparent distress Musculoskeletal: Other (Right lower extremity: Dressing clean dry and intact; minimal swelling; neurovascular intact distally) Assessment And Plan - Plan Graham is a 64-year-old male status post right hip nailing postoperative day #1 -PT to mobilize; touchdown weightbearing right lower extremity -Lovenox for DVT prophylaxis -Follow-up in my clinic in 2 weeks for xrays and staple removal
== END 2024-11-04 17:35 | DRG 482 ==
LOC: ER 10:11 → ERHOLD 15:16 → 2ND 16:19
PROVIDERS: ADMIT Internal Medicine; ATTEND Hospitalist
PROC: 30233N1 Transfusion of Nonautologous Red Blood Cells into Peripheral Vein, Percutaneous Approach (ICD-10-PCS; 2024-10-31)
PROC: 0QS606Z Reposition Right Upper Femur with Intramedullary Internal Fixation Device, Open Approach (ICD-10-PCS; principal; 2024-11-01 14:00)
DX: S72.144A Nondisplaced intertrochanteric fracture of right femur, initial encounter for closed fracture (principal); I10 Essential (primary) hypertension; K59.00 Constipation, unspecified; I95.9 Hypotension, unspecified; D50.9 Iron deficiency anemia, unspecified; F10.10 Alcohol abuse, uncomplicated; F17.210 Nicotine dependence, cigarettes, uncomplicated; R01.1 Cardiac murmur, unspecified; R29.6 Repeated falls; Z66 Do not resuscitate; Z91.81 History of falling; Z79.899 Other long term (current) drug therapy; W18.30XA Fall on same level, unspecified, initial encounter; Y93.9 Activity, unspecified; Y99.9 Unspecified external cause status; Y92.003 Bedroom of unspecified non-institutional (private) residence as the place of occurrence of the external cause
CPT/HCPCS: 36415; 70450; 71045; 72125; 72128; 72131; 72192; 80048; 80053; 80061; 80076; 82077; 82550; 82607; 83735; 84100; 84443; 85014; 85018; 85025; 85610; 86850; 86900; 86901; 86920; 94010; 96372; 97110; 97161; 97165; 97530; 99285; J1100; J1650; J2250; J2405; J3010; J3411; J3475; J3480; J7030; J7040; J7050; J7120; Q0162

== ENCOUNTER 2024-11-04 16:13 | Inpatient (IN) | payer OTHER ==
--- OUTSIDE RECORDS SUMMARY | 2024-11-04 17:29 | XMS REPORT | Continuity of Care Document ---
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 with other complicati ons Problem [facility] [id number] Alcoholism Problem Commo n [facility] [id number] Closed fracture of proximal end of right humerus, unspecifie d fracture morphology , initial encounter Problem [facility] [id number] Alcoholic cirrhosis of liver without ascites Problem [facility] [id number] Acquired hypothyroi dism Problem [facility] Social History Social Habit Start Date Stop Date Quantity Comments Source History of Tobacco Use Current Smoker [facility] Sex Assigned At [facility] Smoking Status Start Date Stop Date Source Current Smoker 2022-11-08 00:00:00 [facility] Medications Ordered Medication Name Filled Medication Name Start Date Stop Date Current Medication? Ordering Clinician Indication Dosage Frequency Signature (SIG) Comments Components Source Levothyroxi ne Sodium 25 MCG Levothyroxi ne Sodium 25 MCG 2-0 08-10 00:00: 00 No QD Levothyrox ine Sodium 25 MCG Levothyroxi ne Sodium 25 MCG Levothyroxi ne Sodium 25 MCG 2021-0 08-10 00:00: 00 No QD Levothyrox ine Sodium 25 MCG Levothyroxi ne Sodium 25 MCG Levothyroxi ne Sodium 25 MCG 2021-0 08-10 00:00: 00 No QD Levothyrox ine Sodium 25 MCG Amlodipine Besylate Amlodipine Besylate Yes Bhakti Pendleton 1 tablet [facility] Lisinopril Lisinopril Yes Bhakti Pendleton 1 tablet [facility] Magnesium 300 MG Magnesium 300 MG No 1{capsu le_with _a_meal } QD Magnesium 300 MG Vitamin B-1 Vitamin B-1 No Vi tamin B-1 Lisinopril 20 MG Lisinopril 20 MG No 1{table t} QD Lisinopril 20 MG amLODIPine Besylate 5 MG amLODIPine Besylate 5 MG No 1{table t} QD amLODIPine Besylate 5 MG Roselle Roselle No Roselle Levothyroxi ne Sodium 25 MCG Levothyroxi ne [...] No 1{table t} QD Lisinopril 20 MG Roselle Roselle No Roselle amLODIPine Besylate 5 MG amLODIPine Besylate 5 [...] height 2022-11-08 08:20:00 70 [in_i] Commo n [facility] weight 2022-11-08 08:20:00 190 [lb_av] Comm on [facility] temperature 2022-11-08 08:20:00 97.5 [degF] Com [facility] bmi 2022-11-08 08:20:00 27.26 kg/m2 Comm on [facility] oximetry 2022-11-08 08:20:00 97 % Commo n [facility] respiratory rate 2022-11-08 08:20:00 16 /min [facility] blood pressure systolic 2022-11-08 08:20:00 136 mm[Hg] [facility] blood pressure diastolic 2022-11-08 08:20:00 66 mm[Hg] Common [facility] height 2022-08-22 09:15:00 70 [in_i] Commo n [facility] weight 2022-08-22 09:15:00 190 [lb_av] Comm on [facility] temperature 2022-08-22 09:15:00 97.6 [degF] Com [facility] bmi 2022-08-22 09:15:00 27.26 kg/m2 Comm on [facility] blood pressure systolic 2022-08-22 09:15:00 124 mm[Hg] [facility] blood pressure diastolic 2022-08-22 09:15:00 80 mm[Hg] [facility] blood pressure diastolic 2022-08-10 09:00:00 58 mm[Hg] [facility] height 2022-08-10 09:00:00 70 [in_i] Commo n [facility] weight 2022-08-10 09:00:00 97.1 [lb_av] Com [facility] temperature 2022-08-10 09:00:00 97.1 [degF] Com [facility] bmi 2022-08-10 09:00:00 13.93 kg/m2 Comm on [facility] oximetry 2022-08-10 09:00:00 99 % Commo [facility] respiratory rate 2022-08-10 09:00:00 16 /min [facility] blood pressure systolic 2022-08-10 09:00:00 128 mm[Hg] [facility] height 2022-08-01 09:00:00 71 [in_i] Commo n [facility] weight 2022-08-01 09:00:00 190 [lb_av] Comm on [facility] temperature 2022-08-01 09:00:00 97.1 [degF] Com [facility] bmi 2022-08-01 09:00:00 26.5 kg/m2 Commo n [facility] blood pressure systolic 2022-08-01 09:00:00 120 mm[Hg] [facility] blood pressure diastolic 2022-08-01 09:00:00 70 mm[Hg] [facility] height 2022-07-18 09:15:00 71 [in_i] Commo n [facility] weight 2022-07-18 09:15:00 190 [lb_av] Comm on [facility] temperature 2022-07-18 09:15:00 96.7 [degF] Com mon [facility] bmi 2022-07-18 09:15:00 26.5 kg/m2 Commo n [facility] blood pressure systolic 2022-07-18 09:15:00 112 mm[Hg] [facility] blood pressure diastolic 2022-07-18 09:15:00 71 mm[Hg] [facility] Encounters Start Date/Time End Date/Time Encounter Type Admission Type Attending [facility] Care Department Encounter ID Source 2024-11-02 08:15:00 Outpatient Bhakti Muse [facility] [id number] [facility] 2022-11-06 10:12:00 Outpatient Bhakti Muse [facility] [id number] [facility] 2022-10-25 09:29:00 Outpatient Bhakti Muse [facility] [id number] [facility] 2022-08-23 11:09:00 Outpatient Bhakti Muse [facility]LML[facility] ST[facility] [id number] [facility] 2022-08-22 09:45:00 Outpatient Bhakti Muse [facility] [id number] [facility] 2022-08-10 09:09:00 Outpatient Bhakti Muse [facility] [id number] [facility] 2022-08-08 07:49:00 Outpatient Bhakti Muse [facility]LML[facility] STL[facility] [id number] [facility] 2022-07-18 09:55:00 Outpatient Bhakti Muse [facility]LML[facility] STL[facility] [id number] [facility] 2022-07-12 14:14:00 Outpatient Bhakti Muse [facility] STL[facility] [id number] [facility] 2023-09-13 13:05:35 2023-09-13 13:05:35 Outpatient [facility] [id number] Brock Galan 2023-05-28 15:26:49 2023-05-28 15:26:49 Outpatient [facility] [id number] Brock Galan 2023-05-27 14:20:17 2023-05-27 14:20:17 Outpatient [facility] [id number] Brock Galan 2023-05-20 14:59:42 2023-05-20 14:59:42 Outpatient [facility] [id number] Brock Galan 2023-05-20 14:58:23 2023-05-20 14:58:23 Outpatient [facility] [id number] Brock Galan 2022-12-10 11:14:50 2022-12-10 11:14:50 Outpatient [facility] [id number] Brock Galan 2022-11-08 00:00:00 2022-11-08 00:00:00 OFFICE VISIT EST PT LEVEL 3 [facility] [id number] [facility] 2022-08-22 00:00:00 2022-08-22 00:00:00 OFFICE VISIT EST PT LEVEL 3 [facility] [id number] [facility] 2022-08-10 00:00:00 2022-08-10 00:00:00 OFFICE VISIT NEW PT LEVEL 3 [facility] [id number] [facility] 2022-08-01 00:00:00 2022-08-01 00:00:00 OFFICE VISIT EST PT LEVEL 3 [facility] [id number] [facility] 2022-07-18 00:00:00 2022-07-18 00:00:00 OFFICE VISIT NEW PT LEVEL 3 [facility] [id number] [facility] 2020-04-25 13:20:00 2020-04-25 13:20:00 Outpatient [facility] Medicine [facility] [id number] [facility] 2018-04-09 13:15:00 2018-04-09 13:15:00 Outpatient [facility] Medicine [facility] [id number] [facility] Results Test Description Test Time Test Comments Results Result Co mments Source BILIRUBIN, [id number] 06:03:41* Test Item Value Reference Range Interpretation Comme nts BILIRUBIN, DIRECT (test code = 2021) 1.0 MG/DL 0.0-0.3 H PROTHROMBIN TIME (PT)2023-05-28 03:13:32* Test Item Value Reference Range Interpretation Comme nts PROTHROMBIN TIME (PT) (test code = 1401) 14.5 SECONDS 12.5-14.7 INR (test code = 35626) 1.1 SEE BELOW CURRENT RECOMMENDATIONS ARE FOR AN INR OF 2.0-3.0 FOR ALL PATIENTS ON VITAMIN K ANTAGONISTS, EXCEPT THOSE WITH PROSTHETIC HEART VALVES, FOR WHOM INR OF 2.5-3.5 IS RECOMMENDED. HEMOGLOBIN [id number] 05:42:49* Test Item Value Reference Range Interpretation Comme nts HEMOGLOBIN A1c (test code = 34870) 4.8 % 4.2-5.6 CBC W/AUTO DIFF WITH [id number] 04:20:04* Test Item Value Reference Range Interpretation [...] 0.00-0.10 ABS NUCLEATED RBCS (test code = 72124) 0.00 K/UL 0.00-0.11 UNLESS OTHER PARNELL INDICATED, ALL TESTING PERFORMED AT [facility] [address] [place] [address] DIETETIC ASSISTANT: BROOKE GAR M.D. CLIA NUMBER [id number] [facility] [place]. [id number] COMPREHENSIVE METABOLIC [id number] 03:29:19* Test Item Value Reference Range Interpretation Comme nts GLUCOSE (test code = 2217) 96 MG/DL 70-99 BUN (test code = 2208) 7 MG/DL 8-23 L CREATININE (test code = 2214) 0.73 MG/DL 0.80-1.40 L eGFR (2020 CKD-EPI) (test code = 05952) 102 ML/MIN/1.73 >60 CALC BUN/CREAT (test code = 2235) 10 RATIO 6-28 SODIUM (test code = 2231) 132 MEQ/L 133-146 L POTASSIUM (test code = 2228) 3.9 MEQ/L 3.5-5.4 CHLORIDE (test code = 2215) 94 MEQ/L 95-107 L CARBON DIOXIDE (test code = 2206) 26 MEQ/L 19-31 CALCIUM (test code = 2209) 9.5 MG/DL 8.5-10.5 PROTEIN, TOTAL (test code = 222) 8.4 G/DL 6.1-8.3 H ALBUMIN (test code = 2201) 3.3 G/DL 3.5-5.2 L CALC GLOBULIN (test code = 2240) 5.1 G/DL 1.9-3.7 H CALC A/G RATIO (test code = 2234) 0.6 RATIO 1.0-2.6 L BILIRUBIN, TOTAL (test code = 2207) 3.2 MG/DL See_Comment H [Automated me ssage] The system which generated this result transmitted reference range: <=1.2. The reference range was not used to interpret this result as normal/abnormal. ALKALINE PHOSPHATASE (test code = 4) 159 U/L 40-123 H AST (test code = 2218) 61 U/L 9-50 H ALT (test code = 2219) 25 U/L 5-50 LIPID [id number] 03:29:19* Test Item Value Reference Range Interpretation [...] SPECIMENS. FOR MOREINFORMATION, SEE CLIENT ANNOUNCEMENT AT [email or web address] RATIO LDL/HDL (test code = 2238) 2.83 RATIO <3.55
[2024-11-04 17:43] VITALS: BMI 23.7
[2024-11-04] MEDS ORDERED: LORAZEPAM 0.5 MG TABLET PO PRN (17:59)
[2024-11-04] MEDS: MELATONIN 3 MG TABLET PO PRN (19:43)
[2024-11-04] MEDS: DOCUSATE NA 100 MG CAP PO PRN (19:43)
[2024-11-04] MEDS: GABAPENTIN 100 MG CAP PO SCH (19:43)
[2024-11-04] MEDS: MAGNESIUM OXIDE 400 MG TAB PO SCH (19:44)
[2024-11-04 21:40] LABS: Specific Gravity 1.015 (1.005-1.030); Sqamous Epithelial None Seen /HPF (None Seen); Urine Bacteria None Seen /HPF (<20); Urine Bilirubin NEGATIVE (Negative); Urine Blood Negative (Negative); Urine Clarity Clear (Clear); Urine Color Yellow (Yellow); Urine Culture Reflex Order NOT NEEDED; Urine Glucose NEGATIVE (Negative); Urine Ketones NEGATIVE (Negative); Urine Micro Reflex YN NO BILL MICROSCOPIC; Urine Mucus Slight /HPF (None Seen); Urine Nitrite NEGATIVE (Negative); Urine Protein NEGATIVE (Negative); Urine RBC <5 /HPF (None Seen); Urine Urobilinogen 1+ (Normal); Urine WBC <5 /HPF (<5)
[2024-11-05 06:24] LABS: Absolute Basophils 0.1 K/uL (0-0.5); Absolute Eosinophils 0.3 K/uL (0-0.5); Absolute Lymphocytes (CBC) 1.3 K/uL (0.7-4.9); Absolute Monocytes 0.6 K/uL (0.1-1.3); Absolute Neutrophil 2.8 K/uL (1.8-8.0); Hematocrit 35.7 % (39.6-49.0); Hemoglobin 12.4 g/dL (13.6-17.9); Lymphocytes % 26.2 % (15.3-44.8); MCH 38.9 pg (27.0-35.0); MCHC 34.7 g/dL (32.0-36.0); MCV 112.1 fL (80-100); MPV 8.8 fL (7.6-11.3); Neutrophils % 55.8 % (41.7-73.7); Nucleated Red Blood Cells % 0.4 % (0-0); Platelets 136 thou/uL (152-406); RBC Red Blood Cell Count 3.18 M/uL (4.33-5.43); Red Cell Distribution Width 14.5 % (12.1-15.2)
[2024-11-05 06:39] LABS: Albumin 1.8 g/dL (3.4-5.0); Anion Gap 8.6 mEq/L (5.0-15.0); Magnesium 1.6 mg/dL (1.6-2.4); Potassium 3.6 mEq/L (3.5-5.1); Prealbumin 7.6 mg/dL (20-40)
[2024-11-05 08:15] LABS: Blood Morphology Comment NOTED (NOT SEEN); Macrocytosis 2+; Platelet Estimate DECR; Rouleau NOTED; White Blood Cell Scan OK (OK)
[2024-11-05] MEDS: ENOXAPARIN 40 MG/0.4 ML SQ SCH (09:55)
[2024-11-05] MEDS: THIAMINE HCL 100 MG TABLET PO SCH (09:55)
[2024-11-05] MEDS: FOLIC ACID 1 MG TABLET PO SCH (09:56)
[2024-11-05] MEDS ORDERED: MAGNESIUM HYDROXIDE 8% 30 ML PO PRN (14:38)
[2024-11-05] MEDS: CYANOCOBALAMIN 1000MCG/ML INJ IM ONE (15:18)
[2024-11-05] MEDS: ENSURE SURGERY 237 ML CAN PO SCH (20:00)
[2024-11-05] MEDS: SENOSIDES 8.6 MG TAB PO SCH (20:38)
[2024-11-05] MEDS: GABAPENTIN 300 MG CAP PO SCH (20:38)
--- NOTE | 2024-11-06 04:08 | HP ---
Date of Admission: 11/04/2024 Time Of Service: 1 p.m. Chief Complaint: "I fell and broke my hip." History Of Present Illness: Mr. Day is a 64-year-old patient with hypertension, history of alcohol ism, I and D after his surgery, who was drinking alcohol heavily and fell on October 30. He hit t he floor and he had to be helped up to his bed, and at that point despite having pain in his hip refu sed EMS transport to emergency department. The next day, on the , woke up with increasing pain i n the hips and was taken to the emergency room, where evaluation showed that he has apparently had mu ltiple falls from prior healed fractures in addition to a right proximal femur fracture. Also found to be constipated, had microcytic anemia, of course tobacco abuse, and hypotension. He received IV h ydration and had anemia addressed. Medical issues stabilized and was evaluated by the orthopedic ser vice and found to be appropriate candidate for surgery, and he had a cephalomedullary dara fixation of the right intertrochanteric fracture after again cleared by Cardiology Medicine. Subsequently evalu ated by Physical and Occupational Therapy Service. Found to have significant pain, which was control led. Alcohol withdrawal also controlled with alcohol withdrawal protocol. Imaging of the spine show ed multiple chronic compression fractures as noted above. He did again have medical conditions manag ed and because of his history of falls, longstanding alcohol abuse, and of course acute surgery and f racture, he is determined to be an appropriate candidate for aggressive inpatient rehabilitation, whe re he will receive physical, occupational, and speech therapy along with his alcohol withdrawal proph ylaxis. His hypotension and electrolyte derangements will also be addressed while he is in rehab. P rior to his fall, he was living independently in a trailer, requiring no assistive device for mobiliz ation. Now he requires maximal assistance for mobilization, activities of daily living, and has a to uchdown weightbearing status to the right lower extremity and is therefore admitted to the inpatient rehabilitation unit to help him return to his prior level of functioning and decrease his risk of catherine ospitalization as he manages his touchdown weightbearing status. Past Medical History: Includes hidradenitis suppurativa, hypertension, alcoholism, and multiple surg eries with I and Ds in addition to the multiple lumbar compression fractures. Allergies: NO KNOWN DRUG ALLERGIES. Imaging: Chest x-ray on 10/31, no acute cardiopulmonary disease. Thoracic spine CT scan on 10/31, n ondisplaced fracture involving the anterior wall and superior endplate of T11, nondisplaced. Again, no evidence of extension in the posterior elements. This fracture pattern is consistent with the pat ient's diffuse idiopathic skeletal hyperostosis or DISH syndrome. Hip x-ray on 10/31, right proximal femur fracture, mildly displaced. Due to alignment of the fracture with overlapping anatomy, cannot definitively distinguish between femoral neck or intertrochanteric, although femoral neck is favored . CT would be better. CT of the pelvic region shows comminuted and mildly displaced right femoral f racture, which features more indicative of intertrochanteric fracture rather than basicervical fractu re. There is no dislocation. Lumbar spine CT scan on 10/31, compression fractures of the lower thor acic and lumbar spine, subacute or chronic. CT scan of the cervical spine: No acute proc esses, no fractures. X-ray of the hip on 11/01, proximal right femoral nail was in place. Anatomic alignment noted. Skin elijah are seen laterally. Allergies: NO KNOWN DRUG ALLERGIES. Medications: Vitamin B12 1000 mcg daily, Colace 200 mg daily, Lovenox 40 mg subcutaneously daily, fo lic acid 1 mg daily, gabapentin 300 mg at night and 100 mg in the morning, [place] 5/325 one tablet kim ry 6 hours as needed, lorazepam 0.5 mg every 8 hours, thiamine 100 mg daily, Senokot 8.6 mg at bedtim e, midodrine 10 mg 3 times daily, melatonin 3 mg at bedtime, magnesium oxide 400 mg twice daily, milk of magnesia 30 mL daily. Laboratory Studies: White blood cell count 5.1, hemoglobin 12.4, platelets 136. Sodium 135, potassi um 3.6, chloride 104, carbon dioxide 26, BUN 6, creatinine 0.41, glucose 113. Calcium 8.5, magnesium 1.6, albumin 1.8, prealbumin 7.6. Urinalysis shows pH 8, urobilinogen +1, otherwise negative. A sm ear scan is okay. No abnormalities there. Family History: Noncontributory. Social History: The patient drinks alcohol heavily. Lives independently. Smoked in the past. No c urrent IV drug use. Family History: Noncontributory. Review of Systems: He reports back pain from the fractures, right hip pain from his surgery, and has mild sleepiness or fatigue. Some difficulty with appetite/poor appetite. Again, mild myalgias and arthralgias. No anamika h. No active psychiatric issues. No active evidence of alcohol withdrawal currently. Current Level Of Functioning: Currently, eating is at setup assistance. Grooming, setup assistance. Maximum assistance for bathing. Upper body dressing, moderate assistance. Lower body and donning and doffing footwear, maximum assistance. Toileting, maximum assistance. Tub and shower transfer, m aximum assistance. Ambulation, 4 steps with a rolling walker with maximum assistance. Again, he und erstood/comprehended issues without cues. Expression was without any difficulty. Physical Examination: Vital Signs: Blood pressure 115/67, pulse 76, respiratory rate 20, temperature 98, oxygen saturation 95%. General: Again, Mr. Day is resting comfortably. He is in no significant distress. HEENT: He is normocephalic, atraumatic. Sclerae anicteric. Oropharynx is moist. Neck: Supple. Chest: Clear. Musculoskeletal: Again, does report some pain in the right hip and back area where he has multiple f ractures. 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 Abdomen: Soft. Extremities: Show no unexpected findings post surgery on the right. No significant edema, cyanosis, or clubbing. Neurological: He has no focal deficits. Diffuse weakness, more on the right, likely due to his rece nt surgery and pain in the hip and his back pain. Rehab And Medical Assessment: Mr. Day is a 64-year-old patient, admitted to the rehabilitation [facility], [place] with an impairment category of 07, fracture of lower extremity. Impairment group code is 08.11, un ilateral hip fracture. Etiologic diagnosis: Intertrochanteric fracture of the right femur. Additio nal diagnoses: Alcoholism with risk of withdrawal, hypotension, anemia, mild malnutrition, multiple lumbar vertebral fractures from T12-L1 and L3-L4, decreased mobility, decreased physical functioning, also tobacco abuse, again alcoholism, microcytic anemia in addition to the hidradenitis suppurativa. Plan: He will have physical, occupational, and speech therapy for 3.5 hours, 5 of 7 days. With his blood pressure, we will have blood pressure support with midodrine continued at 10 mg 3 times daily. May hold if systolic blood pressure is less than 100. The Ativan for alcohol withdrawal is present. He has thiamine for alcohol withdrawal, Senokot S for constipation, melatonin for insomnia, magnesi um oxide for muscle spasms, gabapentin for neuropathic pain possibly related to alcohol-related perip heral neuropathy. He has Ensure for malnutrition, Lovenox for DVT prophylaxis, vitamin B12 for energ y, Bellvue for pain. Comorbidities That Are Impacting Rehabilitation: Of course, given his history of heavy chronic alcoh ol use, he is at risk for alcohol withdrawal. Alcohol withdrawal prophylaxis will be present. Watch for blood pressure changes. Heart rate and temperature changes that are unusual or very quick dumont ing. Will institute Librium therapy IV if need be, and telemetry monitoring or ICU admission. He hartman s had multiple falls in the past but it is not necessarily related to. He has peripheral neuropathy, which is likely secondary to longstanding alcoholism. He will ambulate with a gait belt, wheelchair , and tow as he uses a rolling walker and nonweightbearing to be maintained. His additional issues a re other chronic issues that are not likely to negatively impact his rehabilitation, but may delay hi s discharge. Rehab Specific Plan: Mr. Day will have physical, occupational, and speech therapy for 3.5 hours, 5 of 7 days to improve his ability to transfer from bed to chair to toilet to the shower to be able to mobilize household distances over 250 feet if possible with a wheelchair and walker up and down 10 s teps with bilateral handrails, maintaining weightbearing status and to perform his activities of ez y living, do upper and lower body dressing, donning and doffing footwear, and maintain his cognitive functioning enough to manage his medications properly and to have good safety awareness as he transfe rs and to minimize his risk of falling and rehospitalization. Mr. Day has a good understanding of the process of admission to the inpatient rehabilitation facili and how he will benefit from physical, occupational, and speech therapy. He will have 24 hours a day, 7 days a week skilled rehabilitation nursing, daily physician evaluation and management, and [facility] evaluation and management for discharge planning, home equipment, and for continued ther apy following his discharge. Barriers To Discharge: Given Mr. Day's history of heavy alcohol use, he may be at risk of alcohol withdrawal. Even after discharge, he may extend his stay potentially into an alcohol treatment progr am or into [facility] if he is unable to get back home and make safe decisions. Also at risk of infection from his falls and likely malnutrition related to alcoholism, and he is receiving currentl y protein supplementation and iron supplementation to help mitigate against this. Code Status: Full Code. Prognosis: Overall fair. Rehab Specific Goals: 1.Mr. Day will be fully independent in terms of his transfer from bed to a chair to a rolling walk er and to mobilize household distances. 2.He will be independent ambulating 250 feet with a rolling walker up and down 10 steps with bilater al handrails and mobilize wheelchair 250 feet. 3.Independently perform good safe cognitive functioning, decision-making in terms of his dressing of upper and lower body, his safety awareness in terms of risk of falling, especially how to mobilize w ith significant peripheral neuropathy and decreased lower extremities. Speech will help h im with his cognitive functioning as well as decision-making. By signing this document, I acknowledge I personally performed a full physical examination on Mr. Maguire es no later than 24 hours after his admission to the inpatient rehabilitation unit and determined bibiana t he is able to tolerate the above course of treatment at an intensive level for a reasonable period of time. A detailed individualized plan of care for him will be completed by hospital day 4 based on the preadmission screen, history and phy sical, and therapy evaluations. LINDA Voice ID: [id number]
[2024-11-06] MEDS: CYANOCOBALAMIN 1,000 MCG TAB PO SCH (09:33)
[2024-11-06] MEDS: LIDOCAINE 4% PATCH TOP SCH (09:37)
[2024-11-06] MEDS: ENSURE ENLIVE 237 ML CAN PO SCH ×2 (09:37→20:17)
--- NOTE | 2024-11-06 13:47 | P.RH.PN ---
Estimated Length of Stay: 16 Expected Discharge Date: 11/18/24 Discharge Disposition Plan: Home Family Support: Yes Retirement Goal: Mobility, Transfers, Self Care Vital Signs: Last Vital Signs Temp 98.4 F 11/06/24 07:27 Pulse 67 11/06/24 07:27 Resp 16 11/06/24 07:27 BP 128/70 11/06/24 07:27 Pulse Ox 97 11/06/24 07:27 Laboratory: Laboratory Last Values WBC 5.10 thou/uL (4.3-10.9) 11/05/24 05:41 RBC 3.18 M/uL (4.33-5.43) L 11/05/24 05:41 Hgb 12.4 g/dL (13.6-17.9) L 11/05/24 05:41 Hct 35.7 % (39.6-49.0) L 11/05/24 05:41 MCV 112.1 fL (80-100) H 11/05/24 05:41 MCH 38.9 pg (27.0-35.0) H 11/05/24 05:41 MCHC 34.7 g/dL (32.0-36.0) 11/05/24 05:41 RDW 14.5 % (12.1-15.2) 11/05/24 05:41 Plt Count 136 thou/uL (152-406) L 11/05/24 05:41 MPV 8.8 fL (7.6-11.3) 11/05/24 05:41 Plt Distribution Width Cancelled 11/04/24 17:46 Absolute Nucleated RBC Cancelled 11/04/24 17:46 Neutrophils % 55.8 % (41.7-73.7) 11/05/24 05:41 Lymphocytes % 26.2 % (15.3-44.8) 11/05/24 05:41 Monocytes % 12.0 % (3.3-12.3) 11/05/24 05:41 Eosinophils % 5.0 % (0-4.4) H 11/05/24 05:41 Basophils % 1.0 % (0-1.3) 11/05/24 05:41 Nucleated RBC % Cancelled 11/04/24 17:46 Absolute Neutrophils 2.8 K/uL (1.8-8.0) 11/05/24 05:41 Absolute Lymphocytes 1.3 K/uL (0.7-4.9) 11/05/24 05:41 Absolute Monocytes 0.6 K/uL (0.1-1.3) 11/05/24 05:41 Absolute Eosinophils 0.3 K/uL (0-0.5) 11/05/24 05:41 Absolute Basophils 0.1 K/uL (0-0.5) 11/05/24 05:41 Diff Path Review Cancelled 11/04/24 17:46 Platelet Estimate Decr 11/05/24 05:41 Macrocytosis 2+ 11/05/24 05:41 Rouleaux Noted 11/05/24 05:41 Morphology Comment Noted (NOT SEEN) 11/05/24 05:41 Sodium 135 mEq/L (136-145) L 11/05/24 05:41 Potassium 3.6 mEq/L (3.5-5.1) 11/05/24 05:41 Chloride 104 mEq/L (98-107) 11/05/24 05:41 Carbon Dioxide 26 mEq/L (21-32) 11/05/24 05:41 Anion Gap 8.6 mEq/L (5.0-15.0) 11/05/24 05:41 BUN 6 mg/dL (7-18) L 11/05/24 05:41 Creatinine 0.41 mg/dL (0.70-1.30) L 11/05/24 05:41 Est GFR (CKD-EPI) 120 ml/min (=/>90) 11/05/24 05:41 Glucose 113 mg/dL (74-106) H 11/05/24 05:41 Calcium 8.5 mg/dL (8.5-10.1) 11/05/24 05:41 Magnesium 1.6 mg/dL (1.6-2.4) 11/05/24 05:41 Albumin 1.8 g/dL (3.4-5.0) L 11/05/24 05:41 Prealbumin 7.6 mg/dL (20-40) L 11/05/24 05:41 Urine Color Yellow (Yellow) 11/04/24 21:25 Urine Clarity Clear (Clear) 11/04/24 21:25 Urine pH 8.0 (5.0-7.0) H 11/04/24 21:25 Ur Specific [place] 1.015 (1.005-1.030) 11/04/24 21:25 Glucose (UA)(Auto) Negative (Negative) 11/04/24 21: Urine Ketones Negative (Negative) 11/04/24 21: Urine Blood Negative (Negative) 11/04/24: Urine Nitrite Negative (Negative) 11/04/24: Urine Bilirubin Negative (Negative) 11/04/24: Urine Urobilinogen 1+ (Normal) H 11/04/24 21:25 Ur Leukocyte Esterase Negative Mirian/uL (Negative) 11/04/24 21: Urine RBC <5 /HPF (None Seen) 11/04/24: Urine WBC <5 /HPF (<5) 11/04/24: Ur Squamous Epith Cells None seen /HPF (None Seen) 11/04/24: Urine Bacteria None seen /HPF (<20) 11/04/24: Urine Mucus Slight /HPF (None Seen) 11/04/24 21: Urine Culture Reflexed Not needed 11/04/24 21: Urine Total Protein Negative (Negative) 11/04/24 21: Smear Scan Ok (OK) 11/05/24 05:41 Weight: 175 lb Closed Surgical Incision Present: Yes Negative Pressure Wound Therapy Present: No Physician Update: Labs reviewed and are stable. Very low prealbumin 7.6. Max assist for bed mobility and transfers. RW 4 steps and parallel bars also 4 feet. WC 250' with min assist. Dependent with lower body dressing. Max assist for most ADLs. Min assist with oral hygiene. Poor compliance on nonweight bearing. Summary: Patient's care plan and mcc goals have been reviewed and revised as necessary. Please see the Rehabilitation Signature page for all necessary signatures.
[2024-11-06] MEDS: NA CHLORIDE 0.9% 1,000 ML IV SCH (17:39)
[2024-11-06] MEDS ORDERED: TRAMADOL HCL 50 MG TAB PO SCH (20:00)
[2024-11-06] MEDS: PRAMIPEXOLE 0.25 MG TAB PO SCH (20:15)
[2024-11-06] MEDS: MEGESTROL 40 MG TAB PO SCH (20:15)
[2024-11-06] MEDS: MIDODRINE HCL 5 MG TABLET PO PRN (20:15)
[2024-11-06] MEDS: DULOXETINE 20 MG CAP PO SCH (20:16)
[2024-11-06] MEDS: APIXABAN 2.5 MG TABLET PO SCH (20:16)
[2024-11-06] MEDS: DOCUSATE NA/SENNA CONC 1 TAB PO SCH (21:00)
[2024-11-07] MEDS: BISACODYL 10 MG RECTAL SUPP PR PRN (04:28)
[2024-11-07] MEDS: ACETAMINOPHEN 325 MG TABLET PO PRN (07:36)
[2024-11-07] MEDS: HYDROCODONE/APAP 5/325 MG TAB PO PRN (08:49)
[2024-11-07] MEDS: NA CHLORIDE 0.9% 1,000 ML IV SCH (12:26)
--- NOTE | 2024-11-07 15:43 | RAD REPORT ---
EXAM: AP view(s) of the abdomen Abdomen 1 View (KUB) HISTORY: constipation COMPARISON: None FINDINGS: Nonobstructive bowel gas pattern.. Moderate pancolonic stool burden. No suspicious calcifications are seen. No acute osseous abnormality. Partially imaged hardware at the right hip. Other: Atherosclerosis. IMPRESSION: Nonobstructive bowel gas pattern. Moderate colonic stool could reflect constipation in th e appropriate clinical setting.
[2024-11-07] MEDS: MIDODRINE HCL 5 MG TABLET PO SCH (17:34)
[2024-11-08 06:14] LABS: Anion Gap 6.8 mEq/L (5.0-15.0); Magnesium 1.7 mg/dL (1.6-2.4); Potassium 3.8 mEq/L (3.5-5.1)
[2024-11-09] MEDS: MIDODRINE HCL 5 MG TABLET PO SCH (16:58)
[2024-11-09] MEDS: ENSURE CLEAR 200 ML CAN PO SCH (19:21)
--- NOTE | 2024-11-09 22:08 | PN ---
Date of Progress Note: 11/09/2024 Time Of Service: 1:10 p.m. Subjective: Mr. Day is sitting in his chair. His head is bowed down and neck had slumped over michelle ewhat to the left side. However, when encouraged to straighten up, he does so. He is very self-cons cious, but a large growth on his nose and it makes very poor eye contact. He does have some drainage noted from his nose area. Nursing staff did note episodes of hypotension around systolic of 103 and some blood pressure is down to 95 systolic yesterday. Objective: Again, some mild orthostatic positivity with changing position from sitting to standing. Otherwise, mild myalgias, arthralgias. He reports mild pain which is mitigated by current medicatio n regimen. Also, depression for which he is started on antidepressant medication. Laboratory Studies: No new laboratory studies except on yesterday, his sodium improved to 138 from 1 35, potassium 3.8, chloride 108, creatinine 0.47, magnesium 1.7, calcium 8.2, glucose 93. X-ray/imaging: KUB x-ray that was done on the showed nonobstructive bowel gas pattern. Moderat e stool in colon could reflect constipation in appropriate setting. Physical Examination: Vital Signs: Blood pressure currently 128/60, pulse 75, respiratory rate 18, temperature 97.6, oxyge n saturation 95%. General: Mr. Day is sitting in a chair, slumped forward somewhat and to the left, but can straight up when encouraged to do so. He does have again a large growth on his nose which has been chronical ly present. Otherwise, in terms of his right hip surgical site has good hemostasis. There is some m ild postoperative edema and he reports mild to moderate pain when mobilizing in and out of bed and at tempting ambulation. Progress Made With Physical And Occupational Therapy: With physical therapy, completed wheelchair mo bilization 120 feet with contact guard to minimum assistance. Did have difficulty with obstacle mya gement. Did fkx-bu-hfeaa transfers in parallel bars requiring maximum assistance. With occupational therapy, maximum assistance for nap-th-fpknx transfers and using the toilet with the use of toilet g rab bars, did not adhere to touchdown weightbearing precautions. Did require encouragement to use th e toilet instead of the water bottle and dependent for toilet hygiene. He later did mobilize a wheel chair 125 feet with standby assistance. Yzp-ij-jofov, maximum assistance. Assessment: Mr. Day is a 64-year-old patient in the rehabilitation unit with right intertrochanter ic hip fracture, making fair progress in terms of his recovery for mobilization with his touchdown we ightbearing status. Still has moderate pain, has orthostatic hypotension. It has been addressed wit h adjustment of his midodrine dosage. He is still hampered by depression and have poor posture and d ifficulty with leg movements at night, which have been addressed with Mirapex. He has malnutrition a nd anemia. Plan: 1.He will continue with his physical and occupational therapy 3 hours a day, 5 of 7 days. 2.Bath 5/25 and Tylenol as needed for pain, Eliquis 2.5 mg twice daily for DVT prophylaxis. The Du lcolax is on board for constipation, vitamin B12 for his energy level 1000 mg daily, duloxetine 20 mg for depression twice daily, gabapentin 100 mg twice daily for neuropathic pain, continues folic acid , gabapentin 300 mg at bedtime for neuropathic pain, milk of magnesia for constipation. He has magne sium oxide for muscle spasms, Megace for appetite stimulation. The midodrine is now 10 mg in morning and 5 mg at noon and 5 mg at 5 p.m., Ensure Enlive 237 mL 3 times daily, Mirapex 0.5 mg at night for his restless leg symptoms, and thiamine 100 mg daily for alcohol withdrawal prophylaxis. Comorbidities That Are Impacting Rehabilitation: His rehabilitation for the hip fracture is somewhat limited by depressed mood and difficulty to be well-motivated. He is on antidepressants which is he lpful. He has some difficulty participating aggressively potentially related to his worry about grow th on his nose, which may be addressed surgically after he is discharged. He does have orthostatic h ypotension and is another issue making it somewhat difficult for him to maintain upright posture without feeling dizzy. Again, midodrine adjusted to he lp with orthostatic symptoms. LB/MODL Voice ID: [id number] Report ID: [id number]
[2024-11-10] MEDS: MIDODRINE HCL 5 MG TABLET PO SCH (06:45)
--- NOTE | 2024-11-10 21:13 | PN ---
Date of Progress Note: 11/10/2024 Time Of Service: 1:10 p.m. Subjective: Mr. Day is sitting in a chair in his room. He does have some drainage from his nose, where there is an excessive growth of tissue. He was noting he had difficulty getting food to his mo uth, although he was able to use his towel accurately to wipe his nose and move his finger out and ba ck towards his chin without missing the chin. It was discussed that he may have spoons with larger h andles or bent spoons, which may be helpful to decrease its chance of missing the mouth, where he say s he will get the food sometimes to his face instead of his mouth. Objective: He does report mild myalgias and arthralgias. Some pain in the back. Again, difficulty with his ability to eat, but drinking, he has no issue, no challenge, no cough, no shortness of breat h while drinking. No other positives on systems review. Physical Examination: Vital Signs: Blood pressure 123/68, pulse of 77, respiratory rate 18, temperature 97, oxygen saturat ion 94%. General: Mr. Day is sitting in his chair beside the bed. HEENT: He is normocephalic. Again, large growth of his nose is unchanged. No bleeding. There is g ood hemostasis. Musculoskeletal: His right intertrochanteric femur fracture site has good hemostasis and some mild e rey expected in the right lower extremity. Laboratory Studies: No new laboratory studies. X-ray/imaging: No new x-rays or imaging. Medications: His medications have been reviewed. He is on Tylenol 500 mg every 6 hours as needed. Also, he has Ensure Clear, which he is receiving 237 mL twice daily in addition to midodrine 5 mg at 2 and 17, and 10 mg in the morning, helpful for orthostatic hypotension, which has been mitigated sin ce the change in his medication regimen. Progress Made With Physical And Occupational Therapy: With physical therapy today, he performed mult iple pxorcd-xq-vne transfers with maximum assistance. Multiple qxi-bn-bpdzc transfers with maximum a ssistance. Wheelchair mobilization of 325 feet with standby assistance. Did have SHE hose in place while he was ambulating. With occupational therapy, independent for supine to sit transfers. [facility] 2-person, sit to stand with grab bars, edge of bed, did again require maximum assistance due to im paired strength. Did complete tasks with quite slow motion. Has increased stiffness and difficulty with movement as he tried to ambulate with his touchdown weightbearing precautions. It is known that he, however, is mobilizing wheelchair very well as noted, 325 feet with standby assistance once he i s able to get to the wheelchair. Assessment: Mr. Day is a 64-year-old patient in the rehabilitation unit with a right intertrochant raphael fracture, status post repair. His pain is well managed. He is mobilizing very well via wheelch airs. Significant difficulty for [id number] due to bilateral lower extremity weakness. Does have orthostatic hypotension addressed by changing midodrine, from which he is doing well. Has malnutriti on addressed with Ensure. Restless leg symptoms addressed with Mirapex. Senokot for his constipatio n. Did have a history of alcohol use and he is on thiamine for prophylaxis. He has gabapentin for n europathic pain, duloxetine for neuropathic pain and depression, [place] as well for significant or sev ere pain. Plan: 1.Will continue with physical and occupational therapy as noted. 2.Continue with addressing his comorbid conditions with the medications which have been listed. He may benefit from using utensils that have larger handles and those will be prepared for the patient, and as needed assistance with feeding may be done. He does have a common-law who has been very helpful, and she may also when he is discharged home provide some help if need be while he is eating. He has no difficulty drinking from a straw or from a cup. LB/MODL Voice ID: [id number] Report ID: [id number]
[2024-11-12 08:16] LABS: Absolute Basophils 0.1 K/uL (0-0.5); Absolute Eosinophils 0.3 K/uL (0-0.5); Absolute Lymphocytes (CBC) 1.8 K/uL (0.7-4.9); Absolute Monocytes 0.7 K/uL (0.1-1.3); Absolute Neutrophil 3.6 K/uL (1.8-8.0); Basophils % 0.8 % (0-1.3); Eosinophils % 4.9 % (0-4.4); Hematocrit 36.9 % (39.6-49.0); Hemoglobin 12.6 g/dL (13.6-17.9); MCH 37.9 pg (27.0-35.0); MCHC 34.1 g/dL (32.0-36.0); MCV 111.1 fL (80-100); MPV 8.9 fL (7.6-11.3); Monocytes % 10.3 % (3.3-12.3); Platelets 206 thou/uL (152-406); RBC Red Blood Cell Count 3.32 M/uL (4.33-5.43); Red Cell Distribution Width 13.9 % (12.1-15.2)
[2024-11-12 08:35] LABS: Albumin 2.1 g/dL (3.4-5.0); Anion Gap 6.6 mEq/L (5.0-15.0); Magnesium 1.9 mg/dL (1.6-2.4); Potassium 3.6 mEq/L (3.5-5.1); Prealbumin 7.7 mg/dL (20-40)
[2024-11-12 09:31] LABS: Blood Morphology Comment NOTED (NOT SEEN); Macrocytosis 2+; Platelet Estimate ADEQ; White Blood Cell Scan OK (OK)
[2024-11-12] MEDS: NYSTATIN PWDR 100000 UNIT/GM TOP SCH (11:07)
[2024-11-12] MEDS: TRIAMCINOLONE ACET 0.1% CREAM 80 GM TOP SCH (14:09)
--- NOTE | 2024-11-12 22:50 | PN ---
Date of Progress Note: 11/12/2024 Time Of Service: 1:10 p.m. Subjective: Mr. Day is lying in his bed. He does report feeling somewhat better in terms of the p ain. Still appears depressed about not being as good a shape as he would like to be and he of course has a very excessive growth on the nose, he is very self-conscious about. Pain is fairly well manag ed in the right intertrochanteric region where he had surgery for the fracture. Objective: Mild myalgias and arthralgias. No rash. No headache. Some difficulty eating and drinki ng, but that is improving somewhat. No cough and no shortness of breath reported. Physical Examination: Vital Signs: Blood pressure 123/67, pulse 76, respiratory rate 18, temperature 97.8, oxygen saturati on 98%. General: Mr. Day is lying in bed. He is in no significant distress. HEENT: He does appear normocephalic and atraumatic. Again, large growth on the nose. He did report actually some more redness and itching on his face and his face actually does appear to have a signi ficant amount of red rash and will have triamcinolone 0.1% applied twice daily. Otherwise, good hemo stasis in the right hip surgical site. Laboratory Studies: White blood cell count 6.4, hemoglobin 12.6, platelets 206. Sodium 135, potassi um 3.6, chloride 104, carbon dioxide 28, BUN 10, creatinine 0.63, glucose 104, calcium 8.7, magnesium 1.2, prealbumin 7.7, albumin 2.1. Blood smear is okay. X-ray/imaging: No new x-rays or imaging. Medications: The change today is he has triamcinolone now added. He has midodrine for blood pressur e support. Has Mycostatin powder apply twice daily. Progress Made With Physical, Occupational, And Speech Therapy: With physical therapy today, supine-t o-sit transfers done with moderate assistance. Rsv-jm-azssl transfers, maximum assistance and he did so also in the parallel bars with maximum assistance. Wheelchair mobility was 300 feet with indepen dence. Did require some extra time due to slow movements. With Occupational Therapy, he did 3 times rsd-sg-owzzw, transfers with wheelchair, and grab bars with moderate to maximum assistance required. Did work on eating, increased functional level and set up for that and did upper extremity exercise s, biceps curls. Assessment: Mr. Day is a 64-year-old patient in rehabilitation with a right intertrochanteric frac ture, status post surgical repair. He still has decreased mobility, decreased physical functioning, difficulty eating, significant difficulty with oea-ch-khflq and ambulation, but much better with whee lchair mobilization. He does have a rash on his face consistent with his condition and he has some i tching. He has triamcinolone now added. Also, depression is there. He has pain of course from surg alessia and restless leg symptoms along with constipation. Plan: 1.He will continue with physical and occupational therapy 3 hours a day, 5 of 7 days. 2.We will continue with his list of comorbid condition medications including adding triamcinolone to the face twice daily and continue aggressive physical therapy to help him improve his condition and return home. He does have a common-law who is there to help when he goes back home, and he will of course need more therapy than is allowed in inpatient rehabilitation. WILBER/NABILA Voice ID: [id number] Report ID: [id number]
[2024-11-13] MEDS: ACETAMINOPHEN 500 MG TAB PO PRN (07:56)
--- NOTE | 2024-11-13 13:50 | P.RH.PN ---
Estimated Length of Stay: 15 Expected Discharge Date: 11/18/24 Discharge Disposition Plan: Home Family Support: Yes Nursing Home Goal: Mobility, Transfers, Self Care Vital Signs: Last Vital Signs Temp 98.4 F 11/13/24 07:00 Pulse 80 11/13/24 07:00 Resp 16 11/13/24 07:00 BP 115/59 L 11/13/24 07:00 Pulse Ox 96 11/13/24 07:00 Laboratory: Laboratory Last Values WBC 6.40 thou/uL (4.3-10.9) 11/12/24 07:57 RBC 3.32 M/uL (4.33-5.43) L 11/12/24 07:57 Hgb 12.6 g/dL (13.6-17.9) L 11/12/24 07:57 Hct 36.9 % (39.6-49.0) L 11/12/24 07:57 MCV 111.1 fL (80-100) H 11/12/24 07:57 MCH 37.9 pg (27.0-35.0) H 11/12/24 07:57 MCHC 34.1 g/dL (32.0-36.0) 11/12/24 07:57 RDW 13.9 % (12.1-15.2) 11/12/24 07:57 Plt Count 206 thou/uL (152-406) 11/12/24 07:57 MPV 8.9 fL (7.6-11.3) 11/12/24 07:57 Plt Distribution Width Cancelled 11/04/24 17:46 Absolute Nucleated RBC Cancelled 11/04/24 17:46 Neutrophils % 56.0 % (41.7-73.7) 11/12/24 07:57 Lymphocytes % 28.0 % (15.3-44.8) 11/12/24 07:57 Monocytes % 10.3 % (3.3-12.3) 11/12/24 07:57 Eosinophils % 4.9 % (0-4.4) H 11/12/24 07:57 Basophils % 0.8 % (0-1.3) 11/12/24 07:57 Nucleated RBC % Cancelled 11/04/24 17:46 Absolute Neutrophils 3.6 K/uL (1.8-8.0) 11/12/24 07:57 Absolute Lymphocytes 1.8 K/uL (0.7-4.9) 11/12/24 07:57 Absolute Monocytes 0.7 K/uL (0.1-1.3) 11/12/24 07:57 Absolute Eosinophils 0.3 K/uL (0-0.5) 11/12/24 07:57 Absolute Basophils 0.1 K/uL (0-0.5) 11/12/24 07:57 Diff Path Review Cancelled 11/04/24 17:46 Platelet Estimate Adeq 11/12/24 07:57 Macrocytosis 2+ 11/12/24 07:57 Rouleaux Noted 11/05/24 05:41 Morphology Comment Noted (NOT SEEN) 11/12/24 07:57 Sodium 135 mEq/L (136-145) L 11/12/24 07:57 Potassium 3.6 mEq/L (3.5-5.1) 11/12/24 07:57 Chloride 104 mEq/L (98-107) 11/12/24 07:57 Carbon Dioxide 28 mEq/L (21-32) 11/12/24 07:57 Anion Gap 6.6 mEq/L (5.0-15.0) 11/12/24 07:57 BUN 10 mg/dL (7-18) 11/12/24 07:57 Creatinine 0.63 mg/dL (0.70-1.30) L 11/12/24 07:57 Est GFR (CKD-EPI) 106 ml/min (=/>90) 11/12/24 07:57 Glucose 104 mg/dL (74-106) 11/12/24 07:57 Calcium 8.7 mg/dL (8.5-10.1) 11/12/24 07:57 Magnesium 1.9 mg/dL (1.6-2.4) 11/12/24 07:57 Albumin 2.1 g/dL (3.4-5.0) L 11/12/24 07:57 Prealbumin 7.7 mg/dL (20-40) L 11/12/24 07:57 Urine Color Yellow (Yellow) 11/04/24 21:25 Urine Clarity Clear (Clear) 11/04/24 21:25 Urine pH 8.0 (5.0-7.0) H 11/04/24 21:25 Ur Specific [place] 1.015 (1.005-1.030) 11/04/24 21:25 Glucose (UA)(Auto) Negative (Negative) 11/04/24 21: Urine Ketones Negative (Negative) 11/04/24 21: Urine Blood Negative (Negative) 11/04/24: Urine Nitrite Negative (Negative) 11/04/24: Urine Bilirubin Negative (Negative) 11/04/24: Urine Urobilinogen 1+ (Normal) H 11/04/24 21:25 Ur Leukocyte Esterase Negative [place]/uL (Negative) 11/04/24: Urine RBC <5 /HPF (None Seen) 11/04/24: Urine WBC <5 /HPF (<5) 11/04/24: Ur Squamous Epith Cells None seen /HPF (None Seen) 11/04/24: Urine Bacteria None seen /HPF (<20) 11/04/24: Urine Mucus Slight /HPF (None Seen) 11/04/24: Urine Culture Reflexed Not needed 11/04/24 21: Urine Total Protein Negative (Negative) 11/04/24: Smear Scan Ok (OK) 11/12/24 07:57 Weight: 175 lb Wound Present: No Closed Surgical Incision Present: Yes Negative Pressure Wound Therapy Present: No Physician Update: BIMS is 15, Needs mod assist for bed mobility, max assist for sit to stand due to TDWB. None functional walking only 3-4 steps in the parallel bars. WC 250'. Not met LTG but 4/6 STG. Supervision with upper body dressing. Lower body dressing and foot wear in min to mod assist. Very slow overall movements. Summary: Patient's care plan and correction goals have been reviewed and revised as necessary. Please see the Rehabilitation Signature page for all necessary signatures.
--- NOTE | 2024-11-16 09:59 | P.CNS ---
Date of Consult: 11/16/24 Reason for Consult: elongated painful toenails Allergies No Known Allergies Allergy (Verified 11/04/24 18:44) Home Medications: Folic Acid 1 mg PO DAILY #30 tab 07/10/22 Hydrocodone 5/APAP 325 [[place] 5/325*] 1 tab PO Q6H PRN 3 Days #10 tab 07/10/22 Magnesium Oxide [Mag 0X*] 400 mg PO BID 07/10/22 Thiamine HCl [Vitamin B-1*] 100 mg PO DAILY #30 tab 07/10/22 Docusate [Colace Cap*] 200 mg PO DAILY PRN cap 11/04/24 LORazepam [Ativan*] 0.5 mg PO Q8H PRN 30 Days #30 tab 11/04/24 Midodrine HCl [Proamatine*] 10 mg PO TID PRN tab 11/04/24 - Past Medical/Surgical History Diabetic: No -: Hidradenitis Suppurativa -: Hypertension -: Alcoholism -: Slipped discs in back -: multiple surgical I&D areas Psychosocial/ Personal History: Patient lives at home with significant other. He has a daughter. - Social History Smoking Status: Current every day smoker Alcohol use: Yes CD- Drugs: No Caffeine use: No Place of Residence: Home Review of Systems 10-point ROS is otherwise unremarkable Physical Examination Temp Pulse Resp BP Pulse Ox 97.6 F 79 18 121/57 L 97 11/16/24 07:23 11/16/24 07:23 11/16/24 07:23 11/16/24 07:23 11/16/24 07:23 General: Alert, In no apparent distress, Oriented x3 Cardiovascular: No edema, Abnormal pulses (0/4 dp and pt pulse bilateral lower extremity) Capillary refill: >2 Seconds Musculoskeletal: No clubbing, No swelling, No contractures, No erythema, No tenderness, No warmth Integumentary: No rashes, No breakdown, No tenderness/swelling, No erythema, No warmth, No cyanosis, Other (Skin cool to touch bilateral lower extremity, thickened elongated nails x 10. DTI left heel) Neurological: Abnormal sensation - Problems (1) Tinea unguium Current Visit: Yes Status: Acute (2) Generalized atherosclerosis Current Visit: Yes Status: Acute Conclusions/Impression: Mechanical debridement of nails x 10 at bedside Continue offloading left heel
--- NOTE | 2024-11-16 23:07 | PN ---
Date of Progress Note: 11/16/2024 Time Of Service: 1:10 p.m. Subjective: Mr. Day is mobilizing down the hallway with a wheelchair. He is very happy about how he is doing so far. Mild pain in the right intertrochanteric hip fracture surgical site. Still has some drainage from his nose and has a very large excessive growth across the nose, which is a chronic condition and the patient is being followed for that by his primary care physician and surgeons. He has no new complaints and will be ready to continue therapy when he is discharged to his home. Objective: Denies any fevers, chills, nausea, vomiting, myalgias, arthralgias. No cough. No rash. No gastrointestinal or genitourinary complaints. Physical Examination: Vital Signs: Blood pressure 135/62, pulse 78, respiratory rate 18, temperature 97.9, oxygen saturati on 99%. General: Mr. Day is sitting in a chair, mobilizing around the hallway. HEENT: Does have the excessive growth on his face. There is a rash on his forehead. It is now larg curtis cleared up and he has no itching noted there. No itching in the arms as well. Again, mild pain in the right hip surgical site, which has good hemostasis. Laboratory Studies: No new laboratory studies. X-ray/imaging: No new x-rays or imaging. Medications: Medications have been reviewed and remain unchanged. Today, he was seen by Dr. Evens Montano in the Podiatry Service and had debridement of the toenails at the bedside. Progress Made With Physical And Occupational Therapy: Today with physical therapy, he did complete w heelchair mobilization 325 feet with modified independence. Did require rrkoalbb-jj-usieymw [place] ce to take 2 steps with a rolling walker and again at one point, he did wheelchair mobilization 100 f eet with modified independence. He did gait training in parallel bars 2-3 feet, maximum assistance r equired. Bed mobility was done with modified independence. Hru-wp-pfxcm and transfers with contact guard assistance. He was able to maintain touchdown weightbearing status, but required some cuing fo r that. With occupational therapy, moderate assistance for wheelchair to shower and transferring wit h a grab bar, partial assistance for donning and doffing footwear, lower body garments and did not re quire any significant rest during those activities. Assessment And Plan: Mr. Day is a 64-year-old patient in the rehabilitation unit with a right inte rtrochanteric femur fracture, status post surgical repair. He has made very good progress so far wit physical and occupational therapy. He is ready for discharge in the morning; however, he needs to continue therapy. He still has decreased mobility, decreased physical functioning, large growth on h is nose. He has improvement in the rash on his face with steroid topically applied. In addition, he does have depression addressed with Cymbalta. His right hip pain addressed with gabapentin and Tyle nol along with [place]. Melatonin for insomnia. Pramipexole for restless leg symptoms. Senokot for c onstipation. Did have excessive alcohol consumption, but has not had any withdrawal symptoms and is on thiamine for that. He has orthostatic hypotension on midodrine. Ativan for anxiety, Ensure Clear for malnutrition and has iron supplementation and B12 for anemia. Again, he will be discharged in t he morning and continue to do therapy via Home Health. He is going to shelter to continue benito. WILBER/NABILA Voice ID: [id number] Report ID: [id number]
[2024-11-17 06:59] VITALS: TEMP 98.3
[2024-11-17 07:14] VITALS: BP 112/59
== END 2024-11-17 10:00 | DRG 560 ==
LOC: 5TH 17:25
PROVIDERS: ADMIT Psychiatry & Neurology Neurology with Special Qualifications in Child Neurology; ATTEND Psychiatry & Neurology Neurology with Special Qualifications in Child Neurology
PROC: 0HBRXZZ Excision of Toe Nail, External Approach (ICD-10-PCS; principal; 2024-11-16)
PROC: 0HBRXZZ Excision of Toe Nail, External Approach (ICD-10-PCS; 2024-11-16)
PROC: 0HBRXZZ Excision of Toe Nail, External Approach (ICD-10-PCS; 2024-11-16)
PROC: 0HBRXZZ Excision of Toe Nail, External Approach (ICD-10-PCS; 2024-11-16)
PROC: 0HBRXZZ Excision of Toe Nail, External Approach (ICD-10-PCS; 2024-11-16)
PROC: 0HBRXZZ Excision of Toe Nail, External Approach (ICD-10-PCS; 2024-11-16)
PROC: 0HBRXZZ Excision of Toe Nail, External Approach (ICD-10-PCS; 2024-11-16)
PROC: 0HBRXZZ Excision of Toe Nail, External Approach (ICD-10-PCS; 2024-11-16)
PROC: 0HBRXZZ Excision of Toe Nail, External Approach (ICD-10-PCS; 2024-11-16)
PROC: 0HBRXZZ Excision of Toe Nail, External Approach (ICD-10-PCS; 2024-11-16)
DX: S72.141D Displaced intertrochanteric fracture of right femur, subsequent encounter for closed fracture with routine healing (principal); E44.1 Mild protein-calorie malnutrition; I10 Essential (primary) hypertension; K59.00 Constipation, unspecified; D50.9 Iron deficiency anemia, unspecified; F17.200 Nicotine dependence, unspecified, uncomplicated; I95.9 Hypotension, unspecified; F10.20 Alcohol dependence, uncomplicated; S22.089D Unspecified fracture of T11-T12 vertebra, subsequent encounter for fracture with routine healing; Z68.23 Body mass index [BMI] 23.0-23.9, adult; S32.019D Unspecified fracture of first lumbar vertebra, subsequent encounter for fracture with routine healing; S32.029D Unspecified fracture of second lumbar vertebra, subsequent encounter for fracture with routine healing; S32.039D Unspecified fracture of third lumbar vertebra, subsequent encounter for fracture with routine healing; L73.2 Hidradenitis suppurativa; F32.A Depression, unspecified; G25.81 Restless legs syndrome; B35.1 Tinea unguium; I70.91 Generalized atherosclerosis; S90.32XD Contusion of left foot, subsequent encounter; F41.9 Anxiety disorder, unspecified
CPT/HCPCS: 36415; 74018; 80048; 81001; 82040; 83735; 84134; 85025; 87086; 87088; 97110; 97116; 97163; 97165; 97530; 97542; J1650; J2003; J3420; J7030